=== PATIENT | female | born 1940 | race African-American/Black ===

== ENCOUNTER 2016-08-10 11:48 | Emergency (ER) | payer MEDICARE, OTHER ==
[~2016-08-10] VITALS: Ht 162.6 cm; Wt 78.0 kg
[~2016-08-10 11:48] MED LIST: AMLO5TAB22 PO; ASPI325T PO; ASPI81TA82 PO; GLUC5TAB3 PO; HYDR12.56 PO; LISI-363 PO; LORTA5 PO; NAPR500 PO; SYNT112T PO; TYLE500T PO
[2016-08-10 11:50] VITALS: BP 189/101; PULSE 87; RESP 16; TEMP 97.8; O2SAT 98
--- NOTE | 2016-08-10 12:06 | PD ---
Physical Exam Date Seen by Provider: Aug 10, 2016 Time Seen by Provider: 12:02 Narrative 76 year old female presents to the emergency department for evaluation of right hip, right knee pain, right arm pain after a fall that occurred yesterday. She reports history of falls due to peripheral neuropathy. No chest pain/headache/ dizziness before fall. Patient also reports abscess under left breast. Patient was seen at urgent care yesterday for the same. Patient awaiting bed placement. Data Data Last Documented VS Vital Signs Date Time Temp Pulse Resp B/P Pulse Ox O2 Delivery O2 Flow Rate FiO2 08/10/16 11:50 97.8 87 16 189/101 98 MDM Supervised Visit with KIEL: Charity Figueroa Aug 10, 2016 12:06
[2016-08-10] MEDS ORDERED: SODIUM CHLORIDE 0.9% FLUSH 10 ML FLUSH IVF PRN (12:45)
[2016-08-10] MEDS ORDERED: LIDOCAINE 1%/EPINEPHrine 1:100,000 SOLN 20 ML VIAL INFIL ONE (12:45)
[2016-08-10 12:54] LABS: AUTOMATED NEUTROPHIL # 7.2 TH/MM3 (1.8-7.7); BASOPHIL # 0.1 TH/MM3 (0-0.2); BASOPHIL % 0.5 % (0.0-2.0); EOSINOPHIL # 0.1 TH/MM3 (0-0.4); EOSINOPHIL % 0.6 % (0.0-4.0); HEMATOCRIT 32.6 % (35.0-46.0); HEMO FLAGS DIFF FINAL; LYMPH % 23.2 % (9.0-44.0); LYMPHOCYTE # 2.4 TH/MM3 (1.0-4.8); MEAN CELL VOLUME 79.4 FL (80.0-100.0); MEAN CORPUSCULAR HEMOGLOBIN 26.1 PG (27.0-34.0); MEAN CORPUSCULAR HGB CONC 32.8 % (32.0-36.0); MONO % 7.2 % (0.0-8.0); NEUT % 68.5 % (16.0-70.0); PLATELET COUNT 265 TH/MM3 (150-450); RED CELL DISTRIBUTION WIDTH 13.5 % (11.6-17.2); WHITE BLOOD COUNT 10.5 TH/MM3 (4.0-11.0)
[2016-08-10 13:15] LABS: POTASSIUM 3.5 MEQ/L (3.5-5.1)
[2016-08-10 13:19] LABS: BLOOD, URINE NEG (NEG); COMMENT (UR) CATH-CULT NOT IND; CULTURE IF INDICATED CATH CULTURE NOT IND; GLUCOSE,URINE 70 mg/dL (NEG); KETONE, URINE NEG (NEG); NITRITE,URINE NEG (NEG); PH, URINE 5.5 (5.0-8.5); SQUAMOUS EPITHELIAL CELL URINE 1 /hpf (0-5); URINE COLOR LIGHT-YELLOW (YELLW/STRAW)
--- NOTE | 2016-08-10 13:25 | PD ---
HPI Chief Complaint: Fall Time Seen by Provider: 12:26 Travel History International Travel<30 days: No Contact w/Intl Traveler<30days: No Traveled to known affect area: No History of Present Illness HPI Patient is a 76-year-old female who presents the emergency department with several symptoms. First she complains of generalized weakness, fatigue and frequent falls. She has a history of frequent falls and uses a walker at home. Over the last week she felt she's been more fatigued than typical and has had now for falls. Thankfully none of these time she has hit her head or injured herself other than small abrasions and a bruise to the right hip. She does note some right sided shoulder pain. She was seen at urgent care for this yesterday, she is unable to tell me whether she had her shoulder image. She also complains of an abscess or swelling to the left breast and was at urgent care yesterday was prescribed antibiotics and states that it is now draining. PFSH Past Medical History Arthritis: Yes (GENERALIZED) Anxiety: No Depression: No Heart Rhythm Problems: No Cancer: No Cardiovascular Problems: Yes High Cholesterol: Yes Chest Pain: No Congestive Heart Failure: No Cerebrovascular Accident: No Diabetes: Yes GERD: No Genitourinary: No Hiatal Hernia: No Hypertension: Yes Kidney Stones: Yes (HX OF ONE STONE WAS ABLE TO PASS THE STONE) Neurologic: Yes (HERNIATED DISCS NECK AND LOWER BACK) Reproductive: No Respiratory: No Migraines: No Seizures: No Thyroid Disease: Yes Ulcer: No ?: Not Menopausal: Yes : 2 Para: 2 Past Surgical History Cholecystectomy: Yes Hysterectomy: Yes Other Surgery: Yes (LYPOSUCTION, CARPAL TUNNEL SURG BILAT) Social History Alcohol Use: No Tobacco Use: No Substance Use: No Allergies-Medications (Allergen,Severity, Reaction): Coded Allergies: Flexeril (Verified Allergy, Severe, GASTRIC BURNING, 08/10/16) Naproxen (Verified Allergy, Severe, GASTRIC BURNING, 08/10/16) Sulfa (Verified Adverse Reaction, Unknown, Nausea/Vomiting, 08/10/16) Reported Meds & Prescriptions Reported Meds & Active Scripts Active Hydrocodone/Acetaminophen 5 mg/325 mg Acetaminophen 325/5 Hydrocodone Tab 0.5-1 Tab PO Q6H PRN Reported Aspirin 325 mg (Aspirin) 325 Mg Tab 325 Mg PO DAILY Amlodipine Besylate 5 mg (Amlodipine Besylate) 5 Mg Tab 1 Tab PO DAILY Hydrochlorothiazide 12.5 Mg Tab 12.5 Mg PO DAILY Naprosyn (Naproxen) 500 Mg Tab 500 Mg PO Q12 Aspir-81 (Aspirin) 81 Mg Tab 81 Mg PO DAILY Tylenol (Acetaminophen) 500 Mg Tab 500 Mg PO Q6HPRN Glucovance 5/500 (Glyburide/Metformin) Tab 1 Tab PO BID Synthroid (Levothyroxine Sodium) 112 Mcg Tab 112 Mcg PO DAILY Lisinopril 20 mg (Lisinopril) 20 Mg Tab 20 Mg PO BID Review of Systems Except as stated in HPI: all other systems reviewed are Neg Physical Exam Narrative GENERAL: Elderly female in no acute distress SKIN: Erythema on the underside of the left breast with abscess that is spontaneously draining with surrounding warmth HEAD: Atraumatic. Normocephalic. EYES: Pupils equal and round. No scleral icterus. No injection or drainage. ENT: No nasal bleeding or discharge. Mucous membranes pink and moist. NECK: Supple without midline tenderness to palpation CARDIOVASCULAR: Regular rate and rhythm. No murmur appreciated. RESPIRATORY: No accessory muscle use. Clear to auscultation. Breath sounds equal bilaterally. GASTROINTESTINAL: Abdomen soft, non-tender, nondistended. MUSCULOSKELETAL: No midline tenderness to palpation of thoracic or lumbar spine. Abrasions on the knees and ecchymosis to the right hip. Bilateral lower extremity range of motion and strength unremarkable. Right upper extremity with reproducible point tenderness to palpation with pain in the right posterior glenohumeral joint with pain increased with range of motion. Distal sensation and pulses intact NEUROLOGICAL: Awake and alert. Normal speech. PSYCHIATRIC: Appropriate mood and affect; insight and judgment normal. Data Data Last Documented VS Vital Signs Date Time Temp Pulse Resp B/P Pulse Ox O2 Delivery O2 Flow Rate FiO2 08/10/16 12:35 Room Air 08/10/16 11:50 97.8 87 16 189/101 98 Orders Electrocardiogram (08/10/16 12:31) Basic Metabolic Panel (Bmp) (08/10/16 12:31) Complete Blood Count With Diff (08/10/16 12:31) Urinalysis - C+S If Indicated (08/10/16 12:31) Iv Access Insert/Monitor (08/10/16 12:31) Sodium Chloride 0.9% Flush (Ns Flush) (08/10/16 12:45) Lidocai-Epi 1%-1:100,000 Inj (Xylocaine- (08/10/16 12:45) Shoulder, Complete (>2vws) (08/10/16 ) Labs Laboratory Tests Test 08/10/16 12:45 White Blood Count 10.5 TH/MM3 Red Blood Count 4.10 MIL/MM3 Hemoglobin 10.7 GM/DL Hematocrit 32.6 % Mean Corpuscular Volume 79.4 FL Mean Corpuscular Hemoglobin 26.1 PG Mean Corpuscular Hemoglobin 32.8 % Concent Red Cell Distribution Width 13.5 % Platelet Count 265 TH/MM3 Mean Platelet Volume 10.1 FL Neutrophils (%) (Auto) 68.5 % Lymphocytes (%) (Auto) 23.2 % Monocytes (%) (Auto) 7.2 % Eosinophils (%) (Auto) 0.6 % Basophils (%) (Auto) 0.5 % Neutrophils # (Auto) 7.2 TH/MM3 Lymphocytes # (Auto) 2.4 TH/MM3 Monocytes # (Auto) 0.8 TH/MM3 Eosinophils # (Auto) 0.1 TH/MM3 Basophils # (Auto) 0.1 TH/MM3 CBC Comment DIFF FINAL Differential Comment Urine Color LIGHT-YELLOW Urine Turbidity CLEAR Urine pH 5.5 Urine Specific [place] 1.007 Urine Protein NEG mg/dL Urine Glucose (UA) 70 mg/dL Urine Ketones NEG mg/dL Urine Occult Blood NEG Urine Nitrite NEG Urine Bilirubin NEG Urine Urobilinogen LESS THAN 2.0 MG/DL Urine Leukocyte Esterase NEG Urine RBC LESS THAN 1 /hpf Urine WBC LESS THAN 1 /hpf Urine Squamous Epithelial 1 /hpf Cells Microscopic Urinalysis Comment CATH-CULT NOT IND Sodium Level 140 MEQ/L Potassium Level 3.5 MEQ/L Chloride Level 101 MEQ/L Carbon Dioxide Level 32.0 MEQ/L Anion Gap 7 MEQ/L Blood Urea Nitrogen 11 MG/DL Creatinine 0.75 MG/DL Estimat Glomerular Filtration 90 ML/MIN Rate Random Glucose 213 MG/DL Calcium Level 9.4 MG/DL [facility] Medical Decision Making Medical Screen Exam Complete: Yes Emergency Medical Condition: Yes Medical Record Reviewed: Yes Differential Diagnosis 76-year-old female here with complaint of generalized weakness, frequent falls, right shoulder pain and an abscess under the breast. Differential includes failure to thrive, physical deconditioning, frequent falls, electrolyte abnormality, symptomatic anemia, UTI, musculoskeletal shoulder pain, ecchymosis , fracture, dislocation, breast abscess and cellulitis. Narrative Course He shouldn't placed on monitor, IV established and blood obtained. Her abscess was incised and drained, please see procedure note from nurse practitioner. CBC , BMP, urinalysis unremarkable. X-ray of the right shoulder showed arthritic changes but no acute fracture. Twelve-lead EKG showed sinus rhythm without notable ST abnormalities, normal intervals. Diagnosis Primary Impression: Left breast abscess Additional Impressions: Frequent falls Contusion of right shoulder Qualified Code: S40.011A - Contusion of right shoulder, initial encounter Referrals: Primary Care Physician 3 days Patient Instructions: Breast Abscess Drainage (DC), General Instructions Additional Instructions: Follow-up with primary care provider on Saturday for wound check of breast abscess. Continue Antibiotics as prescribed. Med/Other Pt SpecificInfo: No Change to Meds Disposition: 01 DISCHARGE HOME Condition: Stable Arina Roche MD Aug 10, 2016 13:25
--- NOTE | 2016-08-10 13:29 | PD ---
Physical Exam Time Seen by Provider: 13:28 Narrative I incised and drained the abscess to the left breast. Data Data Last Documented VS Vital Signs Date Time Temp Pulse Resp B/P Pulse Ox O2 Delivery O2 Flow Rate FiO2 08/10/16 12:35 Room Air 08/10/16 11:50 97.8 87 16 189/101 98 Orders Electrocardiogram (08/10/16 12:31) Basic Metabolic Panel (Bmp) (08/10/16 12:31) Complete Blood Count With Diff (08/10/16 12:31) Urinalysis - C+S If Indicated (08/10/16 12:31) Iv Access Insert/Monitor (08/10/16 12:31) Sodium Chloride 0.9% Flush (Ns Flush) (08/10/16 12:45) Lidocai-Epi 1%-1:100,000 Inj (Xylocaine- (08/10/16 12:45) Shoulder, Complete (>2vws) (08/10/16 ) Labs Laboratory Tests Test 08/10/16 12:45 White Blood Count 10.5 TH/MM3 Red Blood Count 4.10 MIL/MM3 Hemoglobin 10.7 GM/DL Hematocrit 32.6 % Mean Corpuscular Volume 79.4 FL Mean Corpuscular Hemoglobin 26.1 PG Mean Corpuscular Hemoglobin 32.8 % Concent Red Cell Distribution Width 13.5 % Platelet Count 265 TH/MM3 Mean Platelet Volume 10.1 FL Neutrophils (%) (Auto) 68.5 % Lymphocytes (%) (Auto) 23.2 % Monocytes (%) (Auto) 7.2 % Eosinophils (%) (Auto) 0.6 % Basophils (%) (Auto) 0.5 % Neutrophils # (Auto) 7.2 TH/MM3 Lymphocytes # (Auto) 2.4 TH/MM3 Monocytes # (Auto) 0.8 TH/MM3 Eosinophils # (Auto) 0.1 TH/MM3 Basophils # (Auto) 0.1 TH/MM3 CBC Comment DIFF FINAL Differential Comment Urine Color LIGHT-YELLOW Urine Turbidity CLEAR Urine pH 5.5 Urine Specific [place] 1.007 Urine Protein NEG mg/dL Urine Glucose (UA) 70 mg/dL Urine Ketones NEG mg/dL Urine Occult Blood NEG Urine Nitrite NEG Urine Bilirubin NEG Urine Urobilinogen LESS THAN 2.0 MG/DL Urine Leukocyte Esterase NEG Urine RBC LESS THAN 1 /hpf Urine WBC LESS THAN 1 /hpf Urine Squamous Epithelial 1 /hpf Cells Microscopic Urinalysis Comment CATH-CULT NOT IND Sodium Level 140 MEQ/L Potassium Level 3.5 MEQ/L Chloride Level 101 MEQ/L Carbon Dioxide Level 32.0 MEQ/L Anion Gap 7 MEQ/L Blood Urea Nitrogen 11 MG/DL Creatinine 0.75 MG/DL Estimat Glomerular Filtration 90 ML/MIN Rate Random Glucose 213 MG/DL Calcium Level 9.4 MG/DL MDM Supervised Visit with KEIL: Yes Narrative Course I incised and drained the abscess to the left breast. See my Procedure note for incision and drainage. Procedures Procedure Narrative INCISION AND DRAINAGE OF ABSCESS: The area was prepped and was sterilely draped. A subcutaneous wheal of 1% Xylocaine with epinephrine with a total number 3 mL was used to anesthetize the area properly. A number 11 scalpel was used to make a 1-cm incision across the area of the abscess. The abscess was drained, complex loculations were broken down, and irrigated with normal saline. Cultures were obtained. Quarter inch iodoform packing was placed in the wound. Sterile dressing applied. Patient advised to have packing removed in two days. Diagnosis Primary Impression: Left breast abscess Additional Impressions: Frequent falls Contusion of right shoulder Qualified Code: S40.011A - Contusion of right shoulder, initial encounter Referrals: Primary Care Physician 3 days Additional Instruction: Follow-up with primary care provider on Saturday for wound check of breast abscess. Continue Antibiotics as prescribed. Beata Nava Aug 10, 2016 13:29
--- NOTE | 2016-08-10 13:42 | RADRPT ---
EXAM DATE/TIME: 08/10/2016 13:10 [place] COMPARISON: HIP LEFT (AP & LAT), June 07, 2014, 12:07. INDICATIONS : Right shoulder pain post fall yesterday. MEDICAL HISTORY : None. SURGICAL HISTORY : None. ENCOUNTER: Initial ACUITY: 2 days PAIN SCORE: 7/10 LOCATION: Right shoulder FINDINGS: The humeral head is well situated within the glenoid fossa. There are moderate degenerative changes. No acute fracture is seen. There are degenerative changes within the a.c. joint. The visualized pulmonary parenchyma is clear. The visualized ribs appear grossly intact. CONCLUSION: 1. Arthritic changes in the glenohumeral joint and acromioclavicular joint. No acute fracture. Wm Sadler MD on August 10, 2016 at 13:40 Board Certified Radiologist. This report was verified electronically.
[2016-08-10 13:57] VITALS: BP 159/75; PULSE 71; RESP 18; O2SAT 98
--- NOTE | 2016-08-11 14:38 | EKG ---
Date Performed: 08/10/2016 Time Performed: 13:35:52 PTAGE: 76 years EKG: Sinus rhythm MODERATE VOLTAGE CRITERIA FOR LVH, CONSIDER NORMAL VARIANT POSSIBLE ANTERIOR MYOCARDIAL INFARCTION C ompared to prior tracing no significant change BORDERLINE ECG PREVIOUS TRACING : 08/12/2011 14.07 DOCTOR: Christo Atkinson Interpretating Date/Time 08/11/2016 14:34:51
== END 2016-08-10 14:10 | disposition home or self-care (01) ==
LOC: NEPD 11:48
DX: L02.818 Cutaneous abscess of other sites (principal); S40.011A Contusion of right shoulder, initial encounter; B95.62 Methicillin resistant Staphylococcus aureus infection as the cause of diseases classified elsewhere; R29.6 Repeated falls; R53.1 Weakness; E11.9 Type 2 diabetes mellitus without complications; I10 Essential (primary) hypertension; R94.31 Abnormal electrocardiogram [ECG] [EKG]; W01.0XXA Fall on same level from slipping, tripping and stumbling without subsequent striking against object, initial encounter; Y93.01 Activity, walking, marching and hiking; Y92.009 Unspecified place in unspecified non-institutional (private) residence as the place of occurrence of the external cause
CPT/HCPCS: 73030; 80048; 81001; 85025; 86403; 87070; 87186; 93005; 99285

== ENCOUNTER 2016-08-20 14:18 | Emergency (ER) | payer MEDICARE, OTHER ==
[~2016-08-20] VITALS: Ht 160 cm; Wt 77.5 kg
[2016-08-20 14:21] VITALS: BP 223/104; PULSE 66; RESP 16; TEMP 98.6; O2SAT 99
--- NOTE | 2016-08-20 16:27 | PD ---
HPI Chief Complaint: Skin Problem Time Seen by Provider: 16:21 Travel History International Travel<30 days: No Contact w/Intl Traveler<30days: No Traveled to known affect area: No History of Present Illness HPI 76-year-old female here with complaint of abscess. Patient seen here by myself recently for left breast abscess this was incised and drained. The packing is still in. Patient states that it is still painful, though is no longer draining. She also complains of right sided hip pain. On her previous ER visit she had a large hematoma to the lateral aspect of the hip. She's been able to ambulate and bear weight with her walker. PFSH Past Medical History Arthritis: Yes (GENERALIZED) Anxiety: No Depression: No Heart Rhythm Problems: No Cancer: No Cardiovascular Problems: Yes High Cholesterol: Yes Chest Pain: No Congestive Heart Failure: No Cerebrovascular Accident: No Diabetes: Yes GERD: No Genitourinary: No Hiatal Hernia: No Hypertension: Yes Kidney Stones: Yes (HX OF ONE STONE WAS ABLE TO PASS THE STONE) Neurologic: Yes (HERNIATED DISCS NECK AND LOWER BACK) Reproductive: No Respiratory: No Migraines: No Seizures: No Thyroid Disease: Yes Ulcer: No Menopausal: Yes : 2 Para: 2 Past Surgical History Cholecystectomy: Yes Hysterectomy: Yes Other Surgery: Yes (LYPOSUCTION, CARPAL TUNNEL SURG BILAT) Social History Alcohol Use: No Tobacco Use: No Substance Use: No Allergies-Medications (Allergen,Severity, Reaction): Coded Allergies: Flexeril (Verified Allergy, Severe, GASTRIC BURNING, 08/10/16) Naproxen (Verified Allergy, Severe, GASTRIC BURNING, 08/10/16) *MDRO Multi-Drug Resistant Organism (Verified Adverse Reaction, Unknown, ) 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 Sulfa (Verified Adverse Reaction, Unknown, Nausea/Vomiting, 08/10/16) Reported Meds & Prescriptions Reported Meds & Active Scripts Active Hydrocodone/Acetaminophen 5 mg/325 mg Acetaminophen 325/5 Hydrocodone Tab 0.5-1 Tab PO Q6H PRN Reported Aspirin 325 mg (Aspirin) 325 Mg Tab 325 Mg PO DAILY Amlodipine Besylate 5 mg (Amlodipine Besylate) 5 Mg Tab 1 Tab PO DAILY Hydrochlorothiazide 12.5 Mg Tab 12.5 Mg PO DAILY Naprosyn (Naproxen) 500 Mg Tab 500 Mg PO Q12 Aspir-81 (Aspirin) 81 Mg Tab 81 Mg PO DAILY Tylenol (Acetaminophen) 500 Mg Tab 500 Mg PO Q6HPRN Glucovance 5/500 (Glyburide/Metformin) Tab 1 Tab PO BID Synthroid (Levothyroxine Sodium) 112 Mcg Tab 112 Mcg PO DAILY Lisinopril 20 mg (Lisinopril) 20 Mg Tab 20 Mg PO BID Review of Systems Except as stated in HPI: all other systems reviewed are Neg Physical Exam Narrative GENERAL: Well-appearing female in no acute distress SKIN: Abscess site on the inferior aspect of the left breast is markedly improved with no surrounding erythema. No fluctuance. The site is clean and the packing was removed. HEAD: Normocephalic. EYES: No scleral icterus. No injection or drainage. ENT: No nasal bleeding or discharge. Mucous membranes pink and moist. NECK: Supple CARDIOVASCULAR: Regular rate and rhythm. RESPIRATORY: No accessory muscle use. MUSCULOSKELETAL: Right thigh hematoma is markedly improved ecchymosis has resolved and the hematoma is now only approximately 5 cm in diameter. NEUROLOGICAL: Awake and alert. Normal gait with walker. Normal speech. PSYCHIATRIC: Appropriate mood and affect; insight and judgment normal. Data Data Last Documented VS Vital Signs Date Time Temp Pulse Resp B/P Pulse Ox O2 Delivery O2 Flow Rate FiO2 08/20/16 14:21 98.6 66 16 223/104 99 Room Air MDM Medical Decision Making Medical Screen Exam Complete: Yes Emergency Medical Condition: Yes Medical Record Reviewed: Yes Differential Diagnosis 76-year-old female here for abscess. Her breast abscess has markedly improved and the packing was removed. No further treatment warranted. Patient was reassured. Hematoma has also markedly improved and she was reassured and discharged home. Narrative Course See above Diagnosis Primary Impression: Left breast abscess Additional Impression: Hematoma of right thigh Qualified Code: S70.11XA - Hematoma of right thigh, initial encounter Referrals: Primary Care Physician as needed Additional Instructions: Left breast abscess packing wound was removed. Abscess is markedly improved clinically and has now resolved. Hematoma on the right hip/thigh has also markedly improved. Continue Tylenol, ibuprofen as needed for pain and ice the affected area. Med/Other Pt SpecificInfo: No Change to Meds Disposition: 01 DISCHARGE HOME Condition: Stable Arina Roche MD Aug 20, 2016 16:27
[2016-08-20] MEDS ORDERED: IBUPROFEN 800 MG TAB PO ONE (16:45)
== END 2016-08-20 16:45 | disposition home or self-care (01) ==
LOC: NEPD 14:18
DX: N61.1 Abscess of the breast and nipple (principal); S70.11XA Contusion of right thigh, initial encounter; E11.9 Type 2 diabetes mellitus without complications; I10 Essential (primary) hypertension; X58.XXXA Exposure to other specified factors, initial encounter
CPT/HCPCS: 99283

== ENCOUNTER 2016-09-19 11:12 | Emergency (ER) | payer OTHER ==
[~2016-09-19] VITALS: Ht 160 cm; Wt 75.0 kg
[2016-09-19 11:15] VITALS: BP 216/97; PULSE 76; RESP 20; TEMP 98.6; O2SAT 98
[2016-09-19] MEDS ORDERED: LEVO112T2 PO (11:35)
[2016-09-19] MEDS ORDERED: ATOR40TA16 PO (11:35)
[2016-09-19] MEDS ORDERED: COLA100C3 PO (11:35)
[2016-09-19] MEDS ORDERED: HYDR25TA5 PO (11:35)
[2016-09-19] MEDS ORDERED: GABA300C5 PO (11:35)
[2016-09-19] MEDS ORDERED: GLUC5TAB3 PO (11:35)
[2016-09-19] MEDS ORDERED: LISI-515 PO (11:35)
[2016-09-19] MEDS ORDERED: ASPI1TAB69 PO (11:35)
[2016-09-19 11:51] VITALS: BP 200/84; PULSE 71; RESP 16; O2SAT 99
--- NOTE | 2016-09-19 12:22 | PD ---
HPI Chief Complaint: Pain: Acute or Chronic Time Seen by Provider: 11:50 Travel History International Travel<30 days: No Contact w/Intl Traveler<30days: No Traveled to known affect area: No History of Present Illness HPI 76-year-old female presents to the emergency department with chief complaint of bilateral lower extremity pain. She reports this pain has been present for greater than 3-4 months. She reports the pain as aching burning sensation in the feet and ankles, nonradiating, no alleviating factors. She reports that her primary care put her on gabapentin for neuropathy, but the pain persists prompting her to come to the emergency department for evaluation. Patient has past medical history of type 2 diabetes, hyperlipidemia, hypothyroidism, hypertension, diabetic neuropathy. Patient currently taking metformin, atorvastatin, aspirin, HCTZ, levothyroxine, and gabapentin. She also reports she was recently seen by podiatry for the chronic foot pain and was ordered an MRI but has not obtained that imaging. She reports some difficulty walking because of the pain, but is able to ambulate with her walker. She reports she has family support at home to help care for her. PFSH Past Medical History Arthritis: Yes (GENERALIZED) Anxiety: No Depression: No Heart Rhythm Problems: No Cancer: No Cardiovascular Problems: Yes High Cholesterol: Yes Chest Pain: No Congestive Heart Failure: No Cerebrovascular Accident: Yes Diabetes: Yes Patient Takes Glucophage: Yes GERD: No Genitourinary: No Headaches: No Hiatal Hernia: No Hypertension: Yes Kidney Stones: Yes (HX OF ONE STONE WAS ABLE TO PASS THE STONE) Musculoskeletal: Yes Neurologic: Yes (HERNIATED DISCS NECK AND LOWER BACK) Reproductive: No Respiratory: No Migraines: No Seizures: No Thyroid Disease: Yes Ulcer: No Tetanus Vaccination: > 5 Years Influenza Vaccination: Yes Menopausal: Yes : 2 Para: 2 Past Surgical History Cholecystectomy: Yes Hysterectomy: Yes Other Surgery: Yes (LYPOSUCTION, CARPAL TUNNEL SURG BILAT) Social History Alcohol Use: No Tobacco Use: No Substance Use: No Allergies-Medications (Allergen,Severity, Reaction): Coded Allergies: Flexeril (Verified Allergy, Severe, GASTRIC BURNING, 09/19/16) Naproxen (Verified Allergy, Severe, GASTRIC BURNING, 09/19/16) *MDRO Multi-Drug Resistant Organism (Verified Adverse Reaction, Unknown, ) 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 Sulfa (Verified Adverse Reaction, Unknown, Nausea/Vomiting, 09/19/16) Reported Meds & Prescriptions Reported Meds & Active Scripts Active Ultram (Tramadol HCl) 50 Mg Tab 50 Mg PO Q6H PRN Reported Atorvastatin (Atorvastatin Calcium) 40 Mg Tab 40 Mg PO HS Lisinopril 20 Mg Tab 20 Mg PO DAILY Colace (Docusate Sodium) 100 Mg Cap 100 Mg PO HS PRN Gabapentin 300 Mg Cap 300 Mg PO TID Levothyroxine (Levothyroxine Sodium) 112 Mcg Tab 112 Mcg PO DAILY Aspirin 81 Mg Tabdr 81 Mg PO DAILY Glucovance (Glyburide-Metformin) 5-500 Mg Tab 1 Tab PO BID Hydrochlorothiazide 25 Mg Tab 25 Mg PO DAILY Review of Systems Except as stated in HPI: all other systems reviewed are Neg Physical Exam Narrative GENERAL: Well appearing elderly female. SKIN: Warm and dry. HEAD: Atraumatic. Normocephalic. EYES: Pupils equal and round. No scleral icterus. No injection or drainage. ENT: No nasal bleeding or discharge. Mucous membranes pink and moist. NECK: Trachea midline. No JVD. CARDIOVASCULAR: Regular rate and rhythm. RESPIRATORY: No accessory muscle use. Clear to auscultation. Breath sounds equal bilaterally. GASTROINTESTINAL: Abdomen soft, non-tender, nondistended. Hepatic and splenic margins not palpable. MUSCULOSKELETAL: Extremities without clubbing, cyanosis. Mild nonpitting edema to the left ankle. No obvious deformities. Pulses present bilaterally lower extremities. NEUROLOGICAL: Awake and alert. No obvious cranial nerve deficits. Motor grossly within normal limits. Five out of 5 muscle strength in the arms and legs. Normal speech. PSYCHIATRIC: Appropriate mood and affect; insight and judgment normal. Data Data Last Documented VS Orders Etomidate Inj (Amidate Inj) (09/20/16 00:03) Rocuronium Inj (Zemuron Inj) (09/20/16 00:04) [facility] Medical Decision Making Medical Screen Exam Complete: Yes Emergency Medical Condition: Yes Medical Record Reviewed: Yes Differential Diagnosis Diabetic neuropathy versus plantar fasciitis versus peripheral vascular disease Narrative Course 76-year-old woman who presents to the emergency department for acute on chronic worsening pain in her bilateral lower extremities. Patient has history of diabetic neuropathy & reports her gabapentin is not improving her pain. Physical exam & history consistent with Diabetic neuropathy. Patient will be given prescription for Ultram and instructed to follow up with her primary care doctor if for recheck. Diagnosis Primary Impression: Neuropathy Referrals: Primary Care Physician Patient Instructions: Narcotic given in the ED, General Instructions Scripts Tramadol (Ultram)50 Mg Tab50 Mg PO Q6H PRN (PAIN) #12 TAB Ref 0 Prov:Richard Villela MD 09/19/16 Disposition: 01 DISCHARGE HOME Condition: Stable Kellen Menchaca September 19, 2016 12:04
--- NOTE | 2016-09-19 12:25 | PD ---
Data Data Last Documented VS Vital Signs Date Time Temp Pulse Resp B/P Pulse Ox O2 Delivery O2 Flow Rate FiO2 09/19/16 11:51 71 16 200/84 99 Room Air 09/19/16 11:15 98.6 MDM Supervised Visit with KIEL: Yes Narrative Course The history, exam, and medical decision-making in the associated mid-level provider note were completed with my assistance. I reviewed and agree with the findings presented. I attest that I had a [id number] encounter with the patient on the same day, and personally performed and documented my assessment and findings in the medical record. *My assessment and Findings: 76 year-old woman with several months worth of lower bilateral foot pain, here for uncontrolled pain. She likely has neuropathy. Don't see any evidence of infection, DVT, chronic fractures. She is oriented have an MRI ordered by her primary physician. We give her additional pain control here and have her follow up as an outpatient. Richard Villela MD September 19, 2016 12:25
[2016-09-19] MEDS ORDERED: ULTR50TA5 PO (12:26)
[2016-09-19 12:30] VITALS: BP 130/77; TEMP 97.8
[2016-09-20] MEDS ORDERED: ETOMIDATE 20 MG/10 ML VIAL ONE (00:03)
[2016-09-20] MEDS ORDERED: ROCURONIUM INJ 50 MG/5 ML VIAL ONE (00:04)
== END 2016-09-19 12:28 | disposition home or self-care (01) ==
LOC: NEPC 11:12
DX: G62.9 Polyneuropathy, unspecified (principal); M79.672 Pain in left foot; M79.671 Pain in right foot; E11.8 Type 2 diabetes mellitus with unspecified complications; I10 Essential (primary) hypertension
CPT/HCPCS: 99283

== ENCOUNTER 2016-10-17 18:16 | Emergency (ER) | payer OTHER ==
[~2016-10-17] VITALS: Ht 160 cm; Wt 69.0 kg
[~2016-10-17 18:16] MED LIST changes: -AMLO5TAB22 PO; +ASPI1TAB69 PO; -ASPI325T PO; -ASPI81TA82 PO; +ATOR40TA16 PO; +COLA100C3 PO; +GABA300C5 PO; -HYDR12.56 PO; +HYDR25TA5 PO; +LEVO112T2 PO; -LISI-363 PO; +LISI-515 PO; -LORTA5 PO; -NAPR500 PO; -SYNT112T PO; -TYLE500T PO; +ULTR50TA5 PO
[2016-10-17 18:17] VITALS: BP 217/94; PULSE 68; RESP 20; TEMP 98.3; O2SAT 98
[2016-10-17 18:25] VITALS: BP 174/76; PULSE 66; RESP 20; O2SAT 99
[2016-10-17] MEDS ORDERED: SODIUM CHLORIDE 0.9% FLUSH 10 ML FLUSH IVF PRN (22:00)
[2016-10-17 22:05] VITALS: RESP 18; O2SAT 97
--- NOTE | 2016-10-17 22:13 | PD ---
HPI Chief Complaint: Fall Time Seen by Provider: 22:03 Travel History International Travel<30 days: No Contact w/Intl Traveler<30days: No Traveled to known affect area: No History of Present Illness HPI 76-year-old female with a history of hypertension, hyperlipidemia, diabetes, diabetic neuropathy presents to the emergency department for evaluation of fall that occurred last night. Patient states that while standing in a refrigerator she opened the door down to shrimp picker her dog's food out of the refrigerator and when she stood up she felt weak and fell down onto her left side hitting the left side of her head. She denies loss of consciousness. States that she falls frequently and that this is been her many times in the past. She states that she did not come in last night because she didn't want to call an ambulance and cannot drive herself. States that she waited until her son could bring her tonight. Patient's son is at bedside and states that his mother moves too quickly which is why she falls frequently. She has neuropathy in bilateral feet and states that she cannot feel her feet which makes ambulation difficult. She even has a walking boot on the left foot extending to just below the knee specifically because of her neuropathy. The patient denies any syncopal event, loss of consciousness, lightheadedness, dizziness, chest pain, shortness breath, nausea, vomiting, abdominal pain. She is complaining of pain in the left side of her head and states that she has a bump on the side of her head. Denies anticoagulation. No other complaints. PFSH Past Medical History Arthritis: Yes (GENERALIZED) Anxiety: No Depression: No Heart Rhythm Problems: No Cancer: No Cardiovascular Problems: Yes High Cholesterol: Yes Chest Pain: No Congestive Heart Failure: No Cerebrovascular Accident: Yes Diabetes: Yes Patient Takes Glucophage: Yes GERD: No Genitourinary: No Headaches: No Hiatal Hernia: No Hypertension: Yes Kidney Stones: Yes (HX OF ONE STONE WAS ABLE TO PASS THE STONE) Musculoskeletal: Yes Neurologic: Yes (HERNIATED DISCS NECK AND LOWER BACK) Reproductive: No Respiratory: No Migraines: No Seizures: No Thyroid Disease: Yes Ulcer: No ?: Not Menopausal: Yes : 2 Para: 2 Past Surgical History Cholecystectomy: Yes Hysterectomy: Yes Other Surgery: Yes (LYPOSUCTION, CARPAL TUNNEL SURG BILAT) Social History Alcohol Use: No Tobacco Use: No Substance Use: No Allergies-Medications (Allergen,Severity, Reaction): Coded Allergies: Flexeril (Verified Allergy, Severe, GASTRIC BURNING, 10/17/16) Naproxen (Verified Allergy, Severe, GASTRIC BURNING, 10/17/16) *MDRO Multi-Drug Resistant Organism (Verified Adverse Reaction, Unknown, ) 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 Sulfa (Verified Adverse Reaction, Unknown, Nausea/Vomiting, 10/17/16) Reported Meds & Prescriptions Reported Meds & Active Scripts Active Ultram (Tramadol HCl) 50 Mg Tab 50 Mg PO Q6H PRN Reported Atorvastatin (Atorvastatin Calcium) 40 Mg Tab 40 Mg PO HS Lisinopril 20 Mg Tab 20 Mg PO DAILY Gabapentin 300 Mg Cap 300 Mg PO TID Levothyroxine (Levothyroxine Sodium) 112 Mcg Tab 112 Mcg PO DAILY Glucovance (Glyburide-Metformin) 5-500 Mg Tab 1 Tab PO BID Hydrochlorothiazide 25 Mg Tab 25 Mg PO DAILY Review of Systems Except as stated in HPI: all other systems reviewed are Neg Physical Exam Narrative GENERAL: Well-nourished and well-developed pleasant patient in no acute distress who is nontoxic appearing. SKIN: Warm and dry. HEAD: Normocephalic and atraumatic. Small contusion to left scalp with tenderness to palpation. EYES: No injection, drainage, or hyphema noted. PERRLA. EOMI. ENT: No nasal drainage noted. Oropharynx is clear. NECK: Supple and the trachea is midline. No obvious deformities or midline cervical spine tenderness. Full range of motion. CARDIOVASCULAR: Regular rate and rhythm. RESPIRATORY: Breath sounds are equal bilaterally with no accessory muscle use, wheezing, rhonchi, or crackles. GASTROINTESTINAL: Abdomen is soft, non-tender, and nondistended. MUSCULOSKELETAL: No obvious deformities, swelling, cyanosis, or ecchymosis is present throughout the upper and lower extremities. Patient has full range of motion without any signs of neurovascular compromise. Strength 5/5 upper and lower extremities equal bilaterally. NEUROLOGICAL: Awake, alert, and oriented. Normal speech and gait. Cranial nerves are grossly intact. Data Data Last Documented VS Vital Signs Date Time Temp Pulse Resp B/P Pulse Ox O2 Delivery O2 Flow Rate FiO2 10/17/16 18:25 66 20 174/76 99 10/17/16 18:17 98.3 Room Air Orders Electrocardiogram (10/17/16 22:00) Complete Blood Count With Diff (10/17/16 22:00) Comprehensive Metabolic Panel (10/17/16 22:00) Magnesium (Mg) (10/17/16 22:00) Troponin I (10/17/16 22:00) Urinalysis - C+S If Indicated (10/17/16 22:00) Chest, Single Ap (10/17/16 22:00) Ct Brain W/O Iv Contrast(Rout) (10/17/16 22:00) Ecg Monitoring (10/17/16 22:00) Iv Access Insert/Monitor (10/17/16 22:00) Oximetry (10/17/16 22:00) Sodium Chloride 0.9% Flush (Ns Flush) (10/17/16 22:00) Orthostatic Vital Signs (10/17/16 22:00) Labs Laboratory Tests Test 10/17/16 22:10 White Blood Count 10.9 TH/MM3 Red Blood Count 4.32 MIL/MM3 Hemoglobin 10.7 GM/DL Hematocrit 34.0 % Mean Corpuscular Volume 78.7 FL Mean Corpuscular Hemoglobin 24.8 PG Mean Corpuscular Hemoglobin 31.5 % Concent Red Cell Distribution Width 13.7 % Platelet Count 248 TH/MM3 Mean Platelet Volume 10.1 FL Neutrophils (%) (Auto) 60.1 % Lymphocytes (%) (Auto) 32.0 % Monocytes (%) (Auto) 6.2 % Eosinophils (%) (Auto) 1.2 % Basophils (%) (Auto) 0.5 % Neutrophils # (Auto) 6.6 TH/MM3 Lymphocytes # (Auto) 3.5 TH/MM3 Monocytes # (Auto) 0.7 TH/MM3 Eosinophils # (Auto) 0.1 TH/MM3 Basophils # (Auto) 0.1 TH/MM3 CBC Comment DIFF FINAL Differential Comment Sodium Level 141 MEQ/L Potassium Level 3.7 MEQ/L Chloride Level 101 MEQ/L Carbon Dioxide Level 31.3 MEQ/L Anion Gap 9 MEQ/L Blood Urea Nitrogen 15 MG/DL Creatinine 0.62 MG/DL Estimat Glomerular Filtration 113 ML/MIN Rate Random Glucose 106 MG/DL Calcium Level 9.4 MG/DL Magnesium Level 2.3 MG/DL Total Bilirubin 0.8 MG/DL Aspartate Amino Transf 22 U/L (AST/SGOT) Alanine Aminotransferase 28 U/L (ALT/SGPT) Alkaline Phosphatase 74 U/L Troponin I LESS THAN 0.02 NG/ML Total Protein 7.5 GM/DL Albumin 4.4 GM/DL MDM Medical Decision Making Medical Screen Exam Complete: Yes Emergency Medical Condition: Yes Differential Diagnosis Weakness versus neuropathy versus minor head injury versus contusion Narrative Course 76-year-old female presents to the emergency department for evaluation of all that occurred yesterday evening. Patient is afebrile. She is initially hypertensive low blood pressure of 217/94. Blood pressure is now 174/76. Otherwise vital signs within normal limits. She is reporting frequent falls and has bilateral lower extremity neuropathy and difficulty ambulation secondary to this condition. She is not describing a syncopal event. No focal neurologic deficits. We'll check basic labs and a head CT. If these are unremarkable the patient can be discharged home. CBC shows mild anemia with hemoglobin of 10.7, hematocrit 34.0. Chest x-ray shows compensated cardiomegaly but no acute abnormalities. Troponin is less than 0.02. Patient signed out to my attending physician Dr. Zurita who will assume care of the patient and disposition pending remainder of labs and head CT. Beata Bowden Oct 17, 2016 22:13
[2016-10-17 22:22] LABS: AUTOMATED NEUTROPHIL # 6.6 TH/MM3 (1.8-7.7); BASOPHIL # 0.1 TH/MM3 (0-0.2); BASOPHIL % 0.5 % (0.0-2.0); EOSINOPHIL # 0.1 TH/MM3 (0-0.4); EOSINOPHIL % 1.2 % (0.0-4.0); HEMO FLAGS DIFF FINAL; LYMPHOCYTE # 3.5 TH/MM3 (1.0-4.8); MEAN CELL VOLUME 78.7 FL (80.0-100.0); MEAN CORPUSCULAR HEMOGLOBIN 24.8 PG (27.0-34.0); MEAN CORPUSCULAR HGB CONC 31.5 % (32.0-36.0); MONO % 6.2 % (0.0-8.0); NEUT % 60.1 % (16.0-70.0); PLATELET COUNT 248 TH/MM3 (150-450); RED BLOOD COUNT 4.32 MIL/MM3 (4.00-5.30); RED CELL DISTRIBUTION WIDTH 13.7 % (11.6-17.2); WHITE BLOOD COUNT 10.9 TH/MM3 (4.0-11.0)
[2016-10-17 22:30] VITALS: BP_SYST 185; BP_SYST 188; BP_SYST 191; BP_DIAS 79; BP_DIAS 82; BP_DIAS 83; RESP 18
--- NOTE | 2016-10-17 22:32 | RADRPT ---
EXAM DATE/TIME: 10/17/2016 22:21 [facility] COMPARISON: Report only CHEST PA & LAT, August 12, 2011, 13:29. INDICATIONS : Weakness starting today MEDICAL HISTORY : None. SURGICAL HISTORY : None. ENCOUNTER: Initial ACUITY: 1 day PAIN SCORE: 0/10 LOCATION: Bilateral chest FINDINGS: No infiltrate, effusion or pneumothorax. Mild compensated cardiomegaly. CONCLUSION: Compensated cardiomegaly, by report unchanged. No acute cardiopulmonary disease demonstrated. Justice Arriaga MD on October 17, 2016 at 22:29 Board Certified Radiologist. This report was verified electronically.
[2016-10-17 22:48] LABS: ALKALINE PHOSPHATASE 74 U/L (45-117); ALT (GPT) 28 U/L (10-53); TOTAL BILIRUBIN ADULT 0.8 MG/DL (0.2-1.0)
[2016-10-17 22:52] LABS: ANION GAP 9 MEQ/L (5-15); AST (GOT) 22 U/L (15-37); BICARBONATE 31.3 MEQ/L (21.0-32.0); BLOOD UREA NITROGEN 15 MG/DL (7-18); CHLORIDE 101 MEQ/L (98-107); GLOMERULAR FILTRATION RATE 113 ML/MIN (>89); MAGNESIUM 2.3 MG/DL (1.5-2.5); POTASSIUM 3.7 MEQ/L (3.5-5.1); SODIUM (NA) 141 MEQ/L (136-145)
--- NOTE | 2016-10-17 23:00 | RADRPT ---
EXAM DATE/TIME: 10/17/2016 22:51 [facility] COMPARISON: CT BRAIN W/O CONTRAST, March 29, 2014, 11:32. INDICATIONS : Patient fell hitting left side of head. General weakness. RADIATION DOSE: 44.04 CTDIvol (mGy) MEDICAL HISTORY : Cerebrovascular disease. Hypertension. Diabetes. SURGICAL HISTORY : None. ENCOUNTER: Initial ACUITY: 1 day PAIN SCALE: 3/10 LOCATION: cranial TECHNIQUE: Multiple contiguous axial images were obtained of the head. Using automated exposure control and adj ustment of the mA and/or kV according to patient size, radiation dose was kept as low as reasonably a chievable to obtain optimal diagnostic quality images. FINDINGS: There is no evidence for intracranial hemorrhage, mass effect, mass lesions, edema, or extra-axial fl uid collections. The visualized bony structures appear intact. The ventricles are normal size for t he patient's age. There are no signs of acute infarction for technique. CONCLUSION: Unremarkable study. Mehrdad Fairchild MD on October 17, 2016 at 22:57 Board Certified Radiologist. This report was verified electronically.
--- NOTE | 2016-10-17 23:11 | PD ---
Data Data Last Documented VS Vital Signs Date Time Temp Pulse Resp B/P Pulse Ox O2 Delivery O2 Flow Rate FiO2 10/17/16 22:30 71 18 188/83 76 18 185/79 85 18 191/82 10/17/16 22:05 97 Room Air 10/17/16 18:17 98.3 Orders Electrocardiogram (10/17/16 22:00) Complete Blood Count With Diff (10/17/16 22:00) Comprehensive Metabolic Panel (10/17/16 22:00) Magnesium (Mg) (10/17/16 22:00) Troponin I (10/17/16 22:00) Urinalysis - C+S If Indicated (10/17/16 22:00) Chest, Single Ap (10/17/16 22:00) Ct Brain W/O Iv Contrast(Rout) (10/17/16 22:00) Ecg Monitoring (10/17/16 22:00) Iv Access Insert/Monitor (10/17/16 22:00) Oximetry (10/17/16 22:00) Sodium Chloride 0.9% Flush (Ns Flush) (10/17/16 22:00) Orthostatic Vital Signs (10/17/16 22:00) Labs Laboratory Tests Test 10/17/16 22:10 White Blood Count 10.9 TH/MM3 Red Blood Count 4.32 MIL/MM3 Hemoglobin 10.7 GM/DL Hematocrit 34.0 % Mean Corpuscular Volume 78.7 FL Mean Corpuscular Hemoglobin 24.8 PG Mean Corpuscular Hemoglobin 31.5 % Concent Red Cell Distribution Width 13.7 % Platelet Count 248 TH/MM3 Mean Platelet Volume 10.1 FL Neutrophils (%) (Auto) 60.1 % Lymphocytes (%) (Auto) 32.0 % Monocytes (%) (Auto) 6.2 % Eosinophils (%) (Auto) 1.2 % Basophils (%) (Auto) 0.5 % Neutrophils # (Auto) 6.6 TH/MM3 Lymphocytes # (Auto) 3.5 TH/MM3 Monocytes # (Auto) 0.7 TH/MM3 Eosinophils # (Auto) 0.1 TH/MM3 Basophils # (Auto) 0.1 TH/MM3 CBC Comment DIFF FINAL Differential Comment Sodium Level 141 MEQ/L Potassium Level 3.7 MEQ/L Chloride Level 101 MEQ/L Carbon Dioxide Level 31.3 MEQ/L Anion Gap 9 MEQ/L Blood Urea Nitrogen 15 MG/DL Creatinine 0.62 MG/DL Estimat Glomerular Filtration 113 ML/MIN Rate Random Glucose 106 MG/DL Calcium Level 9.4 MG/DL Magnesium Level 2.3 MG/DL Total Bilirubin 0.8 MG/DL Aspartate Amino Transf 22 U/L (AST/SGOT) Alanine Aminotransferase 28 U/L (ALT/SGPT) Alkaline Phosphatase 74 U/L Troponin I LESS THAN 0.02 NG/ML Total Protein 7.5 GM/DL Albumin 4.4 GM/DL [facility] Medical Record Reviewed: Yes Supervised Visit with KIEL: Yes Narrative Course I, Dr. Zurita, have reviewed the advance practice practitioner's documentation and am in agreement, met with the patient face to face, made the diagnosis, and the medical decision making was done by me. *My assessment and Findings: CBC & BMP Diagram 10/17/16 22:10 LFTs normal Tn < 0.[address] 10/17/162199 Signed Impressions: Service Date/Time: Monday, October 17, 2016 22:51 - CONCLUSION: Unremarkable study. Mehrdad Fairchild MD Chest X-Ray 10/17/162199 Signed Impressions: Service Date/Time: Monday, October 17, 2016 22:21 - CONCLUSION: Compensated cardiomegaly, by report unchanged. No acute cardiopulmonary disease demonstrated. Justice Arriaga MD The patient was reassessed at 1130pm and was found resting comfortably and feeling better, is alert and in no distress. The patients results and examination findings were discussed. The repeat examination is unremarkable and benign. The history, exam, diagnostic testing, and current condition do not suggest any significant pathology to warrant further testing, continued ED treatment, admission, or surgical evaluation at this point. The vital signs have been stable. The patient does not have uncontrollable pain, intractable vomiting, or other significant symptoms. The patient's condition is stable and appropriate for discharge. The patient will pursue further outpatient evaluation with a primary care physician or other designated or consulting physician as indicated in the discharge instructions. The patient expressed understanding and was agreeable with this plan. Diagnosis Primary Impression: Frequent falls Additional Impression: Head trauma Qualified Code: S09.90XA - Head trauma, initial encounter Referrals: Candelario Camara MD 2 days Additional Instruction: You have a choice when it comes to health care, and we are glad that you chose [facility]. Hopefully, we have met your expectations on today's visit. You are welcome to return to [facility] at any time, as we are committed to meeting the health care needs of our community. Disposition: 01 DISCHARGE HOME Condition: Wm Crowell MD Oct 17, 2016 23:10
== END 2016-10-18 00:18 | disposition home or self-care (01) ==
LOC: NEPC 18:16
DX: S09.90XA Unspecified injury of head, initial encounter (principal); I10 Essential (primary) hypertension; E11.40 Type 2 diabetes mellitus with diabetic neuropathy, unspecified; W19.XXXA Unspecified fall, initial encounter; Y93.89 Activity, other specified; Z79.84 Long term (current) use of oral hypoglycemic drugs; Z79.899 Other long term (current) drug therapy
CPT/HCPCS: 70450; 71010; 80053; 83735; 84484; 85025; 99284

== ENCOUNTER 2017-01-26 20:31 | Emergency (ER) | payer OTHER, MEDICAID ==
[~2017-01-26 20:31] MED LIST changes: -ASPI1TAB69 PO; -COLA100C3 PO
[2017-01-26 20:36] VITALS: BP 225/98; PULSE 72; RESP 16; TEMP 98.9; O2SAT 98
[2017-01-26 22:22] VITALS: BP 233/98; PULSE 72; RESP 18; O2SAT 99
[2017-01-26] MEDS ORDERED: CLINDAMYCIN 150 MG CAP PO ONE (22:30)
[2017-01-26] MEDS ORDERED: ACETAMINOPHEN/HYDROcodone 325 MG/5 MG TAB PO ONE (22:30)
[2017-01-26] MEDS ORDERED: CLIN1CAP6 PO (23:01)
--- NOTE | 2017-01-26 23:02 | PD ---
HPI Chief Complaint: Pain: Acute or Chronic Time Seen by Provider: 22:17 Travel History International Travel<30 days: No Contact w/Intl Traveler<30days: No Traveled to known affect area: No History of Present Illness HPI This 76 year-old woman who presents to the emergency department complaining of pain in her left arm that radiates into her chest. She has an abscess there that straining purulent drainage. Been her for several days. She's had one under her left breast before. No fevers. No other complaints. 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 Sulfa (Sulfonamide Antibiotics) (Unverified Adverse Reaction, Unknown, Nausea/Vomiting, 01/26/17) Reported Meds & Prescriptions Reported Meds & Active Scripts Active Ultram (Tramadol HCl) 50 Mg Tab 50 Mg PO Q6H PRN Reported Atorvastatin (Atorvastatin Calcium) 40 Mg Tab 40 Mg PO HS Lisinopril 20 Mg Tab 20 Mg PO DAILY Gabapentin 300 Mg Cap 300 Mg PO TID Levothyroxine (Levothyroxine Sodium) 112 Mcg Tab 112 Mcg PO DAILY Glucovance (Glyburide-Metformin) 5-500 Mg Tab 1 Tab PO BID Hydrochlorothiazide 25 Mg Tab 25 Mg PO DAILY Review of Systems Except as stated in HPI: all other systems reviewed are Neg Physical Exam Narrative GENERAL: Well-appearing 76 year-old woman, no acute distress. SKIN: Focused skin assessment warm/dry. On the left axilla she has a small focal area of induration about 2 x 2 centimeters, with erythema warmth and redness. Attack to be draining purulent drainage. HEAD: Atraumatic. Normocephalic. EYES: Pupils equal and round. No scleral icterus. No injection or drainage. ENT: No nasal bleeding or discharge. Mucous membranes pink and moist. NECK: Trachea midline. No JVD. CARDIOVASCULAR: Regular rate and rhythm. No murmur appreciated. RESPIRATORY: No accessory muscle use. Clear to auscultation. Breath sounds equal bilaterally. GASTROINTESTINAL: Abdomen soft, non-tender, nondistended. Hepatic and splenic margins not palpable. MUSCULOSKELETAL: No obvious deformities. Data Data Last Documented VS Vital Signs Date Time Temp Pulse Resp B/P (MAP) Pulse Ox O2 Delivery O2 Flow Rate FiO2 01/26/17 22:22 72 18 233/98 (143) 99 Room Air 01/26/17 20:36 98.9 Orders Orders Wound Culture And Gram Stain (01/26/17 22:27) Acetamin-Hydrocod 325-5 Mg ([place] 5-325 (01/26/17 22:30) Clindamycin (Cleocin) (01/26/17 22:30) MDM Medical Decision Making Medical Screen Exam Complete: Yes Emergency Medical Condition: Yes Differential Diagnosis Left axillary abscess, cellulitis, pneumonia, other Narrative Course Medical decision making This 76 year-old woman who presents to the emergency department complaining of abscess in her left axilla to straining spontaneously. Wound culture obtained. Culture with antibiotics. She is allergic to sulfa. Diagnosis Primary Impression: Abscess of left axilla Additional Instructions: Continue warm compresses or showers 3-4 times daily. Continue to gently express pus as demonstrated. Take antibiotics as prescribed. Return to the emergency department for any worsening pain redness swelling, any worsening chest pain or trouble breathing, any fevers, or any other new or worsening symptoms. Med/Other Pt SpecificInfo: Prescription(s) given Scripts Clindamycin (Clindamycin) 300 Mg Cap 300 MG PO TID for Infection, #21 CAP 0 Refills Prov: Richard Villela MD 01/26/17 Disposition: 01 DISCHARGE HOME Condition: Stable Richard Villela MD Jan 26, 2017 23:02
[2017-01-26] MEDS ORDERED: HYDROCHLOROTHIAZIDE 25 MG TAB PO ONE (23:15)
== END 2017-01-26 23:31 | disposition home or self-care (01) ==
LOC: NEPC 20:31
DX: L02.412 Cutaneous abscess of left axilla (principal); B95.62 Methicillin resistant Staphylococcus aureus infection as the cause of diseases classified elsewhere; I10 Essential (primary) hypertension; R07.9 Chest pain, unspecified; E11.9 Type 2 diabetes mellitus without complications; E03.9 Hypothyroidism, unspecified; E78.00 Pure hypercholesterolemia, unspecified; Z87.39 Personal history of other diseases of the musculoskeletal system and connective tissue; Z86.79 Personal history of other diseases of the circulatory system
CPT/HCPCS: 86403; 87070; 87186; 87205; 99283

== ENCOUNTER 2018-06-06 09:27 | Inpatient (IN) ==
[2018-06-06 09:58] LABS: Baso % (Auto) 0.5 % (0.0-2.0); Eos # (Auto) 0.1 th/mm3 (0.0-0.4); Eos % (Auto) 1.3 % (0.0-4.0); Hematocrit 33.8 % (35.0-46.0); Hemoglobin 10.7 gm/dL (11.6-15.3); Lymph # (Auto) 2.7 th/mm3 (1.0-4.8); Mean Corpuscular HGB Conc 31.6 % (32.0-36.0); Mean Corpuscular Hemoglobin 25.8 pg (27.0-34.0); Mean Corpuscular Volume 81.5 fL (80.0-100.0); Mean Platelet Volume 10.4 fL (7.0-11.0); Mono # (Auto) 0.5 th/mm3 (0.0-0.9); Mono % (Auto) 5.8 % (0.0-8.0); Neut # (Auto) 4.7 th/mm3 (1.8-7.7); Neut % (Auto) 58.4 % (16.0-70.0); Platelet Count 238 th/mm3 (150-450); Red Blood Count 4.15 mil/mm3 (4.00-5.30); Red Cell Distribution Width 13.1 % (11.6-17.2)
--- NOTE | 2018-06-06 10:09 | ED ---
HPI General Chief complaint: Weakness Stated complaint: Leg Pain Time Seen by Provider: 06/06/18 09:32 Source: patient Limitations: no limitations History of Present Illness HPI Narrative: Patient is a 78-year-old female, past medical history significant for diabetes and hypertension, who presents with complaint of generalized weakness that has been worsening over the last several weeks with urinary frequency. She lives alone and states that she was having increasing difficulty walking stating that she was often peeing while walking. She has progressed in weakness and is unable to walk on her own anymore. She is now just urinating on herself in her bed. She denies fever. She denies chest pain , shortness of breath, abdominal pain. She denies focal weakness. Complaint: Reports generalized weakness Onset (ago): week(s) Duration: constant Location: Reports generalized Migration: Reports none Severity: moderate Relieving factors: none Exacerbating factors: none Associated symptoms: Reports other Related Data Home Medications Medication Instructions Recorded Confirmed glipizide-metformin 1 tab PO TID 06/06/18 06/06/18 hydrochlorothiazide 25 mg PO DAILY 06/06/18 06/06/18 lisinopril 20 mg PO DAILY 06/06/18 06/06/18 naproxen [Naprosyn] 500 mg PO BID 06/06/18 06/06/18 Allergies Allergy/AdvReac Type Severity Reaction Status Date / Time cyclobenzaprine Allergy Severe GASTRIC Unverified 01/26/17 21:02 BURNING naproxen Allergy Severe GASTRIC Unverified 01/26/17 21:02 BURNING Sulfa (Sulfonamide AdvReac Unknown Nausea/Vomi Unverified 01/26/17 21:02 Antibiotics) ting *MDRO Multi-Drug Resistant AdvReac Unknown Hives Uncoded 06/06/18 09:34 Organism Review of Systems ROS: all other systems reviewed are negative [facility] Medical History Medical History Diabetes (Acute) HBP (high blood pressure) (Acute) History of urinary infection (Acute) Social History Social History Substance History: No History of Abuse Second Hand Smoke Exposure: No Smoking Status: Never smoker How Often Do You Have a Drink Containing Alcohol: Never Recent Travel in [facility] [place] within the Last 8 Weeks: No Recent Out of Country Travel within the Last 8 Weeks: No Immunization History Tetanus Immunization: >5 Years Exam Narrative Exam Narrative: GENERAL: Well-appearing elderly female in no acute distress, strong urine smell SKIN: Focused skin assessment warm/dry. No rashes. HEAD: Atraumatic. Normocephalic. EYES: Pupils equal and round. No scleral icterus. No injection or drainage. ENT: No nasal bleeding or discharge. Mucous membranes pink and moist. NECK: Trachea midline. No JVD. CARDIOVASCULAR: Regular rate and rhythm. No murmur appreciated. Intact and equal peripheral pulses. RESPIRATORY: No accessory muscle use. Clear to auscultation. Breath sounds equal bilaterally. GASTROINTESTINAL: Abdomen soft, non-tender, nondistended. Hepatic and splenic margins not palpable. MUSCULOSKELETAL: No obvious deformities. No clubbing. No cyanosis. No edema. NEUROLOGICAL: Awake and alert but slightly confused. No obvious cranial nerve deficits. Diffuse generalized weakness. Numbness to her bilateral feet in a stocking distribution which she states is old and has been present for several years. Normal speech. PSYCHIATRIC: Appropriate mood and affect; insight and judgment normal. Course Initial Documented Vital Signs Temperature 98.9 F 06/06/18 09:36 Pulse Rate 65 06/06/18 09:36 Respiratory Rate 19 06/06/18 09:36 Blood Pressure 186/84 H 06/06/18 09:36 Pulse Oximetry 100 06/06/18 09:36 Last Documented Vital Signs Temperature 98.1 F 06/06/18 14:31 Pulse Rate 58 L 06/06/18 14:31 Respiratory Rate 19 06/06/18 14:31 Blood Pressure 193/81 H 06/06/18 14:31 Pulse Oximetry 98 06/06/18 14:31 Medical Decision Making [facility] Narrative Medical decision making narrative: Patient is a 78-year-old female who presents with complaint of generalized weakness over the last several weeks. She denies any back pain or new numbness. She has numbness to the bilateral lower extremities in a stocking distribution which has been present for the last several years. CT of the head is unremarkable. Labs and urine are also unremarkable. I spoke with Dr. Bowden, hospitalist on-call, who agreed to admission for further evaluation and management. Medical Screen Exam Complete: Yes Emergency Medical Condition: Yes Differential Diagnosis Differential Diagnosis: Differential diagnosis includes but is not limited to deconditioning, UTI, dehydration. Medical Records Medical records reviewed: Yes I reviewed the patient's medical records. Lab Data Lab results reviewed: Yes I reviewed the patient's lab results. Result diagrams: 06/06/18 09:50 06/06/18 09:50 Lab Results 06/06/18 06/06/18 06/06/18 Range/Units 09:45 09:50 09:50 WBC 8.0 (4.0-11.0) th/mm3 RBC 4.15 (4.00-5.30) mil/mm3 Hgb 10.7 L (11.6-15.3) gm/dL Hct 33.8 L (35.0-46.0) % MCV 81.5 (80.0-100.0) fL MCH 25.8 L (27.0-34.0) pg MCHC 31.6 L (32.0-36.0) % RDW 13.1 (11.6-17.2) % Plt Count 238 (150-450) th/mm3 MPV 10.4 (7.0-11.0) fL Neut % (Auto) 58.4 (16.0-70.0) % Lymph % (Auto) 34.0 (9.0-44.0) % Logan % (Auto) 5.8 (0.0-8.0) % Eos % (Auto) 1.3 (0.0-4.0) % Baso % (Auto) 0.5 (0.0-2.0) % Neut # (Auto) 4.7 (1.8-7.7) th/mm3 Lymph # (Auto) 2.7 (1.0-4.8) th/mm3 Logan # (Auto) 0.5 (0.0-0.9) th/mm3 Eos # (Auto) 0.1 (0.0-0.4) th/mm3 Baso # (Auto) 0.0 (0.0-0.2) th/mm3 WBC Differential . Differential Comment Auto diff final Sodium 144 (136-145) meq/L Potassium 4.2 (3.5-5.1) meq/L Chloride 109 H (98-107) meq/L Carbon Dioxide 30.9 (21.0-32.0) meq/L Anion Gap 4 L (5-15) meq/L BUN 20 H (7-18) mg/dL Creatinine 0.76 (0.50-1.00) mg/dL Estimated GFR 89 (>89) mL/min POC Glucose (68-110) mg/dl Random Glucose 79 (74-106) mg/dL Calcium 8.3 L (8.5-10.1) mg/dL Magnesium 2.0 (1.5-2.5) mg/dL Total Bilirubin 0.5 (0.2-1.0) mg/dL AST 24 (15-37) U/L ALT 18 (10-53) U/L Alkaline Phosphatase 66 (45-117) U/L Troponin I Less than 0.02 L (0.02-0.05) ng/mL B-Natriuretic Peptide (0-100) pg/mL Total Protein 7.2 (6.4-8.2) g/dL Albumin 4.0 (3.4-5.0) g/dL TSH 6.740 H (0.358-3.740) uIU/mL Urine Color Yellow (Yellw/Straw) Urine Clarity Clear (Clear) Urine pH 6.0 (5.0-8.5) Ur Specific [place] 1.015 (1.002-1.035) Urine Protein Negative (Neg-Trace) mg/dL Urine Glucose (UA) Negative (Negative) mg/dL Urine Ketones Negative (Negative) mg/dL Urine Occult Blood Negative (Negative) Urine Nitrate Negative (Negative) Urine Bilirubin Negative (Negative) Urine Urobilinogen Less than 2 (Less than 2) mg/dL Ur Leukocyte Esterase Negative (Negative) Urine RBC Less than 1 (0-3) /hpf Urine WBC 1 (0-5) /hpf Ur Squamous Epith Cells <1 (0-5) /hpf Urine Mucus Few H (Occasional) /lpf Micro UA Comment Cath-culture not ind Ur Microscopic Review Not Reportable Urine Culture Comments Cath-cult not ind 06/06/18 06/06/18 06/06/18 Range/Units 09:50 11:14 12:26 WBC (4.0-11.0) th/mm3 RBC (4.00-5.30) mil/mm3 Hgb (11.6-15.3) gm/dL Hct (35.0-46.0) % MCV (80.0-100.0) fL MCH (27.0-34.0) pg MCHC (32.0-36.0) % RDW (11.6-17.2) % Plt Count (150-450) th/mm3 MPV (7.0-11.0) fL Neut % (Auto) (16.0-70.0) % Lymph % (Auto) (9.0-44.0) % Logan % (Auto) (0.0-8.0) % Eos % (Auto) (0.0-4.0) % Baso % (Auto) (0.0-2.0) % Neut # (Auto) (1.8-7.7) th/mm3 Lymph # (Auto) (1.0-4.8) th/mm3 Logan # (Auto) (0.0-0.9) th/mm3 Eos # (Auto) (0.0-0.4) th/mm3 Baso # (Auto) (0.0-0.2) th/mm3 WBC Differential Differential Comment Sodium (136-145) meq/L Potassium (3.5-5.1) meq/L Chloride (98-107) meq/L Carbon Dioxide (21.0-32.0) meq/L Anion Gap (5-15) meq/L BUN (7-18) mg/dL Creatinine (0.50-1.00) mg/dL Estimated GFR (>89) mL/min POC Glucose 69 89 (68-110) mg/dl Random Glucose (74-106) mg/dL Calcium (8.5-10.1) mg/dL Magnesium (1.5-2.5) mg/dL Total Bilirubin (0.2-1.0) mg/dL AST (15-37) U/L ALT (10-53) U/L Alkaline Phosphatase (45-117) U/L Troponin I (0.02-0.05) ng/mL B-Natriuretic Peptide 47 (0-100) pg/mL Total Protein (6.4-8.2) g/dL Albumin (3.4-5.0) g/dL TSH (0.358-3.740) uIU/mL Urine Color (Yellw/Straw) Urine Clarity (Clear) Urine pH (5.0-8.5) Ur Specific [place] (1.002-1.035) Urine Protein (Neg-Trace) mg/dL Urine Glucose (UA) (Negative) mg/dL Urine Ketones (Negative) mg/dL Urine Occult Blood (Negative) Urine Nitrate (Negative) Urine Bilirubin (Negative) Urine Urobilinogen (Less than 2) mg/dL Ur Leukocyte Esterase (Negative) Urine RBC (0-3) /hpf Urine WBC (0-5) /hpf Ur Squamous Epith Cells (0-5) /hpf Urine Mucus (Occasional) /lpf Micro UA Comment Ur Microscopic Review Urine Culture Comments Imaging Data Attestation: I personally reviewed and interpreted this imaging study as follows : Radiologist's impression: Chest X-Ray 06/06/18 09:45 CONCLUSION: The lungs are clear. Head CT 06/06/18 09:45 CONCLUSION: 1. Negative CT Head non contrast. 2. No evidence of acute infarct, hemorrhage, mass or edema. . ECG Data EKG Prior to Arrival: No Attestation: I personally reviewed and interpreted this ECG as follows: (Sinus rhythm at a rate of [address] or T wave changes.) Discharge Plan Discharge Disposition Patient Disposition: ED Admit(ED Internal Use Only) Discharge Condition Condition: Stable Discharge Order Discharge Orders: ED Use Only Admit Order (Routine); Ordered 06/06/18 Ordered By: Stacia Schmidt Discharge Details Diagnosis: Generalized weakness Physicians Team ED Provider: Stacia Schmidt Primary Care Provider: UNKNOWN, Attending Provider: Anthony Bowden Status ED Status: Admitted Patient
[2018-06-06 10:22] LABS: Alanine Aminotransferase 18 U/L (10-53); Anion Gap 4 meq/L (5-15); Aspartate Aminotransferase 24 U/L (15-37); Blood Urea Nitrogen 20 mg/dL (7-18); Calcium 8.3 mg/dL (8.5-10.1); Carbon Dioxide 30.9 meq/L (21.0-32.0); Chloride 109 meq/L (98-107); Glomerular Filtration Rate 89 mL/min (>89); Glucose,Random 79 mg/dL (74-106); Sodium 144 meq/L (136-145)
[2018-06-06 10:24] LABS: Potassium 4.2 meq/L (3.5-5.1)
[2018-06-06 10:28] LABS: Alkaline Phosphatase 66 U/L (45-117); Total Protein 7.2 g/dL (6.4-8.2)
[2018-06-06 10:29] LABS: Bilirubin,Urine Negative (Negative); Clarity,Urine Clear (Clear); Color,Urine Yellow (Yellw/Straw); Glucose,Urine (UA) Negative (Negative); Leukocyte Esterase,Urine Negative (Negative); Mucus,Urine Few /lpf (Occasional); Nitrite,Urine Negative (Negative); Specific Gravity,Urine 1.015 (1.002-1.035); Squamous Epithelial Cell,Urine <1 /hpf (0-5)
--- NOTE | 2018-06-06 10:57 | XR ---
EXAM DATE: 06/06/2018 10:52 AM EST AGE/SEX: 78 years / Female INDICATIONS: . Cardiac Disease. Patient states no chest complaints. Patient states her legs and feet are hurting and she doesn't have much feeling in them and has been falling. CLINICAL DATA: This is the patient's initial encounter. Patient reports that signs and symptoms have been present for 1 day and indicates a pain score of 0/10. MEDICAL/SURGICAL HISTORY: . Cerebrovascular disease. Hypertension. Diabetes. None. COMPARISON: [facility] [place] SINGLE AP, 10/17/2016. . FINDINGS: AP and lateral views of the chest demonstrate moderate cardiomegaly, similar to 2017. The lungs are s ymmetrically aerated and clear. The central bronchopulmonary markings of both hemidiaphragms well del ineated. Stable degenerative changes in both shoulders and thoracic spine with stable left thoracolum bar scoliosis. CONCLUSION: The lungs are clear. Electronically signed by: Ry Marin MD Board Certified Radiologist 06/06/2018 10:56 AM EST
--- NOTE | 2018-06-06 11:42 | CT ---
EXAM DATE: 06/06/2018 11:16 AM EST AGE/SEX: 78 years / Female INDICATIONS: Patient complains of weakness. CLINICAL DATA: This is the patient's initial encounter. Patient reports that signs and symptoms have been present for 1 day and indicates a pain score of 0/10. MEDICAL/SURGICAL HISTORY: Diabetes. None. RADIATION DOSE: 42.33 CTDI (mGy) COMPARISON: [facility] [place]RAIN [place]/O [place]AST, 10/17/2016. . TECHNIQUE: CT of the head without contrast. Using automated exposure control and adjustment of the mA and/or kV according to patient size, radiation dose was kept as low as reasonably achievable to ob tain optimal diagnostic quality images. DICOM format image data is available electronically for revi ew and comparison. FINDINGS: Cerebrum: The ventricles are normal for age. No evidence of midline shift, mass lesion, hemorrhage or acute infarction. No extraaxial fluid collections are seen. Posterior Fossa: The cerebellum and brainstem are intact. The 4th ventricle is midline. The cerebe llopontine angle is unremarkable. Extracranial: The visualized portion of the orbits is intact. Skull: The calvaria is intact. No evidence of skull fracture. CONCLUSION: 1. Negative CT Head non contrast. 2. No evidence of acute infarct, hemorrhage, mass or edema. . Electronically signed by: Ben Mccollum MD Board Certified Radiologist 06/06/2018 11:41 AM EST
--- NOTE | 2018-06-06 15:38 | P.HPIM ---
History of Present Illness Primary Care Physician: UNKNOWN History of Present Illness: 78-year-old female with a history of type 2 diabetes and spinal stenosis presents to the ER following 2 months of progressive weakness of her bilateral legs and frequent falls. She has a history of bilateral neuropathy, uncertain if this is related to diabetes or spinal stenosis. She was told by orthopedic surgery in the past that her back would require a back surgery. She denies having any imaging recently of her back. She complains of incontinence of the bladder and recent history of constipation. She has been a diabetic for 20 years. Other pertinent history may include that she had a bowel obstruction with partial small bowel resection. She was worked up in the ER and has no urinary tract infection. She denies any recent fevers or upper respiratory symptoms. She denies any cardiac conditions. She denies diarrhea, nausea, vomiting. Inpatient Certification Inpatient Certification: I certify that the inpatient services were ordered in accordance with Medicare regulations governing the order. This includes certification that hospital inpatient services are reasonable and necessary and in the case of services not specified as inpatient-only under 42 CFR 419.22(n), that they are appropriately provided as inpatient services in accordance to with the 2-midnight benchmark under 43 CFR 412.3(e) Estimated Total Length of Stay (Days): 4 Plans for Post Hospital Care: SNF Review of Systems Review of Systems: all other systems reviewed are negative [facility] Medical History Medical History Diabetes (Acute) HBP (high blood pressure) (Acute) History of urinary infection (Acute) Family History Family History Other Hypertension Social History Social History Substance History: No History of Abuse Second Hand Smoke Exposure: No Smoking Status: Never smoker How Often Do You Have a Drink Containing Alcohol: Never Recent Travel in [place] within the Last 8 Weeks: No Recent Out of Country Travel within the Last 8 Weeks: No Immunization History Tetanus Immunization: >5 Years Medications and Allergies Allergies Allergy/AdvReac Type Severity Reaction Status Date / Time cyclobenzaprine Allergy Severe GASTRIC Unverified 01/26/17 21:02 BURNING naproxen Allergy Severe GASTRIC Unverified 01/26/17 21:02 BURNING Sulfa (Sulfonamide AdvReac Unknown Nausea/Vomi Unverified 01/26/17 21:02 Antibiotics) ting *MDRO Multi-Drug Resistant AdvReac Unknown Hives Uncoded 06/06/18 09:34 Organism Home Medications Medication Instructions Recorded Confirmed Type glipizide-metformin 1 tab PO TID 06/06/18 06/06/18 History hydrochlorothiazide 25 mg PO DAILY 06/06/18 06/06/18 History lisinopril 20 mg PO DAILY 06/06/18 06/06/18 History naproxen [Naprosyn] 500 mg PO BID 06/06/18 06/06/18 History Active Medications: Active Medications Acetaminophen (Tylenol) 650 mg PO Q4H PRN PRN Reason: Temp > 100.4 Al Hydroxide/Mg Hydroxide (Milk Of Ermias Lijamari) 30 ml PO Q12H PRN PRN Reason: Mild Constipation Ondansetron HCl (Zofran Inj) 4 mg IV.PUSH Q6H PRN PRN Reason: NAUSEA OR VOMITING Sodium Chloride (Ns Flush) 2 ml IV.FLUSH BID DESIREE Sodium Chloride (Ns Flush) 2 ml IV.FLUSH PRN PRN PRN Reason: FLUSH AFTER USING IV ACCESS Physical Exam Vital signs: Vital Signs 06/06/18 09:36 06/06/18 09:45 06/06/18 11:06 Temperature 98.9 F 98.5 F Pulse Rate 65 67 62 Respiratory Rate 19 16 Blood Pressure 186/84 H 198/81 H Pulse Oximetry 100 99 100 06/06/18 12:34 06/06/18 14:31 Temperature 97.9 F 98.1 F Pulse Rate 65 58 L Respiratory Rate 19 19 Blood Pressure 192/78 H 193/81 H Pulse Oximetry 95 98 Intake & Output 06/05/18 06/06/18 06/06/18 18:59 06:59 18:59 Weight 72.575 kg Narrative: GENERAL: AAOx3, no acute distress, adequate nutrition, generally weak SKIN: Warm and dry, no rashes. HEAD: Atraumatic. Normocephalic. EYES: Pupils equal, round, reactive to light. No scleral icterus. No injection or drainage. ENT: No nasal bleeding or discharge. Moist mucous membranes. Nonerythematous oropharynx. NECK: Trachea midline. No JVD. Thyroid size within normal limits. CARDIOVASCULAR: Regular rate and rhythm. No murmur, no gallops, no rubs. RESPIRATORY: Clear and equal to auscultation bilaterally. No crackles, no wheezes. No accessory muscle use. GASTROINTESTINAL: Abdomen soft, non-tender, nondistended, normal active bowel sounds. Hepatic and splenic margins not palpable. MUSCULOSKELETAL: Extremities without clubbing or cyanosis. No obvious deformities. No edema. NEUROLOGICAL: Awake and alert. No obvious cranial nerve deficits. Motor grossly within normal limits. No focal deficits. 5/5 strength in bilateral arms , 4/5 strength in bilateral lower extremities.. Normal speech. PSYCHIATRIC: Appropriate mood and affect; insight and judgment normal. Urinary Catheter Management Straight: Cath placed during this visit: yes, but has since been removed by the nurse Reason for continuing: Not indwelling catheter Insertion date: 06/06/18 Insertion time: 09:45 Removal date: 06/06/18 Removal time: 09:46 Results Labs CBC & Chem 7: 06/06/18 09:50 06/06/18 09:50 Imaging Impressions Chest X-Ray 06/06/18 09:45 CONCLUSION: The lungs are clear. Head CT 06/06/18 09:45 CONCLUSION: 1. Negative CT Head non contrast. 2. No evidence of acute infarct, hemorrhage, mass or edema. . Caprini VTE Risk Assessment Caprini VTE Risk Assessment: Moderate/High Risk (score >= 2) Caprini Risk Assessment Model: Point Value = 1 Point Value = 2 Point Value = 3 Point Value = 5 Age 41-60 Minor surgery BMI > 25 kg/m2 Swollen legs Varicose veins or History of unexplained or recurrent spontaneous Oral contraceptives or hormone replacement Sepsis (< 1 month) Serious lung disease, including pneumonia (< 1 month) Abnormal pulmonary function Acute myocardial infarction Congestive heart failure (< 1 month) History of inflammatory bowel disease Medical patient at bed rest Age 61-74 Arthroscopic surgery Major open surgery (> 45 min) Laparoscopic surgery (> 45 min) Malignancy Confined to bed (> 72 hours) Immobilizing plaster cast Central venous access Age >= 75 History of VTE Family history of VTE Factor V Leiden Prothrombin [id number] Lupus anticoagulant Anticardiolipin antibodies Elevated serum homocysteine Heparin-induced thrombocytopenia Other congenital or acquired thrombophilia Stroke (< 1 month) Elective arthroplasty Hip, pelvis, or leg fracture Acute spinal cord injury (< 1 month) Prophylaxis Regimen: Total Risk Factor Score Risk Level Prophylaxis Regimen 0-1 Low Early ambulation 2 Moderate Order ONE of the following: *Sequential Compression Device (SCD) *Heparin 5000 units SQ BID 3-4 Higher Order ONE of the following medications: *Heparin 5000 units SQ TID *Enoxaparin/Lovenox 40 mg SQ daily (WT < 150 kg, CrCl > 30 mL/min) *Enoxaparin/Lovenox 30 mg SQ daily (WT < 150 kg, CrCl > 10-29 mL/min) *Enoxaparin/Lovenox 30 mg SQ BID (WT < 150 kg, CrCl > 30 mL/min) AND/OR *Sequential Compression Device (SCD) 5 or more Highest Order ONE of the following medications: *Heparin 5000 units SQ TID (Preferred with Epidurals) *Enoxaparin/Lovenox 40 mg SQ daily (WT < 150 kg, CrCl > 30 mL/min) *Enoxaparin/Lovenox 30 mg SQ daily (WT < 150 kg, CrCl > 10-29 mL/min) *Enoxaparin/Lovenox 30 mg SQ BID (WT < 150 kg, CrCl > 30 mL/min) AND *Sequential Compression Device (SCD) Assessment and Plan Plan Inability to ambulate, frequent falls 2 months of progressive worsening of chronic weakness of bilateral legs She has a history of neuropathy, also a history of spinal stenosis She was offered lumbar surgery in the past by orthopedic surgery MRI of lumbar spine to investigate for stenosis Hip/pelvic pain Following falls, she does not think that her hips are broken X-ray of bilateral hips, x-ray of pelvis Type 2 diabetes Accu-Cheks with sliding scale insulin coverage Diabetic diet h/o small bowel resection Check for vitamin B12 and folic acid levels Hypothyroidism TSH is slightly elevated Start on levothyroxine h/o hypertension Continue home dose lisinopril DVT Prophylaxis Heparin
--- NOTE | 2018-06-06 17:37 | XR ---
EXAM DATE: 06/06/2018 5:33 PM EST AGE/SEX: 78 years / Female INDICATIONS: Bilateral joint pain. No known injuries. CLINICAL DATA: This is the patient's initial encounter. Patient reports that signs and symptoms have been present for 3 months and indicates a pain score of 5/10. MEDICAL/SURGICAL HISTORY: . Cerebrovascular disease. Hypertension. Diabetes. None. COMPARISON: No prior exams available for comparison. FINDINGS: Examination of the pelvis demonstrates no evidence of fracture or dislocation. Bony mineralization i s normal. The hips are symmetric and intact in appearance. There are multiple calcified phleboliths i n the pelvis. There is no widening of the sacroiliac joints. No foreign body is identified. CONCLUSION: The hips are symmetric and intact. Electronically signed by: Joshua Stewart MD Board Certified Radiologist 06/06/2018 5:36 PM EST
--- NOTE | 2018-06-06 17:38 | XR ---
EXAM DATE: 06/06/2018 5:35 PM EST AGE/SEX: 78 years / Female INDICATIONS: Left hip pain. No known injuries. CLINICAL DATA: This is the patient's subsequent encounter. Patient reports that signs and symptoms h ave been present for 3 months and indicates a pain score of 6/10. MEDICAL/SURGICAL HISTORY: . Cerebrovascular disease. Hypertension. Diabetes. None. COMPARISON: No prior exams available for comparison. FINDINGS: Bony structures are intact and in normal alignment. Joints are intact without dislocation or signifi cant arthropathy. Osseous density is normal. Soft tissues are unremarkable. No radiopaque foreign bodies seen. CONCLUSION: Left hip is intact with no degenerative change identified. Electronically signed by: Joshua Stewart MD Board Certified Radiologist 06/06/2018 5:37 PM EST
--- NOTE | 2018-06-06 17:41 | XR ---
EXAM DATE: 06/06/2018 5:37 PM EST AGE/SEX: 78 years / Female INDICATIONS: Right hip pain. No known injuries. CLINICAL DATA: This is the patient's initial encounter. Patient reports that signs and symptoms have been present for 3 months and indicates a pain score of 5/10. MEDICAL/SURGICAL HISTORY: . Cerebrovascular disease. Hypertension. Diabetes. None. COMPARISON: [facility] – [place], PELVIS AP 1V, 06/06/2018. . FINDINGS: The cortical margins of the femoral head and neck are maintained. The bony acetabulum is intact. The primary trabecular pattern is intact. There are 2 faint lucencies, one projected over the superior fe moral neck and the other vertically oriented in the intertrochanteric region, only seen on the fronta l view. These are of uncertain significance. No radiopaque foreign bodies. CONCLUSION: 2 thin linear lucencies projected over the intratrochanteric region and superior femoral neck of unce rtain significance but raises the possibility of trabecular fractures. May consider further evaluatio n with MRI to include STIR sequences. Electronically signed by: Ry Marin MD Board Certified Radiologist 06/06/2018 5:40 PM EST
[2018-06-06] MEDS: Heparin - SQ 10,000 UNITS/ML Vial SQ SCH (20:04)
--- NOTE | 2018-06-06 20:54 | ECG ---
Date Performed: 06/06/2018 Time Performed: 10:04:22 PTAGE: 78 years EKG: Sinus rhythm Compared to previous tracing, the criteria for the possible anterior wall infarct have resolved and the tracing is now within normal limits NORMAL ECG PREVIOUS TRACING : 08/10/2016 13.35 DOCTOR: Ambreen Khan Interpretating Date/Time 06/06/2018 20:53:04
[2018-06-07] MEDS: Levothyroxine 75 MCG Tablet PO SCH (05:19)
[2018-06-07] MEDS: Heparin - SQ 10,000 UNITS/ML Vial SQ SCH ×2 (05:20→16:51)
[2018-06-07 07:12] LABS: Baso % (Auto) 0.4 % (0.0-2.0); Eos # (Auto) 0.1 th/mm3 (0.0-0.4); Eos % (Auto) 1.5 % (0.0-4.0); Hematocrit 33.7 % (35.0-46.0); Hemoglobin 10.5 gm/dL (11.6-15.3); Lymph # (Auto) 2.6 th/mm3 (1.0-4.8); Mean Corpuscular HGB Conc 31.2 % (32.0-36.0); Mean Corpuscular Hemoglobin 25.3 pg (27.0-34.0); Mean Platelet Volume 10.5 fL (7.0-11.0); Mono # (Auto) 0.5 th/mm3 (0.0-0.9); Neut # (Auto) 3.4 th/mm3 (1.8-7.7); Neut % (Auto) 52.1 % (16.0-70.0); Platelet Count 223 th/mm3 (150-450); Red Blood Count 4.16 mil/mm3 (4.00-5.30); Red Cell Distribution Width 13.2 % (11.6-17.2); White Blood Count 6.6 th/mm3 (4.0-11.0)
[2018-06-07 07:23] LABS: Albumin 3.6 g/dL (3.4-5.0); Anion Gap 5 meq/L (5-15); Aspartate Aminotransferase 11 U/L (15-37); Blood Urea Nitrogen 16 mg/dL (7-18); Calcium 8.8 mg/dL (8.5-10.1); Carbon Dioxide 32.3 meq/L (21.0-32.0); Chloride 107 meq/L (98-107); Glomerular Filtration Rate Greater Than 89 mL/min (>89); Glucose,Random 111 mg/dL (74-106); Potassium 3.6 meq/L (3.5-5.1); Sodium 144 meq/L (136-145)
[2018-06-07 07:50] LABS: Alanine Aminotransferase 16 U/L (10-53); Alkaline Phosphatase 62 U/L (45-117); T4 (Thyroxine) 7.8 mcg/dL (4.8-13.9); Total Protein 6.7 g/dL (6.4-8.2); Triiodothyronine (T3) Free 2.56 pg/mL (2.18-3.98); Vitamin B12 492 pg/mL (193-986)
[2018-06-07] MEDS: Lisinopril 20 MG Tablet PO SCH (08:34)
--- NOTE | 2018-06-07 13:13 | P.PNIM ---
Subjective Interval history: 78-year-old female admitted following a fall at home, frequent falls prior. She has lower extremity weakness and is unable to ambulate, also complains of right hip pain. She reports that she was able to use a walker to get to the bathroom last night on her own. I explained to her that she has some possible hairline fractures in the right hip and she should not be walking at all until we investigate further with MRI. Physical Exam Vital signs: Vital Signs 06/06/18 14:31 06/06/18 16:00 06/06/18 20:24 Temperature 98.1 F 97.3 F L 98.7 F Pulse Rate 58 L 68 60 Respiratory Rate 19 18 17 Blood Pressure 193/81 H 148/76 H 182/77 H Pulse Oximetry 98 99 95 06/06/18 23:15 06/07/18 03:30 06/07/18 08:00 Temperature 98.9 F 98.6 F 98.1 F Pulse Rate 58 L 63 67 Respiratory Rate 17 17 18 Blood Pressure 138/70 151/72 H 197/81 H Pulse Oximetry 100 97 95 06/07/18 12:00 Temperature 98.0 F Pulse Rate 73 Respiratory Rate 18 Blood Pressure 170/77 H Pulse Oximetry 96 Intake & Output 06/06/18 06/07/18 06/07/18 18:59 06:59 18:59 Weight 72.575 kg 74.6 kg Other: # Voids 4 Date of Last Bowel Movement 06/04/17 06/04/17 Urinary Catheter Management Straight: Cath placed during this visit: yes, but has since been removed by the nurse Reason for continuing: Not indwelling catheter Insertion date: 06/06/18 Insertion time: 09:45 Removal date: 06/06/18 Removal time: 09:46 Results Labs CBC & Chem 7: 06/07/18 05:44 06/07/18 05:44 Imaging Imaging: Impressions Hip X-Ray 06/06/18 00:00 CONCLUSION: 2 thin linear lucencies projected over the intratrochanteric region and superior femoral neck of uncertain significance but raises the possibility of trabecular fractures. May consider further evaluation with MRI to include STIR sequences. Hip X-Ray 06/06/18 00:00 CONCLUSION: Left hip is intact with no degenerative change identified. Pelvis X-Ray 06/06/18 00:00 CONCLUSION: The hips are symmetric and intact. Assessment and Plan Plan Inability to ambulate, frequent falls 2 months of progressive worsening of chronic weakness of bilateral legs She has a history of neuropathy, also a history of spinal stenosis She was offered lumbar surgery in the past by orthopedic surgery MRI of lumbar spine pending, delayed due to MRI being broken currently Hip/pelvic pain X-ray of right hip shows 2 lines of lucency, suspicious for hairline fracture, MRI recommended MRI of right hip is pending Type 2 diabetes Accu-Cheks with sliding scale insulin coverage Diabetic diet h/o small bowel resection Vitamin B12 and folic acid are within normal limits Hypothyroidism TSH is slightly elevated Start on levothyroxine h/o hypertension Continue home dose lisinopril DVT Prophylaxis Heparin Progress Note: Quality VTE Deep Vein Thrombosis/Pulmonary Embolism Present on Admission: No
[2018-06-07] MEDS ORDERED: Dextrose 50% in Water 50 ML Vial IV.PUSH PRN (13:54)
[2018-06-07] MEDS: Insulin NovoLOG Aspart Correctional Sugar Inj SQ SCH ×2 (17:10→20:09)
--- NOTE | 2018-06-07 18:46 | MR ---
EXAM DATE: 06/07/2018 6:30 PM EST AGE/SEX: 78 years / Female INDICATIONS: . Low back, and left hip pain. CLINICAL DATA: This is the patient's initial encounter. Patient reports that signs and symptoms have been present for 2 days and indicates a pain score of 5/10. MEDICAL/SURGICAL HISTORY: Hypertension. Diabetes mellitus type II. Arthritis. Cholecystectomy . Hysterectomy. COMPARISON: No prior exams available for comparison. TECHNIQUE: Multiplanar, multisequence MRI of the lumbar spine was performed without contrast. Patie nt was scanned in a sitting position; neutral, flexion, and extension scans were performed in the sa gittal plane. FINDINGS: Vertebra: Homogeneous signal. Normal alignment. There is a mild scoliosis. Discs: There is diffuse disc desiccation. There is mild disc space narrowing at the L4-5 and L5-S1 le vels. On the far sagittal images there is narrowing of the neural foramina bilaterally at the L3-4 an d L4-5 levels. Conus: There is a grade 1 anterospondylolisthesis of L4 on L5 of approximately 6 mm. There is a mild grade 1 anterior spondylolisthesis of L3 on L4 of approximately 4 mm. T12-L1: There is a mild annular disc bulge with minimal flattening of the anterior thecal sac and no focal protrusion. The neural foramina are patent. There are mild degenerative changes involving the facet joints. L1-L2: There is a mild annular disc bulge with minimal flattening of the anterior thecal sac and no focal protrusion. The neural foramina are patent. There are mild degenerative changes involving the facet joints. L2-L3: There is a mild to moderate disc bulge with flattening of the anterior thecal sac and no foc al protrusion. There is narrowing of the neural foramina left greater than right. There are degenerat nancy change involving the facet joints with hypertrophy of the ligamentum flavum and mild central luisana l stenosis. The residual AP diameter of the canal measures approximately 8 mm. L3-L4: Grade 1 anterior spondylolisthesis again noted with annular disc bulge with flattening of th e anterior thecal sac and narrowing of the neural foramina bilaterally. There is borderline foraminal stenosis. There are degenerative changes involving the facet joints with moderate central canal sten osis noted. The residual AP diameter of the canal measures approximately 6 to 7 mm. L4-L5: Grade 1 anterior spondylolisthesis with diffuse annular disc bulge with flattening of the an terior thecal sac and narrowing of the neural foramina. There is bilateral foraminal stenosis. There is moderate degenerative change involving the facet joints with hypertrophy of the ligamentum flavum and severe central canal stenosis. The residual AP diameter of the canal measures approximately 4 to 5 mm in size. L5-S1: Degenerative disc change with mild disc osteophyte complex with minimal flattening of the an terior thecal sac and mild narrowing of the neural foramina. There are degenerative change involving the facet joints. The right facet joint appears partially fused. CONCLUSION: 1. Severe central canal stenosis at L4-5 secondary to grade 1 anterospondylolisthesis degenerative c hange involving the facets. 2. Moderate central canal stenosis at L3-4 secondary to grade 1 anterospondylolisthesis, disc bulge and degenerative change involving the facet joints. 3. Bilateral foraminal stenosis at L4-5 and borderline foraminal stenosis at L3-4. 4. Mild central canal stenosis at L2-3. Electronically signed by: Joshua Stewart MD Board Certified Radiologist 06/07/2018 6:44 PM EST
--- NOTE | 2018-06-07 18:58 | MR ---
EXAM DATE: 06/07/2018 6:42 PM EST AGE/SEX: 78 years / Female INDICATIONS: . Low back, and left hip pain. Abnormal plain film exam with 2 thin linear lucencies projected over the intertrochanteric region raising the question of possible trabecular fractures. S darion stenosis in the lumbar spine seen on MRI. CLINICAL DATA: This is the patient's initial encounter. Patient reports that signs and symptoms have been present for 2 days and indicates a pain score of 5/10. MEDICAL/SURGICAL HISTORY: Arthritis. Diabetes mellitus type II. Hypertension. Hysterectomy. Cholecystectomy. COMPARISON: [facility], HIP LEFT 2V, 06/06/2018. [facility], HIP RIGHT 2V, 06/06/2018. . TECHNIQUE: Multiplanar, multisequence MRI examination was performed without contrast. FINDINGS: Bone Marrow: There is homogeneous signal in the marrow of the proximal femora and pelvis. There is m inimal subchondral marrow edema along the right acetabulum. The femoral head demonstrates normal neris ow signal.. The femoral heads are normal in contour. No evidence of osteonecrosis or fracture. Effusion: None. Acetabular Labrum: Normal shape without evidence of tear. Bursa: No evidence of trochanteric or iliopsoas bursitis. Articular Cartilage: There is mild cartilage thinning and minimal degenerative change. Muscles and Tendons: No evidence of tear or strain in the muscles groups about the hip. The tendons about the hip are intact. Other Soft Tissues: No evidence of soft tissue mass. CONCLUSION: 1. Normal marrow signal in the right intertrochanteric region with no fracture. 2. Minimal degenerative change in the hips. Electronically signed by: Joshua Stewart MD Board Certified Radiologist 06/07/2018 6:56 PM EST
[2018-06-07] MEDS: Acetaminophen 325 MG Tablet PO PRN (19:29)
[2018-06-08] MEDS: Heparin - SQ 10,000 UNITS/ML Vial SQ SCH ×2 (05:56→18:27)
[2018-06-08] MEDS: Levothyroxine 75 MCG Tablet PO SCH (05:57)
[2018-06-08] MEDS: Insulin NovoLOG Aspart Correctional Sugar Inj SQ SCH ×4 (08:41→21:04)
[2018-06-08] MEDS: Lisinopril 20 MG Tablet PO SCH ×2 (09:29→17:16)
--- NOTE | 2018-06-08 12:12 | P.PNIM ---
Subjective Interval history: Patient was pleased to learn that MRI did not show a fracture in her right hip. The MRI of her lumbar spine did show severe stenosis and as previously discussed if that is the case we need a surgical opinion from neurosurgery. Patient is happy to be finding some reasons for her symptoms. Physical Exam Vital signs: Vital Signs 06/07/18 16:00 06/07/18 19:06 06/07/18 23:58 Temperature 98.1 F 97.3 F L 97.6 F Pulse Rate 75 69 62 Respiratory Rate 18 17 16 Blood Pressure 132/60 138/61 154/74 H Pulse Oximetry 97 100 98 06/08/18 08:00 Temperature 97.7 F Pulse Rate 65 Respiratory Rate 14 Blood Pressure 189/78 H Pulse Oximetry 96 Intake & Output 06/07/18 06/08/18 06/08/18 18:59 06:59 18:59 Intake Total 540 / 540 Balance 540 / 540 Weight 86.7 kg Intake: Oral 540 / 540 Other: # Voids 3 4 Date of Last Bowel Movement 06/04/17 06/07/18 06/07/18 # Bowel Movements 3 Weight On Admission 74.6 kg Narrative: GENERAL: AAOx3, no acute distress, adequate nutrition, generally weak SKIN: Warm and dry, no rashes. HEAD: Atraumatic. Normocephalic. EYES: Pupils equal, round, reactive to light. No scleral icterus. No injection or drainage. ENT: No nasal bleeding or discharge. Moist mucous membranes. Nonerythematous oropharynx. NECK: Trachea midline. No JVD. Thyroid size within normal limits. CARDIOVASCULAR: Regular rate and rhythm. No murmur, no gallops, no rubs. RESPIRATORY: Clear and equal to auscultation bilaterally. No crackles, no wheezes. No accessory muscle use. GASTROINTESTINAL: Abdomen soft, non-tender, nondistended, normal active bowel sounds. Hepatic and splenic margins not palpable. MUSCULOSKELETAL: Extremities without clubbing or cyanosis. No obvious deformities. No edema. NEUROLOGICAL: Awake and alert. No obvious cranial nerve deficits. Motor grossly within normal limits. No focal deficits. 5/5 strength in bilateral arms , 4/5 strength in bilateral lower extremities.. Normal speech. PSYCHIATRIC: Appropriate mood and affect; insight and judgment normal. Urinary Catheter Management Straight: Cath placed during this visit: yes, but has since been removed by the nurse Reason for continuing: Not indwelling catheter Insertion date: 06/06/18 Insertion time: 09:45 Removal date: 06/06/18 Removal time: 09:46 Results Labs CBC & Chem 7: 06/07/18 05:44 06/07/18 05:44 Imaging Imaging: Impressions Hip MRI 06/07/18 00:00 CONCLUSION: 1. Normal marrow signal in the right intertrochanteric region with no fracture. 2. Minimal degenerative change in the hips. Lumbar Spine MRI 06/07/18 00:00 CONCLUSION: 1. Severe central canal stenosis at L4-5 secondary to grade 1 anterospondylolisthesis degenerative change involving the facets. 2. Moderate central canal stenosis at L3-4 secondary to grade 1 anterospondylolisthesis, disc bulge and degenerative change involving the facet joints. 3. Bilateral foraminal stenosis at L4-5 and borderline foraminal stenosis at L3 -4. 4. Mild central canal stenosis at L2-3. Assessment and Plan Plan Inability to ambulate, frequent falls 2 months of progressive worsening of chronic weakness of bilateral legs She has a history of neuropathy, also a history of spinal stenosis She was offered lumbar surgery in the past by orthopedic surgery MRI of lumbar spine shows severe central canal stenosis at L4-5 secondary to grade 1 anterospondylolisthesis Neurosurgery consulted Hip/pelvic pain MRI shows no fracture and right hip Type 2 diabetes Accu-Cheks with sliding scale insulin coverage Diabetic diet h/o small bowel resection Vitamin B12 and folic acid are within normal limits Hypothyroidism TSH is slightly elevated Start on levothyroxine h/o hypertension Continue home dose lisinopril DVT Prophylaxis Heparin Progress Note: Quality VTE Deep Vein Thrombosis/Pulmonary Embolism Present on Admission: No
[2018-06-08 12:51] LABS: Hemoglobin A1c 6.1 % (4.3-6.0)
--- NOTE | 2018-06-08 14:36 | P.CONNS ---
History of Present Illness Service: Neurosurgery Consult date: 06/08/18 Requesting Physician: Anthony Bowden Reason for Consult: Lumbar spinal stenosis, s/p multiple falls Primary Care Provider: UNKNOWN History of Present Illness: I was asked by Dr. Bowden to see and evaluate this 78-year-old female, who presented to [place] ED with complaints of generalized weakness, worsening over the last several weeks with urinary frequency. She reportedly has progressed in weakness and is unable to walk on her own anymore. She denies focal weakness as well as bowel/bladder dysfunction although initially on admission, there was a certain concern for urinary incontinence. Review of Systems All other systems reviewed negative except as stated in HPI PMFSH - History History Provided By: Patient, Medical Record - Medical History Medical History: Medical History (Last Reviewed 06/08/18 @ 14:27 by Charlie Leon MD) Diabetes HBP (high blood pressure) History of urinary infection - Family History Family History: Family History (Last Reviewed 06/08/18 @ 14:27 by Charlie Leon MD) Other Hypertension - Tobacco History Second Hand Smoke Exposure: No Smoking Status: Never smoker - Alcohol History How Often Do You Have a Drink Containing Alcohol: Never - Substance Use History Substance History: No History of Abuse - Travel History Recent Travel in the [place] Within the Last 8 Weeks: No Recent Travel Out of the Country Within the Last 8 Weeks: No - Immunization History Tetanus Immunization: >5 Years Hx Influenza Vaccine This Season: Yes Medications and Allergies Active Medications: Active Medications Acetaminophen (Tylenol) 650 mg PO Q4H PRN PRN Reason: Temp > 100.4 Last Admin: 06/07/18 19:29 Dose: 650 mg Al Hydroxide/Mg Hydroxide (Milk Of Ermias Liq) 30 ml PO Q12H PRN PRN Reason: Mild Constipation Last Admin: 06/08/18 13:02 Dose: 30 ml Clonidine HCl (Catapres) 0.1 mg PO Q6H PRN PRN Reason: SYS BP GREATER THAN 160 MMHG Last Admin: 06/07/18 14:23 Dose: 0.1 mg Dextrose (D50w Vial) 50 ml IV.PUSH UNSCH PRN PRN Reason: PER HYPOGLYCEMIA PROTOCOL Glucagon (Glucagon Inj) 1 mg OTHER PRN PRN PRN Reason: for Hypoglycemia Protocol Heparin Sodium (Porcine) (Heparin Inj) 5,000 units SQ Q12H DESIREE Last Admin: 06/08/18 05:56 Dose: 5,000 units Insulin Aspart (Novolog Insulin Correctional Sugar Inj) 0 unit SQ ACHS [facility]; Protocol Last Admin: 06/08/18 13:04 Dose: 1 unit Levothyroxine Sodium (Synthroid) 75 mcg PO DAILY@0600 [facility] Last Admin: 06/08/18 05:57 Dose: 75 mcg Lisinopril (Prinivil) 20 mg PO DAILY [facility] Last Admin: 06/08/18 09:29 Dose: 20 mg Ondansetron HCl (Zofran Inj) 4 mg IV.PUSH Q6H PRN PRN Reason: NAUSEA OR VOMITING Sodium Chloride (Ns Flush) 2 ml IV.FLUSH BID [facility] Last Admin: 06/08/18 13:05 Dose: 2 ml Sodium Chloride (Ns Flush) 2 ml IV.FLUSH PRN PRN PRN Reason: FLUSH AFTER USING IV ACCESS Allergies Allergy/AdvReac Type Severity Reaction Status Date / Time cyclobenzaprine Allergy Severe GASTRIC Verified 06/07/18 19:20 BURNING naproxen Allergy Severe GASTRIC Verified 06/07/18 19:20 BURNING Sulfa (Sulfonamide AdvReac Unknown Nausea/Vomi Verified 06/07/18 19:20 Antibiotics) ting *MDRO Multi-Drug Resistant AdvReac Unknown Hives Uncoded 06/06/18 09:34 Organism Home Medications Medication Instructions Recorded Confirmed Type glipizide-metformin 1 tab PO TID 06/06/18 06/06/18 History hydrochlorothiazide 25 mg PO DAILY 06/06/18 06/06/18 History lisinopril 20 mg PO DAILY 06/06/18 06/06/18 History naproxen [Naprosyn] 500 mg PO BID 06/06/18 06/06/18 History Exam Vital signs: Vital Signs 06/07/18 16:00 06/07/18 19:06 06/07/18 23:58 Temperature 98.1 F 97.3 F L 97.6 F Pulse Rate 75 69 62 Respiratory Rate 18 17 16 Blood Pressure 132/60 138/61 154/74 H Pulse Oximetry 97 100 98 06/08/18 08:00 06/08/18 12:00 Temperature 97.7 F 97.8 F Pulse Rate 65 71 Respiratory Rate 14 16 Blood Pressure 189/78 H 170/76 H Pulse Oximetry 96 98 Intake & Output 06/07/18 06/08/18 06/08/18 18:59 06:59 18:59 Intake Total 540 / 540 Balance 540 / 540 Weight 86.7 kg Intake: Oral 540 / 540 Other: # Voids 3 4 Date of Last Bowel Movement 06/04/17 06/07/18 06/07/18 # Bowel Movements 3 Weight On Admission 74.6 kg - Constitutional no acute distress, cooperative - Routine HEENT Exam Head: Present: normocephalic, atraumatic Eye: Present: EOMI, PERRL, normal accommodation ENT: Present: mucous membranes moist, oropharynx clear - Routine Neck Exam Present: supple, full ROM, trachea midline - Routine Respiratory Exam Present: CTA bilaterally - Routine Cardiovascular Exam Present: RRR - Routine Abdominal Exam Present: soft, normoactive bowel sounds - Routine Extremities Exam Present: full ROM, pulses intact, normal capillary refill - Routine Back/Spine/Pelvis Exam Back/Spine: Present: full ROM, muscle spasm - Routine Skin Exam Present: intact, warm, normal turgor - Routine Neurological Exam Mental Status: AAOx3 Speech: fluent CNII-XII: intact Motor BUE 5/5, R+L, neg.drift BLE: Iliopsoas 5/5 Quads 5/5 AT 5-/5 EHL 5/5 Sensory : decreased LT, Decreased PP below the kness in "stocking" distribution Intermittently, feels "pins and Bevier" sensations. Cerebellum: WNL Gait: slow shuffling with walker - Detailed Neurological Exam: Coma Scale Eye Opening: Spontaneous Verbal Response: Oriented Motor Response: Obey commands Delphine Coma Scale Total: 15 - Routine Psychiatric Exam Present: normal affect, normal thought process, cooperative Results - Laboratory Findings CBC and BMP: 06/07/18 05:44 06/07/18 05:44 Abnormal lab findings: Abnormal Labs 06/06/18 06/06/18 06/06/18 09:45 09:50 09:50 Hgb 10.7 L Hct 33.8 L MCH 25.8 L MCHC 31.6 L Chloride 109 H Carbon Dioxide Anion Gap 4 L BUN 20 H POC Glucose Random Glucose Hemoglobin A1c Calcium 8.3 L AST Troponin I Less than 0.02 L Folate TSH 6.740 H Urine Mucus Few H 06/06/18 06/07/18 06/07/18 22:28 05:44 05:44 Hgb 10.5 L Hct 33.7 L MCH 25.3 L MCHC 31.2 L Chloride Carbon Dioxide 32.3 H Anion Gap BUN POC Glucose 116 H Random Glucose 111 H Hemoglobin A1c Calcium AST 11 L Troponin I Folate Greater than 20.0 H TSH 6.910 H Urine Mucus 06/07/18 06/07/18 06/07/18 05:44 08:12 16:51 Hgb Hct MCH MCHC Chloride Carbon Dioxide Anion Gap BUN POC Glucose 123 H 208 H Random Glucose Hemoglobin A1c 6.1 H Calcium AST Troponin I Folate TSH Urine Mucus 06/07/18 06/08/18 06/08/18 19:27 08:13 12:00 Hgb Hct MCH MCHC Chloride Carbon Dioxide Anion Gap BUN POC Glucose 161 H 141 H 162 H Random Glucose Hemoglobin A1c Calcium AST Troponin I Folate TSH Urine Mucus - Diagnostic Findings EKG: report reviewed, image reviewed Chest x-ray: report reviewed, image reviewed Additional findings: Head CT, Lumbar spine MRI bilateral hip x-rays were all reviewed. Assessment and Plan - Plan 78 yr. old female with generalized BLE weakness and "stocking" distribution numbness as well as history of Diabetes L-Spine MRI shows severe central canal stenosis at L4/5 and marked stenosis at L3/4, both with Gr.I anterolisthesis. On exam, patient has baseline neuropathy c/w Diabetic origin When she ambulates more than a few feet around her room , she describes her legs as becoming progressively which improves somewhat with leaning forward. Classic" shopping cart" type sign most c/w Neurogenic claudication. At the time of my examination she denies any bowel/bladder dysfunction and in fact, had just used the bathroom facilities without evidence of incontinence Recc: L-spine Xray series including flex/ext views to r/o instability. EMG/NCS of BLE to confirm longstanding diabetic neuropathy. Dexa scan to evaluate bone quality Will reassess with results for L3/4, L4/5 decompression and fusion. Will need medical clearance Will follow
[2018-06-08] MEDS ORDERED: Bisacodyl 10 MG Supp RECTAL ONE (16:00)
--- NOTE | 2018-06-08 16:42 | XR ---
EXAM DATE: 06/08/2018 4:38 PM EST AGE/SEX: 78 years / Female INDICATIONS: Patient has back and hip pain. CLINICAL DATA: This is the patient's initial encounter. Patient reports that signs and symptoms have been present for 3 months and indicates a pain score of 10/10. MEDICAL/SURGICAL HISTORY: . Arthritis. Diabetes mellitus type II. Hypertension. Hysterectomy. C holecystectomy. . COMPARISON: [facility] [place], LUMBAR SPINE FLX/EXT ONLY, 06/08/2018. . FINDINGS: AP, lateral and oblique views of the lumbar spine were obtained and demonstrate 5 nonrib-bearing lumb ar type vertebra with mild scoliosis. There are mild degenerative disc changes with disc space narrow ing and hypertrophic change greatest at the L4-5 and L5-S1 levels. There is a grade 1 anterospondylol isthesis of L4 on L5 of approximately 10 mm. Degenerative changes also noted involving the lower face t joints with sclerosis and narrowing. There is diffuse osteopenia with no acute fracture. The sacrum is intact. CONCLUSION: 1. Grade 1 anterior spondylolisthesis of L4 on L5. 2. Degenerative disc change greatest at the L4-5 and L5-S1 levels. 3. Osteopenia, mild scoliosis and degenerative joint changes involving the lower facets. Electronically signed by: Joshua Stewart MD Board Certified Radiologist 06/08/2018 4:41 PM EST
--- NOTE | 2018-06-08 16:45 | XR ---
EXAM DATE: 06/08/2018 4:36 PM EST AGE/SEX: 78 years / Female INDICATIONS: Patient has lower back pain and hip pain. Patient has severe central canal stenosis see n on lumbar spine MRI as well as spondylolisthesis. CLINICAL DATA: This is the patient's initial encounter. Patient reports that signs and symptoms have been present for 2 months and indicates a pain score of 10/10. MEDICAL/SURGICAL HISTORY: . Arthritis. Diabetes mellitus type II. Hypertension. Hysterectomy. C holecystectomy. . COMPARISON: No prior exams available for comparison. FINDINGS: Flexion and extension views of the spine were performed. Again noted is a grade 1 anterior spondyloli sthesis of L4 on L5. This measures approximately 8 to 9 mm there is no significant change with the fl exion-extension views. There is a mild scoliosis in the patient is slightly rotated. Degenerative dis c changes again noted at the L4-5 and L5-S1 levels. There are degenerative joint changes involving th e lower facet joints. CONCLUSION: 1 anterospondylolisthesis of L4 and L5 with no definite abnormal mobility identified on the flexion-e xtension views. Electronically signed by: Joshua Stewart MD Board Certified Radiologist 06/08/2018 4:44 PM EST
[2018-06-08] MEDS: Senna/Docusate Sodium 8.6/50 MG Tablet PO SCH (21:05)
[2018-06-09] MEDS: Acetaminophen 325 MG Tablet PO PRN (02:27)
[2018-06-09] MEDS ORDERED: Ketorolac Inj 30 MG/ML (IVP) Vial IV.PUSH ONE (05:54)
[2018-06-09] MEDS: Heparin - SQ 10,000 UNITS/ML Vial SQ SCH ×2 (06:04→18:05)
[2018-06-09] MEDS: Levothyroxine 75 MCG Tablet PO SCH (06:04)
[2018-06-09] MEDS: Insulin NovoLOG Aspart Correctional Sugar Inj SQ SCH ×4 (09:56→21:32)
[2018-06-09] MEDS: Senna/Docusate Sodium 8.6/50 MG Tablet PO SCH ×2 (09:57→21:32)
[2018-06-09] MEDS: Lisinopril 20 MG Tablet PO SCH (09:57)
--- NOTE | 2018-06-09 11:22 | P.PNNS ---
Subjective Interval history: no changes to neurological complaints <Sandi Garcia - Last Filed: 06/09/18 11:12> Physical Exam Vital signs: Vital Signs 06/08/18 12:00 06/08/18 16:00 06/08/18 19:05 Temperature 97.8 F 98.3 F 97.3 F L Pulse Rate 71 74 82 Respiratory Rate 16 16 18 Blood Pressure 170/76 H 171/85 H 158/70 H Pulse Oximetry 98 99 99 06/09/18 00:45 06/09/18 08:00 Temperature 97.5 F L 97.8 F Pulse Rate 60 60 Respiratory Rate 18 17 Blood Pressure 120/76 185/74 H Pulse Oximetry 100 100 Intake & Output 06/08/18 06/09/18 06/09/18 18:59 06:59 18:59 Intake Total 960 / 960 260 / 260 Balance 960 / 960 260 / 260 Weight 86.7 kg Intake: Oral 960 / 960 260 / 260 Other: # Voids 5 3 Date of Last Bowel Movement 06/07/18 06/08/18 06/08/18 # Bowel Movements 2 Narrative: Awake, Alert Sitting on edge of bed feeding herself breakfast normal speech CNII-XII: intact Motor BUE 5/5, R+L, neg.drift BLE: Iliopsoas 5/5 Quads 5/5 AT 5-/5 EHL 5/5 Sensory : decreased LT, Decreased PP below the knees in "stocking" distribution Intermittently, feels "pins and [place]" sensations. - Urinary Catheter Management Straight Cath placed during this visit: yes, but has since been removed by the nurse Reason for continuing: Not indwelling catheter Insertion date: 06/06/18 Insertion time: 09:45 Removal date: 06/06/18 Removal time: 09:46 <Sandi Garcia - Last Filed: 06/09/18 11:12> Vital signs: Vital Signs 06/08/18 19:05 06/09/18 00:45 06/09/18 08:00 Temperature 97.3 F L 97.5 F L 97.8 F Pulse Rate 82 60 60 Respiratory Rate 18 18 17 Blood Pressure 158/70 H 120/76 185/74 H Pulse Oximetry 99 100 100 06/09/18 12:00 Temperature 98.1 F Pulse Rate 69 Respiratory Rate 20 Blood Pressure 157/64 H Pulse Oximetry 99 Intake & Output 06/08/18 06/09/18 06/09/18 18:59 06:59 18:59 Intake Total 960 / 960 260 / 260 360 / 360 Balance 960 / 960 260 / 260 360 / 360 Weight 86.7 kg Intake: Oral 960 / 960 260 / 260 360 / 360 Other: # Voids 5 3 1 Date of Last Bowel Movement 06/07/18 06/08/18 06/08/18 # Bowel Movements 2 - Urinary Catheter Management Straight Cath placed during this visit: no <Charlie Leon - Last Filed: 06/09/18 16:06> Assessment and Plan - Plan 78 yr. old female with generalized BLE weakness and "stocking" distribution numbness as well as history of Diabetes L-Spine MRI shows severe central canal stenosis at L4/5 and marked stenosis at L3/4, both with Gr.I anterolisthesis. On exam, patient has baseline neuropathy c/w Diabetic origin When she ambulates more than a few feet around her room , she describes her legs as becoming progressively which improves somewhat with leaning forward. Classic" shopping cart" type sign most c/w Neurogenic claudication. At the time of my examination she denies any bowel/bladder dysfunction and in fact, had just used the bathroom facilities without evidence of incontinence Recc: L-spine Xray series including flex/ext views to r/o instability. EMG/NCS of BLE to confirm longstanding diabetic neuropathy. Dexa scan to evaluate bone quality Will reassess with results for L3/4, L4/5 decompression and fusion. Will need medical clearance Will follow 06/09/2018 flexion/extension L-spine images reviewed by neurosurgery team which showed instability EMG/NCV BLE ordered to inspector penetrant - pending may need decompression, poss stabilization- L3-4, L4-5 medical clearance for surgery will continue follow <Sandi Garcia - Last Filed: 06/09/18 11:12> - Attending Attestation I have personally seen and examined the patient, reviewed pertinent labs and imaging studies with the Neurosurgery team. I agree with Ms. Garcia's ( Neurosurgery PA), assessment as well as plan of care. <Charlie Leon - Last Filed: 06/09/18 16:06>
--- NOTE | 2018-06-09 13:15 | P.PNIM ---
Subjective Interval history: 78-year-old female reports that she had a rough night last night, did not sleep well. Her back's been hurting her all night. Physical Exam Vital signs: Vital Signs 06/08/18 16:00 06/08/18 19:05 06/09/18 00:45 Temperature 98.3 F 97.3 F L 97.5 F L Pulse Rate 74 82 60 Respiratory Rate 16 18 18 Blood Pressure 171/85 H 158/70 H 120/76 Pulse Oximetry 99 99 100 06/09/18 08:00 Temperature 97.8 F Pulse Rate 60 Respiratory Rate 17 Blood Pressure 185/74 H Pulse Oximetry 100 Intake & Output 06/08/18 06/09/18 06/09/18 18:59 06:59 18:59 Intake Total 960 / 960 260 / 260 Balance 960 / 960 260 / 260 Weight 86.7 kg Intake: Oral 960 / 960 260 / 260 Other: # Voids 5 3 Date of Last Bowel Movement 06/07/18 06/08/18 06/08/18 # Bowel Movements 2 Narrative: GENERAL: AAOx3, tired, adequate nutrition, generally weak SKIN: Warm and dry, no rashes. HEAD: Atraumatic. Normocephalic. EYES: Pupils equal, round, reactive to light. No scleral icterus. No injection or drainage. ENT: No nasal bleeding or discharge. Moist mucous membranes. Nonerythematous oropharynx. NECK: Trachea midline. No JVD. Thyroid size within normal limits. CARDIOVASCULAR: Regular rate and rhythm. No murmur, no gallops, no rubs. RESPIRATORY: Clear and equal to auscultation bilaterally. No crackles, no wheezes. No accessory muscle use. GASTROINTESTINAL: Abdomen soft, non-tender, nondistended, normal active bowel sounds. Hepatic and splenic margins not palpable. MUSCULOSKELETAL: Extremities without clubbing or cyanosis. No obvious deformities. No edema. NEUROLOGICAL: Awake and alert. No obvious cranial nerve deficits. Motor grossly within normal limits. No focal deficits. 5/5 strength in bilateral arms , 4/5 strength in bilateral lower extremities.. Normal speech. PSYCHIATRIC: Appropriate mood and affect; insight and judgment normal. Urinary Catheter Management Straight: Cath placed during this visit: yes, but has since been removed by the nurse Reason for continuing: Not indwelling catheter Insertion date: 06/06/18 Insertion time: 09:45 Removal date: 06/06/18 Removal time: 09:46 Results Labs CBC & Chem 7: 06/07/18 05:44 06/07/18 05:44 Imaging Imaging: Impressions Lumbar Spine X-Ray 06/08/18 00:00 CONCLUSION: 1 anterospondylolisthesis of L4 and L5 with no definite abnormal mobility identified on the flexion-extension views. Lumbar Spine X-Ray 06/08/18 00:00 CONCLUSION: 1. Grade 1 anterior spondylolisthesis of L4 on L5. 2. Degenerative disc change greatest at the L4-5 and L5-S1 levels. 3. Osteopenia, mild scoliosis and degenerative joint changes involving the lower facets. Assessment and Plan Plan Severe spinal stenosis with grade 1 anterior spondylolisthesis Admitted for inability to ambulate, frequent falls 2 months of progressive worsening of chronic weakness of bilateral legs She has a history of neuropathy, also a history of spinal stenosis She was offered lumbar surgery in the past by orthopedic surgery MRI of lumbar spine shows severe central canal stenosis at L4-5 secondary to grade 1 anterospondylolisthesis Neurosurgery assisting with evaluation for surgical need, EMG pending, DEXA scan unavailable as inpatient Appreciate neurosurgery consult Hip/pelvic pain MRI shows no fracture and right hip Type 2 diabetes Accu-Cheks with sliding scale insulin coverage Diabetic diet h/o small bowel resection Vitamin B12 and folic acid are within normal limits Hypothyroidism TSH is slightly elevated Start on levothyroxine h/o hypertension Continue home dose lisinopril DVT Prophylaxis Heparin Insurance Patient insurance is indicating that they will not pay for this hospitalization [id number] discussion is requested Discharge planning If patient requires surgery she will need a period of recovery followed by rehab placement If patient does not require surgery she will need rehab placement anyway due to frequent falls and inability to ambulate alone Progress Note: Quality VTE Deep Vein Thrombosis/Pulmonary Embolism Present on Admission: No
--- NOTE | 2018-06-09 14:05 | ECHRPT ---
Indication: HYPERTENSIVE HEART DISEASE CONCLUSIONS Normal left ventricular size. Mild concentric left ventricular hypertrophy. The left ventricular systolic function is normal with an estimated ejection fraction in the range of 55-60%. Trace mitral valve regurgitation. Aortic valve sclerosis is present. Trace aortic valve regurgitation. There is trace tricuspid valve regurgitation. The estimated pulmonary arterial pressure is 29.9 mmHg. Normal left ventricular size. Mild concentric left ventricular hypertrophy. BP: / HR: Rhythm: Sinus MEASUREMENTS (Male / Female) Normal Values Technical Quality:Fair 2D ECHO LV Diastolic Diameter PLAX 4.1 cm 4.2 - 5.9 / 3.9 - 5.3 cm LV Systolic Diameter PLAX 3.1 cm IVS Diastolic Thickness 1.3 cm 0.6 - 1.0 / 0.6 - 0.9 cm LVPW Diastolic Thickness 1.3 cm 0.6 - 1.0 / 0.6 - 0.9 cm LV Relative Wall Thickness 0.6 RV Internal Dim ED PLAX 1.8 cm LVOT Diameter 1.6 cm Aortic Root Diameter 2.7 cm LA Systolic Diameter LX 3.1 cm 3.0 - 4.0 / 2.7 - 3.8 cm M-MODE AV Cusp Separation MM 1.6 cm DOPPLER AV Peak Velocity 168.0 cm/s AV Peak Gradient 11.3 mmHg AV Mean Gradient 6.0 mmHg AV Velocity Time Integral 33.9 cm AI Peak Velocity 415.0 cm/s AI Peak Gradient 68.9 mmHg AI Pressure Half Time 714.0 ms LVOT Peak Velocity 117.0 cm/s LVOT Peak Gradient 5.5 mmHg LVOT Velocity Time Integral 24.3 cm AV Area Cont Eq vti 1.4 cm AV Area Cont Eq pk 1.4 cm Mitral E Point Velocity 70.1 cm/s Mitral A Point Velocity 95.8 cm/s Mitral E to A Ratio 0.7 LV E' Lateral Velocity 6.0 cm/s Mitral E to LV E' Lateral Ratio 11.6 LV E' Septal Velocity 6.8 cm/s Mitral E to LV E' Septal Ratio 10.3 TR Peak Velocity 223.0 cm/s TR Peak Gradient 19.9 mmHg Right Atrial Pressure 10.0 mmHg Pulmonary Artery Systolic Pressu 29.9 mmHg Right Ventricular Systolic Press 29.9 mmHg PV Peak Velocity 55.6 cm/s PV Peak Gradient 1.2 mmHg FINDINGS LEFT VENTRICLE Normal left ventricular size. Mild concentric left ventricular hypertrophy. The left ventricular systolic function is normal with an estimated ejection fraction in the range of 55-60%. RIGHT VENTRICLE Normal right ventricular size and systolic function. LEFT ATRIUM The left atrial size is normal. RIGHT ATRIUM The right atrial size is normal. ATRIAL SEPTUM No atrial level shunt is demonstrated by color flow Doppler interrogation. AORTA The aortic root and proximal ascending aorta are normal in size on limited imaging. MITRAL VALVE Trace mitral valve regurgitation. AORTIC VALVE Aortic valve sclerosis is present. Trace aortic valve regurgitation. TRICUSPID VALVE There is trace tricuspid valve regurgitation. The estimated pulmonary arterial pressure is 29.9 mmHg. PULMONARY VALVE The pulmonary valve is not well visualized. VESSELS The inferior vena cava is normal in size. PERICARDIUM No pericardial effusion. Richard Lr MD, FACC (Electronically Signed) Final Date:09 June 2018 14:04
--- NOTE | 2018-06-09 14:39 | ECG ---
Date Performed: 06/08/2018 Time Performed: 17:13:22 PTAGE: 78 years EKG: Sinus rhythm NORMAL ECG Since the PREVIOUS TRACING , no significant change noted PREVIOUS TRACIN06/06/2018 10.04 DOCTOR: Bob Avila Interpretating Date/Time 06/09/2018 14:36:18
--- NOTE | 2018-06-09 21:06 | P.CONREH ---
History of Present Illness Primary Care Provider: Khloe Robles is an 78-year-old [id number] female with past medical history type 2 diabetes mellitus with neuropathy and spinal stenosis admitted to [facility] 06/06/18 with a 2-month history of progressive lower extremity weakness and frequent falls. Patient was also noted to have history of bladder incontinence and recent history of constipation. MRI of the lumbar spine shows severe central canal stenosis L4-L5 secondary to grade 1 anterior spondylolisthesis degenerative changes involving the facets, moderate central canal stenosis L3-L4 secondary to grade 1 anterior spondylolisthesis, disc bulge and degenerative changes involving the facet joints, bilateral foraminal stenosis L4-L5 and borderline foraminal stenosis L3- L4, mild central canal stenosis L2-L3. Neurosurgery consult notes neurogenic claudication and decompression with possible stabilization L3-L4, L4-L5 is being considered. Review of Systems Constitutional: Reports fatigue and Reports weakness Eyes: Denies loss of vision Ears, Nose, Mouth, and Throat: Denies headache(s) and Denies sore throat Cardiovascular: Denies chest pain Respiratory: Denies cough Comments: Denies any shortness of breath at rest Gastrointestinal: Reports constipation Genitourinary: Reports urinary incontinence (Occasional) and Reports urinary urgency Musculoskeletal: Reports abnormal gait, Reports back pain, Reports muscle weakness, Reports numbness, Reports radiating pain into limb, Reports stiffness and Reports tingling Skin/Breast: Denies sores and Denies unusual bruising Neurologic: Reports tingling and Reports paresthesias Psychiatric: Denies confusion Hematologic/Lymphatic: Denies easy bruising Allergic/Immunologic: Denies throat swelling PMFSH History History Provided By: Patient and Medical Record Medical History Medical History Diabetes (Acute) HBP (high blood pressure) (Acute) History of urinary infection (Acute) Family History Family History Other Hypertension Tobacco History Second Hand Smoke Exposure: No Smoking Status: Never smoker Alcohol History How Often Do You Have a Drink Containing Alcohol: Never Substance Use History Substance History: No History of Abuse Travel History Recent Travel in the [place] Within the Last 8 Weeks: No Recent Travel Out of the Country Within the Last 8 Weeks: No Immunization History Tetanus Immunization: >5 Years Hx Influenza Vaccine This Season: Yes Medications and Allergies Allergies Allergy/AdvReac Type Severity Reaction Status Date / Time cyclobenzaprine Allergy Severe GASTRIC Verified 06/07/18 19:20 BURNING naproxen Allergy Severe GASTRIC Verified 06/07/18 19:20 BURNING Sulfa (Sulfonamide AdvReac Unknown Nausea/Vomi Verified 06/07/18 19:20 Antibiotics) ting *MDRO Multi-Drug Resistant AdvReac Unknown Hives Uncoded 06/06/18 09:34 Organism Home Medications Medication Instructions Recorded Confirmed Type glipizide-metformin 1 tab PO TID 06/06/18 06/06/18 History hydrochlorothiazide 25 mg PO DAILY 06/06/18 06/06/18 History lisinopril 20 mg PO DAILY 06/06/18 06/06/18 History naproxen [Naprosyn] 500 mg PO BID 06/06/18 06/06/18 History Active Medications: Active Medications Acetaminophen (Tylenol) 650 mg PO Q4H PRN PRN Reason: Temp > 100.4 Last Admin: 06/09/18 02:27 Dose: 650 mg Al Hydroxide/Mg Hydroxide (Milk Of Magnesia Liq) 30 ml PO Q12H PRN PRN Reason: Mild Constipation Last Admin: 06/08/18 13:02 Dose: 30 ml Clonidine HCl (Catapres) 0.1 mg PO Q6H PRN PRN Reason: SYS BP GREATER THAN 160 MMHG Last Admin: 06/09/18 18:19 Dose: 0.1 mg Dextrose (D50w Vial) 50 ml IV.PUSH UNSCH PRN PRN Reason: PER HYPOGLYCEMIA PROTOCOL Glucagon (Glucagon Inj) 1 mg OTHER PRN PRN PRN Reason: for Hypoglycemia Protocol Heparin Sodium (Porcine) (Heparin Inj) 5,000 units SQ Q12H [facility] Last Admin: 06/09/18 18:05 Dose: 5,000 units Insulin Aspart (Novolog Insulin Correctional Sugar Inj) 0 unit SQ ACHS [facility]; Protocol Last Admin: 06/09/18 18:06 Dose: 3 unit Lactulose (Lactulose Liq) 30 ml PO ONCE PRN PRN Reason: refractory constipation Last Admin: 06/08/18 17:16 Dose: 30 ml Levothyroxine Sodium (Synthroid) 75 mcg PO DAILY@0600 [facility] Last Admin: 06/09/18 06:04 Dose: 75 mcg Lisinopril (Prinivil) 40 mg PO DAILY [facility] Last Admin: 06/09/18 09:57 Dose: 40 mg Ondansetron HCl (Zofran Inj) 4 mg IV.PUSH Q6H PRN PRN Reason: NAUSEA OR VOMITING Senna/Docusate Sodium (Naomy-Colace) 2 tab PO BID [facility] Last Admin: 06/09/18 09:57 Dose: 2 tab Sodium Chloride (Ns Flush) 2 ml IV.FLUSH BID [facility] Last Admin: 06/09/18 09:57 Dose: 2 ml Sodium Chloride (Ns Flush) 2 ml IV.FLUSH PRN PRN PRN Reason: FLUSH AFTER USING IV ACCESS Exam Physical Examination Vital Signs / I&O: Vital Signs 06/09/18 00:45 06/09/18 08:00 06/09/18 12:00 Temperature 97.5 F L 97.8 F 98.1 F Pulse Rate 60 60 69 Respiratory Rate 18 17 20 Blood Pressure 120/76 185/74 H 157/64 H Pulse Oximetry 100 100 99 06/09/18 16:00 Temperature 97.7 F Pulse Rate 76 Respiratory Rate 20 Blood Pressure 190/84 H Pulse Oximetry 99 Intake & Output 06/09/18 06/09/18 06/10/18 06:59 18:59 06:59 Intake Total 260 / 260 1080 / 1080 Balance 260 / 260 1080 / 1080 Weight 86.7 kg Intake: Oral 260 / 260 1080 / 1080 Other: # Voids 3 4 Date of Last Bowel Movement 06/08/18 06/08/18 # Bowel Movements 2 Intake & Output 06/07/18 06/08/18 06/09/18 06/10/18 06:59 06:59 06:59 06:59 Intake Total 540 / 540 1220 / 1220 1080 / 1080 Balance 540 / 540 1220 / 1220 1080 / 1080 Weight 74.6 kg 86.7 kg 86.7 kg General: No acute distress Respiratory: BS equal Gastrointestinal: Positive bowel sounds, Non-distended and Non-tender Date of Last Bowel Movement: 06/08/18 Cardiovascular: Normal rate and Regular rhythm Skin: No rash Musculoskeletal: Tenderness (No calf tenderness), Swelling (None in distal lower extremities) and Deformity (Left finger flexion) Psychiatric: Cooperative and Appropriate mood & affect Neurologic Orientation: oriented to: Self, Place, Time and Situation Neurologic: Cranial nerves (Intact 2 through 12) Motor: Right Upper Extremity (5/5), Left Upper Extremity (Proximal 5/5; line camera operator 3/5 ), Right Lower Extremity (4+/5) and Left Lower Extremity (4+/5) Sensory: Impaired to light touch distal to the knees bilaterally Results Labs CBC & Chem 7: 06/10/18 05:09 06/10/18 05:09 Imaging Laboratory Results WBC 7.3 th/mm3 (4.0-11.0) 06/10/18 05:09 RBC 4.30 mil/mm3 (4.00-5.30) 06/10/18 05:09 Hgb 11.1 gm/dL (11.6-15.3) L 06/10/18 05:09 Hct 35.2 % (35.0-46.0) 06/10/18 05:09 MCV 82.1 fL (80.0-100.0) 06/10/18 05:09 MCH 25.7 pg (27.0-34.0) L 06/10/18 05:09 MCHC 31.4 % (32.0-36.0) L 06/10/18 05:09 RDW 13.2 % (11.6-17.2) 06/10/18 05:09 Plt Count 228 th/mm3 (150-450) 06/10/18 05:09 MPV 10.1 fL (7.0-11.0) 06/10/18 05:09 Neut % (Auto) 52.1 % (16.0-70.0) 06/07/18 05:44 Lymph % (Auto) 39.0 % (9.0-44.0) 06/07/18 05:44 [place] % (Auto) 7.0 % (0.0-8.0) 06/07/18 05:44 Eos % (Auto) 1.5 % (0.0-4.0) 06/07/18 05:44 Baso % (Auto) 0.4 % (0.0-2.0) 06/07/18 05:44 Neut # (Auto) 3.4 th/mm3 (1.8-7.7) 06/07/18 05:44 Lymph # (Auto) 2.6 th/mm3 (1.0-4.8) 06/07/18 05:44 [place] # (Auto) 0.5 th/mm3 (0.0-0.9) 06/07/18 05:44 Eos # (Auto) 0.1 th/mm3 (0.0-0.4) 06/07/18 05:44 Baso # (Auto) 0.0 th/mm3 (0.0-0.2) 06/07/18 05:44 WBC Differential . 06/07/18 05:44 Differential Comment Auto diff final 06/07/18 05:44 Sodium 143 meq/L (136-145) 06/10/18 05:09 Potassium 4.2 meq/L (3.5-5.1) 06/10/18 05:09 Chloride 105 meq/L (98-107) 06/10/18 05:09 Carbon Dioxide 33.2 meq/L (21.0-32.0) H 06/10/18 05:09 Anion Gap 5 meq/L (5-15) 06/10/18 05:09 BUN 22 mg/dL (7-18) H 06/10/18 05:09 Creatinine 0.75 mg/dL (0.50-1.00) 06/10/18 05:09 Estimated GFR Greater than 89 mL/min (>89) 06/10/18 05:09 POC Glucose 232 mg/dl (68-110) H 06/10/18 11:29 Random Glucose 141 mg/dL (74-106) H 06/10/18 05:09 Hemoglobin A1c 6.1 % (4.3-6.0) H 06/07/18 05:44 Calcium 9.4 mg/dL (8.5-10.1) 06/10/18 05:09 Magnesium 2.0 mg/dL (1.5-2.5) 06/06/18 09:50 Total Bilirubin 0.6 mg/dL (0.2-1.0) 06/07/18 05:44 AST 11 U/L (15-37) L 06/07/18 05:44 ALT 16 U/L (10-53) 06/07/18 05:44 Alkaline Phosphatase 62 U/L (45-117) 06/07/18 05:44 Troponin I Less than 0.02 ng/mL (0.02-0.05) L 06/06/18 09:50 B-Natriuretic Peptide 47 pg/mL (0-100) 06/06/18 09:50 Total Protein 6.7 g/dL (6.4-8.2) 06/07/18 05:44 Albumin 3.6 g/dL (3.4-5.0) 06/07/18 05:44 Vitamin B12 492 pg/mL (193-986) 06/07/18 05:44 Folate Greater than 20.0 ng/mL (3.1-17.5) H 06/07/18 05:44 TSH 6.910 uIU/mL (0.358-3.740) H 06/07/18 05:44 Thyroxine (T4) 7.8 mcg/dL (4.8-13.9) 06/07/18 05:44 Free T3 2.56 pg/mL (2.18-3.98) 06/07/18 05:44 Urine Color Yellow (Yellw/Straw) 06/06/18 09:45 Urine Clarity Clear (Clear) 06/06/18 09:45 Urine pH 6.0 (5.0-8.5) 06/06/18 09:45 Ur Specific [place] 1.015 (1.002-1.035) 06/06/18 09:45 Urine Protein Negative mg/dL (Neg-Trace) 06/06/18 09:45 Urine Glucose (UA) Negative mg/dL (Negative) 06/06/18 09:45 Urine Ketones Negative mg/dL (Negative) 06/06/18 09:45 Urine Occult Blood Negative (Negative) 06/06/18 09:45 Urine Nitrate Negative (Negative) 06/06/18 09:45 Urine Bilirubin Negative (Negative) 06/06/18 09:45 Urine Urobilinogen Less than 2 mg/dL (Less than 2) 06/06/18 09:45 Ur Leukocyte Esterase Negative (Negative) 06/06/18 09:45 Urine RBC Less than 1 /hpf (0-3) 06/06/18 09:45 Urine WBC 1 /hpf (0-5) 06/06/18 09:45 Ur Squamous Epith Cells <1 /hpf (0-5) 06/06/18 09:45 Urine Mucus Few /lpf (Occasional) H 06/06/18 09:45 Micro UA Comment Cath-culture not ind 06/06/18 09:45 Ur Microscopic Review Not Reportable 06/06/18 09:45 Urine Culture Comments Cath-cult not ind 06/06/18 09:45 Impressions Hip X-Ray 06/06/18 00:00 CONCLUSION: 2 thin linear lucencies projected over the intratrochanteric region and superior femoral neck of uncertain significance but raises the possibility of trabecular fractures. May consider further evaluation with MRI to include STIR sequences. Pelvis X-Ray 06/06/18 00:00 CONCLUSION: The hips are symmetric and intact. Chest X-Ray 06/06/18 09:45 CONCLUSION: The lungs are clear. Head CT 06/06/18 09:45 CONCLUSION: 1. Negative CT Head non contrast. 2. No evidence of acute infarct, hemorrhage, mass or edema. . Hip MRI 06/07/18 00:00 CONCLUSION: 1. Normal marrow signal in the right intertrochanteric region with no fracture. 2. Minimal degenerative change in the hips. Lumbar Spine MRI 06/07/18 00:00 CONCLUSION: 1. Severe central canal stenosis at L4-5 secondary to grade 1 anterospondylolisthesis degenerative change involving the facets. 2. Moderate central canal stenosis at L3-4 secondary to grade 1 anterospondylolisthesis, disc bulge and degenerative change involving the facet joints. 3. Bilateral foraminal stenosis at L4-5 and borderline foraminal stenosis at L3 -4. 4. Mild central canal stenosis at L2-3. Lumbar Spine X-Ray 06/08/18 00:00 CONCLUSION: 1 anterospondylolisthesis of L4 and L5 with no definite abnormal mobility identified on the flexion-extension views. Assessment and Plan (1) Spinal stenosis: Status: Acute Code(s): M48.00 - Spinal stenosis, site unspecified (2) Impaired mobility and activities of daily living: Status: Acute Code(s): Z74.09 - Other reduced mobility (3) Diabetes mellitus with neuropathy: Status: Acute Code(s): E11.40 - Type 2 diabetes mellitus with diabetic neuropathy, unspecified Plan Assessment: 1. Spinal stenosis with neurogenic claudication 2. Diabetes mellitus with possible neuropathy 3. Impaired mobility and ADLs Recommendations: 1. EMG/NCV scheduled for 06/10/18 at 0800. 2. Physical therapy is mobilizing the patient is now contact guard to ambulate 30 feet with a rolling walker. Continue close supervision for fall prevention 3. Occupational Therapy is addressing ADLs and now set up for feeding, grooming and upper body dressing and minimal assistance for lower body dressing 4. Anticipate the patient will need inpatient rehabilitation if decision is made to proceed with lumbar surgery. Case management is addressing discharge planning and has made referrals for prison facility placement 5. Will follow while hospitalized and as appropriate at discharge Thank you for this consult
[2018-06-10 05:45] LABS: Hematocrit 35.2 % (35.0-46.0); Hemoglobin 11.1 gm/dL (11.6-15.3); Mean Corpuscular HGB Conc 31.4 % (32.0-36.0); Mean Corpuscular Hemoglobin 25.7 pg (27.0-34.0); Mean Corpuscular Volume 82.1 fL (80.0-100.0); Mean Platelet Volume 10.1 fL (7.0-11.0); Platelet Count 228 th/mm3 (150-450); Red Cell Distribution Width 13.2 % (11.6-17.2); White Blood Count 7.3 th/mm3 (4.0-11.0)
[2018-06-10] MEDS: Heparin - SQ 10,000 UNITS/ML Vial SQ SCH ×2 (05:47→17:26)
[2018-06-10] MEDS: Levothyroxine 75 MCG Tablet PO SCH (05:47)
[2018-06-10] MEDS: Acetaminophen 325 MG Tablet PO PRN (05:58)
[2018-06-10 06:09] LABS: Anion Gap 5 meq/L (5-15); Blood Urea Nitrogen 22 mg/dL (7-18); Calcium 9.4 mg/dL (8.5-10.1); Carbon Dioxide 33.2 meq/L (21.0-32.0); Chloride 105 meq/L (98-107); Glomerular Filtration Rate Greater Than 89 mL/min (>89); Glucose,Random 141 mg/dL (74-106); Potassium 4.2 meq/L (3.5-5.1); Sodium 143 meq/L (136-145)
[2018-06-10] MEDS: Insulin NovoLOG Aspart Correctional Sugar Inj SQ SCH ×4 (07:34→20:09)
[2018-06-10] MEDS: Senna/Docusate Sodium 8.6/50 MG Tablet PO SCH ×2 (09:32→20:07)
[2018-06-10] MEDS: Lisinopril 20 MG Tablet PO SCH (09:32)
--- NOTE | 2018-06-10 12:32 | P.PNNS ---
Subjective Interval history: no new complaints <Sandi Garcia - Last Filed: 06/10/18 12:30> Physical Exam Vital signs: Vital Signs 06/09/18 16:00 06/09/18 21:20 06/10/18 01:54 Temperature 97.7 F 98 F 97.3 F L Pulse Rate 76 76 54 L Respiratory Rate 20 18 16 Blood Pressure 190/84 H 151/77 H 132/62 Pulse Oximetry 99 100 97 06/10/18 05:20 06/10/18 08:00 Temperature 97.5 F L 97.6 F Pulse Rate 64 58 L Respiratory Rate 16 18 Blood Pressure 144/82 H 140/61 Pulse Oximetry 98 97 Intake & Output 06/09/18 06/10/18 06/10/18 18:59 06:59 18:59 Intake Total 1080 / 1080 Balance 1080 / 1080 Weight 86.9 kg Intake: Oral 1080 / 1080 Other: # Voids 4 3 Date of Last Bowel Movement 06/08/18 06/09/18 06/09/18 Narrative: Awake, Alert Sitting on edge of bed feeding herself breakfast normal speech CNII-XII: intact Motor BUE 5/5, R+L, neg.drift BLE: Iliopsoas 5/5 Quads 5/5 AT 5-/5 EHL 5/5 Sensory : decreased LT, Decreased PP below the knees in "stocking" distribution Intermittently, feels "pins and [place]" sensations. - Urinary Catheter Management Straight Cath placed during this visit: yes, but has since been removed by the nurse Reason for continuing: Not indwelling catheter Insertion date: 06/06/18 Insertion time: 09:45 Removal date: 06/06/18 Removal time: 09:46 <Sandi Garcia - Last Filed: 06/10/18 12:30> Vital signs: Vital Signs 06/09/18 21:20 06/10/18 01:54 06/10/18 05:20 Temperature 98 F 97.3 F L 97.5 F L Pulse Rate 76 54 L 64 Respiratory Rate 18 16 16 Blood Pressure 151/77 H 132/62 144/82 H Pulse Oximetry 100 97 98 06/10/18 08:00 06/10/18 12:00 Temperature 97.6 F 97.9 F Pulse Rate 58 L 67 Respiratory Rate 18 16 Blood Pressure 140/61 135/62 Pulse Oximetry 97 98 Intake & Output 06/09/18 06/10/18 06/10/18 18:59 06:59 18:59 Intake Total 1080 / 1080 Balance 1080 / 1080 Weight 86.9 kg Intake: Oral 1080 / 1080 Other: # Voids 4 3 Date of Last Bowel Movement 06/08/18 06/09/18 06/09/18 - Urinary Catheter Management Straight Cath placed during this visit: no <Charlie Leon - Last Filed: 06/10/18 16:01> Assessment and Plan - Plan 78 yr. old female with generalized BLE weakness and "stocking" distribution numbness as well as history of Diabetes L-Spine MRI shows severe central canal stenosis at L4/5 and marked stenosis at L3/4, both with Gr.I anterolisthesis. On exam, patient has baseline neuropathy c/w Diabetic origin When she ambulates more than a few feet around her room , she describes her legs as becoming progressively which improves somewhat with leaning forward. Classic" shopping cart" type sign most c/w Neurogenic claudication. At the time of my examination she denies any bowel/bladder dysfunction and in fact, had just used the bathroom facilities without evidence of incontinence Recc: L-spine Xray series including flex/ext views to r/o instability. EMG/NCS of BLE to confirm longstanding diabetic neuropathy. Dexa scan to evaluate bone quality Will reassess with results for L3/4, L4/5 decompression and fusion. 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 Jenkins this morning, appreciate help follow up results further recommendations to follow, <Sandi Garcia - Last Filed: 06/10/18 12:30> - Attending Attestation Neuro: no change Will review EMG/NCS Will need medical clearance for surgery I have personally seen and examined the patient, reviewed pertinent labs and imaging studies with the Neurosurgery team. I agree with Ms. Garcia's ( Neurosurgery PA), assessment as well as plan of care. <Charlie Leon - Last Filed: 06/10/18 16:01>
--- NOTE | 2018-06-10 17:11 | P.PNREH ---
Subjective Interval history: Patient resting comfortably in bed. Reports lumbar back pain and difficulty with positioning in bed. Using trapezius to reposition. Review of Systems As previously documented Exam Physical Examination Vital Signs / I&O: Vital Signs 06/09/18 21:20 06/10/18 01:54 06/10/18 05:20 Temperature 98 F 97.3 F L 97.5 F L Pulse Rate 76 54 L 64 Respiratory Rate 18 16 16 Blood Pressure 151/77 H 132/62 144/82 H Pulse Oximetry 100 97 98 06/10/18 08:00 06/10/18 12:00 06/10/18 16:00 Temperature 97.6 F 97.9 F 97.7 F Pulse Rate 58 L 67 63 Respiratory Rate 18 16 18 Blood Pressure 140/61 135/62 142/62 H Pulse Oximetry 97 98 99 Intake & Output 06/09/18 06/10/18 06/10/18 18:59 06:59 18:59 Intake Total 1080 / 1080 Balance 1080 / 1080 Weight 86.9 kg Intake: Oral 1080 / 1080 Other: # Voids 4 3 Date of Last Bowel Movement 06/08/18 06/09/18 06/08/18 Intake & Output 06/08/18 06/09/18 06/10/18 06/11/18 06:59 06:59 06:59 06:59 Intake Total 540 / 540 1220 / 1220 1080 / 1080 Balance 540 / 540 1220 / 1220 1080 / 1080 Weight 86.7 kg 86.7 kg 86.9 kg Date of Last Bowel Movement: 06/08/18 Neurologic Exam Comments: Nerve Conduction Studies Anti Sensory Summary Table Site NR Peak (ms) Norm Peak (ms) P-T Amp (V) Norm P-T Amp Site1 Site2 Delta-P (ms) Dist (cm) Matt (m/s) Norm Matt (m/s) Left Sup Peron Anti Sensory (Ant Lat Mall) 14 cm NR <4.4 >5.0 14 cm Ant Lat Mall 14.0 >32 Site 2 NR Right Sup Peron Anti Sensory (Ant Lat Mall) 14 cm NR <4.4 >5.0 14 cm Ant Lat Mall 14.0 >32 Site 2 NR Left Sural Anti Sensory (Lat Mall) Calf NR <4.0 >5.0 Calf Lat Mall 14.0 >35 Site 2 NR Right Sural Anti Sensory (Lat Mall) Calf 6.6 <4.0 123.7 >5.0 Calf Lat Mall 6.6 14.0 21 >35 7.2 102.2 Motor Summary Table Site NR Onset (ms) Norm Onset (ms) O-P Amp (mV) Norm O-P Amp Site1 Site2 Delta-0 (ms) Dist (cm) Matt (m/s) Norm Matt (m/s) Left Peroneal Motor (Ext Dig Brev) Ankle 4.7 <6.1 0.2 >2.5 B Fib Ankle 9.0 30.5 34 >38 B Fib 13.7 0.2 Right Peroneal Motor (Ext Dig Brev) Ankle 5.3 <6.1 0.2 >2.5 B Fib Ankle 8.9 29.0 33 >38 B Fib 14.2 0.2 Left Tibial Motor (Abd Sotelo Brev) Ankle 6.5 <6.1 1.5 >3.0 Knee Ankle 11.2 38.5 34 >35 Knee 17.7 1.8 Right Tibial Motor (Abd Sotelo Brev) Ankle 7.9 <6.1 0.5 >3.0 Knee Ankle 13.2 41.0 31 >35 Knee 21.1 0.2 F Wave Studies NR F-Lat (ms) Lat Norm (ms) L-R F-Lat (ms) L-R Lat Norm Left Peroneal (Mrkrs) (EDB) NR <60 <5.1 Right Peroneal (Mrkrs) (EDB) 40.00 <60 <5.1 Left Tibial (Mrkrs) (Abd Hallucis) NR <61 <5.7 Right Tibial (Mrkrs) (Abd Hallucis) 40.00 <61 <5.7 EMG Side Muscle Nerve Root Ins Act Fibs Psw Amp Dur Poly Recrt Int Pat Comment Left GluteusMax InfGluteal L5-S2 Nml Nml Nml Nml Nml 0 Nml Nml Left VastusMed Femoral L2-4 Nml Nml Nml Nml Nml 0 Nml Nml Left AntTibialis Dp Br Peron L4-5 Nml Nml Nml Nml Nml 0 Nml 25% Left Peroneus Long Sup Br Peron L5-S1 Nml 1+FIBS Nml Nml Nml 0 Nml 25% Left MedGastroc Tibial S1-2 Nml Nml Nml Nml Nml 0 Nml Nml Left AbdHallucis MedPlantar S1-2 Nml 1+ FIBS Nml Nml Nml 0 Nml Nml Right GluteusMax InfGluteal L5-S2 Nml 1+ FIBS AND PSW Nml Nml Nml 0 Nml Nml Right VastusMed Femoral L2-4 Nml Nml Nml Nml Nml 0 Nml Nml Right AntTibialis Dp Br Peron L4-5 Nml 1+PSW Nml Nml Nml 0 Nml Nml Right Peroneus Long Sup Br Peron L5-S1 Nml Nml Nml Nml Nml 0 Nml Nml Right MedGastroc Tibial S1-2 Nml Nml Nml Nml Nml 0 Nml Nml Right AbdHallucis MedPlantar S1-2 Nml Nml 1+FIBS Nml Nml 0 Nml Nml 3 Side Muscle Root Insertional Activity Fibs Positive Sharp Waves 0 0 0 Left L3 paraspinal Normal None None 0 0 0 0 Left L4 paraspinal Normal None None 0 0 0 Left L5 paraspinal Normal None None 0 0 0 Right L3 paraspinal Normal None None 0 0 0 Right L4 paraspinal Normal None None 0 0 0 Right L5 paraspinal Normal None None 0 0 0 0 0 0 0 0 0 0 0 0 0 0 0 Objective Laboratory Results - last 24 hr 06/09/18 06/09/18 06/10/18 17:32 20:31 05:09 WBC 7.3 RBC 4.30 Hgb 11.1 L Hct 35.2 MCV 82.1 MCH 25.7 L MCHC 31.4 L RDW 13.2 Plt Count 228 MPV 10.1 Sodium Potassium Chloride Carbon Dioxide Anion Gap BUN Creatinine Estimated GFR POC Glucose 202 H 208 H Random Glucose Calcium 06/10/18 06/10/18 06/10/18 05:09 07:31 11:29 WBC RBC Hgb Hct MCV MCH MCHC RDW Plt Count MPV Sodium 143 Potassium 4.2 Chloride 105 Carbon Dioxide 33.2 H Anion Gap 5 BUN 22 H Creatinine 0.75 Estimated GFR Greater than 89 POC Glucose 145 H 232 H Random Glucose 141 H Calcium 9.4 Assessment and Plan (1) Spinal stenosis: Status: Acute Code(s): M48.00 - Spinal stenosis, site unspecified (2) Impaired mobility and activities of daily living: Status: Acute Code(s): Z74.09 - Other reduced mobility (3) Diabetes mellitus with neuropathy: Status: Acute Code(s): E11.40 - Type 2 diabetes mellitus with diabetic neuropathy, unspecified Plan Nerve conduction EMG testing shows: No response in sensory nerves tested including bilateral superior peroneal and bilateral sural nerves. Motor testing shows significant decrease in amplitude, prolonged distal latency and bilateral tibial motor nerves and decreased conduction velocities bilaterally. Electromyography shows denervation potentials in the right quadriceps, left tibialis posterior, right fibularis longus and bilateral abductor pollicis brevis with decreased recruitment throughout. *Findings are consistent with significant peripheral motor sensory neuropathy likely related to patient's history of diabetes mellitus. Additionally, there is nerve root irritation consistent with radiculopathy at the L4-5 level. Clinical correlation recommended.
--- NOTE | 2018-06-10 18:41 | P.PNIM ---
Subjective Interval history: 78 yo f admitted with worsening weakness and pain of bl le found to have severe spinal stenosis L4-L5, being evaluated by NS for possible intervention pt seen and examined, she states she does not have cardiac hx, no hx of angina, chf, arrhythmia, sanchez, or le edema, currently pain is fairly controlled Physical Exam Vital signs: Vital Signs 06/09/18 21:20 06/10/18 01:54 06/10/18 05:20 Temperature 98 F 97.3 F L 97.5 F L Pulse Rate 76 54 L 64 Respiratory Rate 18 16 16 Blood Pressure 151/77 H 132/62 144/82 H Pulse Oximetry 100 97 98 06/10/18 08:00 06/10/18 12:00 06/10/18 16:00 Temperature 97.6 F 97.9 F 97.7 F Pulse Rate 58 L 67 63 Respiratory Rate 18 16 18 Blood Pressure 140/61 135/62 142/62 H Pulse Oximetry 97 98 99 Intake & Output 06/09/18 06/10/18 06/10/18 18:59 06:59 18:59 Intake Total 1080 / 1080 Balance 1080 / 1080 Weight 86.9 kg Intake: Oral 1080 / 1080 Other: # Voids 4 3 Date of Last Bowel Movement 06/08/18 06/09/18 06/08/18 Narrative: wdwn 78 yo aaf aaox3 nad heart s1s2 reg lungs clear no wrr abd soft nondt pos bs ext no edema, no calf tenderness, Urinary Catheter Management Straight: Cath placed during this visit: yes, but has since been removed by the nurse Reason for continuing: Not indwelling catheter Insertion date: 06/06/18 Insertion time: 09:45 Removal date: 06/06/18 Removal time: 09:46 Results Labs CBC & Chem 7: 06/10/18 05:09 06/10/18 05:09 Imaging Imaging: echo: CONCLUSIONS Normal left ventricular size. Mild concentric left ventricular hypertrophy. The left ventricular systolic function is normal with an estimated ejection fraction in the range of 55-60%. Trace mitral valve regurgitation. Aortic valve sclerosis is present. Trace aortic valve regurgitation. There is trace tricuspid valve regurgitation. The estimated pulmonary arterial pressure is 29.9 mmHg. Normal left ventricular size. Mild concentric left ventricular hypertrophy. EKG : NSR no acute changes Assessment and Plan (1) Spinal stenosis: Code(s): M48.00 - Spinal stenosis, site unspecified Status: Acute (2) Impaired mobility and activities of daily living: Code(s): Z74.09 - Other reduced mobility Status: Acute (3) Diabetes mellitus with neuropathy: Code(s): E11.40 - Type 2 diabetes mellitus with diabetic neuropathy, unspecified Status: Acute Plan SEVERE SPINAL STENOSIS L3/4 and 4-L5 from grade I anterolisthesis with instability of LS - plan for possible decompression and stablization L3-4,L4-5 pending workup per NS - from medical standpoint patient there is no contraindication to proceeding with procedures recommended, no further cardiopulmonary testing is required, ekg and echo reviewed. FALL w R hip pain - mri confirms NO evidence of fracture R hip DMII with diabetic peripheral neuropathy - Ha1c 6.1, cont iss, diet, resume glip /met as outpt HTN - stable on lisinopril HYPOTHRYOIDISM - started on synthroid for tsh 6.9, outpt followup GAIT DYSFUNCTION due to above, will require rehab, high fall risk dvt prophylaxis - sc heparin disposition to rehab Progress Note: Quality VTE Deep Vein Thrombosis/Pulmonary Embolism Present on Admission: No
[2018-06-11] MEDS: Heparin - SQ 10,000 UNITS/ML Vial SQ SCH (05:25)
[2018-06-11] MEDS: Levothyroxine 75 MCG Tablet PO SCH (05:25)
[2018-06-11] MEDS: Insulin NovoLOG Aspart Correctional Sugar Inj SQ SCH ×4 (08:20→21:30)
[2018-06-11] MEDS: Lisinopril 20 MG Tablet PO SCH (08:20)
[2018-06-11] MEDS: Senna/Docusate Sodium 8.6/50 MG Tablet PO SCH ×2 (08:20→21:31)
[2018-06-11] MEDS ORDERED: Chlorhexidine 4% Topical 120 APPLIC/120 ML Bottle TOPICAL ONE (10:04)
--- NOTE | 2018-06-11 14:34 | P.PNNS ---
Subjective Interval history: reports no changes neurologically <Sandi Garcia - Last Filed: 06/11/18 14:39> Physical Exam Vital signs: Vital Signs 06/10/18 16:00 06/10/18 19:08 06/11/18 00:00 Temperature 97.7 F 97.3 F L Pulse Rate 63 72 60 Respiratory Rate 18 18 18 Blood Pressure 142/62 H 150/60 H 118/78 Pulse Oximetry 99 99 97 06/11/18 04:00 06/11/18 08:00 06/11/18 12:00 Temperature 97.2 F L 97.2 F L 97.9 F Pulse Rate 70 71 69 Respiratory Rate 17 18 18 Blood Pressure 139/68 145/82 H 127/75 Pulse Oximetry 99 98 100 Intake & Output 06/10/18 06/11/18 06/11/18 18:59 06:59 18:59 Intake Total 1020 / 1020 350 / 350 Balance 1020 / 1020 350 / 350 Weight 87.5 kg Intake: Oral 1020 / 1020 350 / 350 Other: # Voids 2 4 Date of Last Bowel Movement 06/08/18 06/11/18 06/10/18 # Bowel Movements 0 2 Narrative: Awake, Alert Sitting on edge of bed feeding herself breakfast normal speech CNII-XII: intact Motor BUE 5/5, R+L, neg.drift BLE: Iliopsoas 5/5 Quads 5/5 AT 5-/5 EHL 5/5 Sensory : decreased LT, Decreased PP below the knees in "stocking" distribution Intermittently, feels "pins and Stephan" sensations. - Urinary Catheter Management Straight Cath placed during this visit: yes, but has since been removed by the nurse Reason for continuing: Not indwelling catheter Insertion date: 06/06/18 Insertion time: 09:45 Removal date: 06/06/18 Removal time: 09:46 <Sandi Garcia - Last Filed: 06/11/18 14:39> Vital signs: Vital Signs 06/15/18 15:45 06/15/18 15:52 06/15/18 16:00 Temperature 98.3 F 98.3 F 98.9 F Pulse Rate 74 74 76 Respiratory Rate 18 18 18 Blood Pressure 119/54 L 119/54 L 168/72 H Pulse Oximetry 97 97 95 06/15/18 16:07 06/15/18 20:32 06/16/18 00:21 Temperature 98.9 F 99.3 F 98.8 F Pulse Rate 77 77 82 Respiratory Rate 17 18 15 Blood Pressure 128/72 154/73 H 144/66 H Pulse Oximetry 95 98 98 06/16/18 00:37 06/16/18 01:56 06/16/18 04:00 Temperature 98.7 F 98.6 F Pulse Rate 79 77 74 Respiratory Rate 16 18 Blood Pressure 164/70 H 146/67 H 131/63 Pulse Oximetry 96 98 06/16/18 08:00 06/16/18 12:00 Temperature 98.8 F 98.9 F Pulse Rate 85 85 Respiratory Rate 18 22 Blood Pressure 146/77 H 173/79 H Pulse Oximetry 97 97 Intake & Output 06/15/18 06/16/18 06/16/18 18:59 06:59 18:59 Intake Total 50 / 50 820 / 820 Output Total 2200 / 2200 Balance 50 / 50 -1380 / -1380 Weight 73.7 kg Intake: IV 50 / 50 50 / 50 NS Inj 250 ML @ 15 mls/hr IV. 50 / 50 SIG ONCE DESIREE Rx#:[id number] Oral 720 / 720 Other 50 / 50 Rbc As-3 Leukoreduced Unit 50 / 50 [id number] Intake (Blood Product) Amt 0 / 0 0 / 0 Rbc As-3 Leukoreduced Unit 0 / 0 [id number] Rbc As-3 Leukoreduced Unit 0 / 0 [id number] Output: Urine Amount (Catheter) 2200 / 2200 Straight 2200 / 2200 Other: Date of Last Bowel Movement 06/12/18 06/16/18 # Incontinent Bowel Movements 1 - Urinary Catheter Management Straight Cath placed during this visit: no <Charlie Leon - Last Filed: 06/16/18 14:44> Assessment and Plan - Plan 78 yr. old female with generalized BLE weakness and "stocking" distribution numbness as well as history of Diabetes L-Spine MRI shows severe central canal stenosis at L4/5 and marked stenosis at L3/4, both with Gr.I anterolisthesis. On exam, patient has baseline neuropathy c/w Diabetic origin When she ambulates more than a few feet around her room , she describes her legs as becoming progressively which improves somewhat with leaning forward. Classic" shopping cart" type sign most c/w Neurogenic claudication. At the time of my examination she denies any bowel/bladder dysfunction and in fact, had just used the bathroom facilities without evidence of incontinence Recc: L-spine Xray series including flex/ext views to r/o instability. EMG/NCS of BLE to confirm longstanding diabetic neuropathy. Dexa scan to evaluate bone quality Will reassess with results for L3/4, L4/5 decompression and fusion. Will need medical clearance Will follow 06/09/2018 flexion/extension L-spine images reviewed by neurosurgery team which showed instability EMG/NCV BLE ordered to musical instrument maker or repairer - pending may need decompression, poss stabilization- L3-4, L4-5 medical clearance for surgery will continue follow 06/10/2018 for EMG/NCV of BLE with Dr. Jenkins this morning, appreciate help follow up results further recommendations to follow, 06/11/2018 EMG results reviewed by neurosurgery team, treatment options were again discussed with the patient - conservative management vs surgical decompression of lumbar stenosis, patient wishes to proceed with surgery she has been cleared by medicine for surgical procedure NPO tonight after midnight, OR tomorrow for L3-4, L4-5 decompressive laminectomy and posterior fusion with Dr. Leon <Sandi Garcia - Last Filed: 06/11/18 14:39> - Attending Attestation difficult to examine but distally weak in BLE 4+/5 with obvious, significant neurogenic claudication I have personally seen and examined the patient, reviewed pertinent labs and imaging studies. I agree with Ms. Garcia's ( Neurosurgery PA), assessment as well as plan of care. <Charlie Leon - Last Filed: 06/16/18 14:44>
--- NOTE | 2018-06-11 16:25 | P.PNIM ---
Subjective Interval history: Follow-up for falls, spinal stenosis, radiculopathy: Patient seen and examined, sitting up at bedside. Low back pain. Denies any chest pain , shortness of breath. No nausea, no vomiting, no diarrhea. No acute changes overnight. Was seen by neurosurgery this morning, was told that she will need surgery. Indicates she has numbness of both legs, this is chronic. States that she was finally able to have BM yesterday, had 4. Physical Exam Vital signs: Vital Signs 06/10/18 19:08 06/11/18 00:00 06/11/18 04:00 Temperature 97.3 F L 97.2 F L Pulse Rate 72 60 70 Respiratory Rate 18 18 17 Blood Pressure 150/60 H 118/78 139/68 Pulse Oximetry 99 97 99 06/11/18 08:00 06/11/18 12:00 Temperature 97.2 F L 97.9 F Pulse Rate 71 69 Respiratory Rate 18 18 Blood Pressure 145/82 H 127/75 Pulse Oximetry 98 100 Intake & Output 06/10/18 06/11/18 06/11/18 18:59 06:59 18:59 Intake Total 1020 / 1020 350 / 350 Balance 1020 / 1020 350 / 350 Weight 87.5 kg Intake: Oral 1020 / 1020 350 / 350 Other: # Voids 2 4 Date of Last Bowel Movement 06/08/18 06/11/18 06/10/18 # Bowel Movements 0 2 Narrative: GENERAL: Well-nourished, well-developed patient in no apparent distress. SKIN: Warm and dry. HEAD: Atraumatic. Normocephalic. EYES: Pupils equal and round. No scleral icterus. No injection or drainage. ENT: No nasal bleeding or discharge. Mucous membranes pink and moist. NECK: Trachea midline. No JVD. CARDIOVASCULAR: Regular rate and rhythm. RESPIRATORY: No accessory muscle use. Clear to auscultation. Breath sounds equal bilaterally. GASTROINTESTINAL: Abdomen soft, non-tender, nondistended. Hepatic and splenic margins not palpable. MUSCULOSKELETAL: Extremities without clubbing, cyanosis, or edema. No obvious deformities. Bilateral lower extremity with distal weakness noted, 4 out of 5 left greater than right. Decreased sensation mid rojo down. Bilateral pedal pulses 2+ bilateral NEUROLOGICAL: Awake and alert. No obvious cranial nerve deficits. Weakness to both lower extremities, 4 out of 5. Decreased sensation to both feet. Shuffling gait. Speech is clear. PSYCHIATRIC: Appropriate mood and affect; insight and judgment normal. Urinary Catheter Management Straight: Cath placed during this visit: yes, but has since been removed by the nurse Reason for continuing: Not indwelling catheter Insertion date: 06/06/18 Insertion time: 09:45 Removal date: 06/06/18 Removal time: 09:46 Results Labs CBC & Chem 7: 06/10/18 05:09 06/10/18 05:09 Assessment and Plan Plan 78-year-old female with a history of type 2 diabetes and spinal stenosis presented to the ER following 2 months of progressive weakness of her bilateral legs and frequent falls. She has a history of bilateral neuropathy, uncertain if this is related to diabetes or spinal stenosis. She was told by orthopedic surgery in the past that her back would require a back surgery. She denies having any imaging recently of her back. She complains of incontinence of the bladder and recent history of constipation. She has been a diabetic for 20 years. Severe spinal stenosis, L3-L4, L4-L5 grade 1 anterolisthesis with instability of LS Radiculopathy Hx of neuropathy, spinal stenosis. Had been offered lumbar surgery in the past by orthopedic surgery -Evaluated per Dr. Jenkins, EMG studies completed-results noted -Neurosurgery following, they recommend surgery. Going to or tomorrow for L3-L4 , L4-L5 decompressive laminectomy and posterior fusion with Dr. Leon -Patient is medically stable to proceed with surgery. Had echo done, EF 55-60% . Twelve-lead EKG reviewed, sinus rhythm, no evidence of ischemia noted. -Continue with PT -Pain management -CBC, BMP, PT/INR have already been ordered, will follow up on results N.p.o. after midnight Hold heparin We will hold lisinopril postop Fall with right hip pain, MRI showed no evidence of fracture History of frequent falls with gait instability Peripheral neuropathy Continue with physical therapy -Fall precautions Type 2 diabetes Peripheral neuropathy Hemoglobin A1c 6.1 Continue diabetic diet Continue with Accu-Cheks and insulin per sliding scale Hold glipizide and metformin for now Hypothyroidism -TSH was noted elevated Started on levothyroxine -Needs to follow-up as outpatient with PCP, have repeat TSH in 6-week Hypertension Continue lisinopril, will hold post op DVT Prophylaxis-on Heparin subcu (hold today, going to surgery) Case management following, patient will need SNF Physical therapy following We will follow-up on lab result Code Status: Full code Discussed Condition With: RN, pt, CM Discharge Planning: SNF poss. 2-3 days Progress Note: Quality VTE Deep Vein Thrombosis/Pulmonary Embolism Present on Admission: No
[2018-06-11 17:01] LABS: Activated Partial Thrombo Time 26.4 sec (23.4-31.7)
[2018-06-11 17:09] LABS: Albumin 3.8 g/dL (3.4-5.0); Anion Gap 4 meq/L (5-15); Aspartate Aminotransferase 23 U/L (15-37); Blood Urea Nitrogen 19 mg/dL (7-18); Carbon Dioxide 32.6 meq/L (21.0-32.0); Chloride 104 meq/L (98-107); Glomerular Filtration Rate 69 mL/min (>89); Glucose,Random 200 mg/dL (74-106); Potassium 4.1 meq/L (3.5-5.1); Sodium 141 meq/L (136-145)
[2018-06-11 17:10] LABS: Alanine Aminotransferase 30 U/L (10-53)
[2018-06-11 17:12] LABS: Alkaline Phosphatase 70 U/L (45-117); Total Protein 7.5 g/dL (6.4-8.2)
[2018-06-11 18:54] LABS: Baso % (Auto) 0.6 % (0.0-2.0); Eos # (Auto) 0.1 th/mm3 (0.0-0.4); Eos % (Auto) 1.5 % (0.0-4.0); Hematocrit 34.8 % (35.0-46.0); Lymph # (Auto) 3.3 th/mm3 (1.0-4.8); Mean Corpuscular HGB Conc 31.5 % (32.0-36.0); Mean Corpuscular Hemoglobin 25.6 pg (27.0-34.0); Mean Corpuscular Volume 81.3 fL (80.0-100.0); Mean Platelet Volume 10.1 fL (7.0-11.0); Mono # (Auto) 0.5 th/mm3 (0.0-0.9); Mono % (Auto) 6.5 % (0.0-8.0); Neut # (Auto) 3.8 th/mm3 (1.8-7.7); Neut % (Auto) 49.4 % (16.0-70.0); Platelet Count 244 th/mm3 (150-450); Red Blood Count 4.29 mil/mm3 (4.00-5.30); Red Cell Distribution Width 13.4 % (11.6-17.2); White Blood Count 7.8 th/mm3 (4.0-11.0)
[2018-06-11] MEDS ORDERED: Chlorhexidine Gluconate 2% 1 Pack (2 Cloths) TOPICAL ONE (23:38)
[2018-06-12 05:07] LABS: Activated Partial Thrombo Time 25.6 sec (23.4-31.7); Prothrombin Time 10.1 sec (9.8-11.6)
[2018-06-12] MEDS ORDERED: Vancomycin Inj 1,000 MG in Sodium Chlor 0.9% Inj 250 ML IV.SIG SCH (06:00)
[2018-06-12] MEDS: Levothyroxine 75 MCG Tablet PO SCH (06:06)
[2018-06-12] MEDS: Insulin NovoLOG Aspart Correctional Sugar Inj SQ SCH ×5 (08:39→21:43)
[2018-06-12] MEDS ORDERED: Lidocaine 1%/Epinephrine 1:100,000 Inj 50 ML Vial ONE (09:00)
[2018-06-12] MEDS ORDERED: Gelatin Size 100 Topical Foam ONE (09:00)
[2018-06-12] MEDS ORDERED: Thrombin Topical Soln 5,000 UNIT Vial TOPICAL ONE (09:00)
[2018-06-12] MEDS ORDERED: Bupivacaine 0.5% Inj 50 ML MDV Vial ONE (09:04)
[2018-06-12] MEDS ORDERED: Famotidine PF Inj 20 MG/2 ML Vial ONE (09:25)
[2018-06-12] MEDS ORDERED: Ketamine Inj 50 MG/5 ML Syringe IV.PUSH ONE (10:03)
[2018-06-12] MEDS ORDERED: Propofol Inj 500 MG/50 ML Vial ONE ×3 (10:04→17:10)
[2018-06-12] MEDS ORDERED: Morphine Inj 4 MG/ML Vial ONE (10:04)
[2018-06-12] MEDS ORDERED: fentaNYL Citrate Inj 250 MCG/5 ML Ampul ONE (10:04)
[2018-06-12] MEDS ORDERED: HYDROmorphone PF Inj 2 MG/ML Vial ONE (10:35)
[2018-06-12] MEDS ORDERED: fentaNYL Citrate Inj 100 MCG/2 ML Ampul ONE (10:36)
[2018-06-12] MEDS ORDERED: Sugammadex Inj 200 MG/2 ML Vial IV.PUSH ONE (12:17)
--- NOTE | 2018-06-12 13:44 | P.PNIM ---
Subjective Interval history: Follow-up for falls, spinal stenosis, radiculopathy: Patient seen and examined, resting comfortably. C/O feet numb. No pain at this time. No cp, no sob. No acute changes overnight. NPO, going for surgery today. Physical Exam Vital signs: Vital Signs 06/11/18 16:00 06/11/18 19:18 06/12/18 00:00 Temperature 97.7 F 97.9 F 98.1 F Pulse Rate 72 71 69 Respiratory Rate 20 18 18 Blood Pressure 196/83 H 182/77 H 148/67 H Pulse Oximetry 97 96 99 06/12/18 04:00 06/12/18 08:00 Temperature 97.7 F 97.9 F Pulse Rate 72 62 Respiratory Rate 18 18 Blood Pressure 151/66 H 149/101 H Pulse Oximetry 99 100 Intake & Output 06/11/18 06/12/18 06/12/18 18:59 06:59 18:59 Intake Total 720 / 720 Balance 720 / 720 Weight 74.3 kg Intake: Oral 720 / 720 Other: # Voids 4 4 Date of Last Bowel Movement 06/10/18 06/11/18 # Bowel Movements 1 Narrative: GENERAL: Well-nourished, well-developed patient in no apparent distress. SKIN: Warm and dry. HEAD: Atraumatic. Normocephalic. EYES: Pupils equal and round. No scleral icterus. No injection or drainage. ENT: No nasal bleeding or discharge. Mucous membranes pink and moist. NECK: Trachea midline. No JVD. CARDIOVASCULAR: Regular rate and rhythm. RESPIRATORY: No accessory muscle use. Clear to auscultation. Breath sounds equal bilaterally. GASTROINTESTINAL: Abdomen soft, non-tender, nondistended. Hepatic and splenic margins not palpable. MUSCULOSKELETAL: Extremities without clubbing, cyanosis, or edema. No obvious deformities. Bilateral lower extremity with distal weakness noted, 4 out of 5 left greater than right. Decreased sensation mid rojo down. Bilateral pedal pulses 2+ bilateral NEUROLOGICAL: Awake and alert. No obvious cranial nerve deficits. Weakness to both lower extremities, 4 out of 5. Decreased sensation to both feet. Shuffling gait. Speech is clear. PSYCHIATRIC: Appropriate mood and affect; insight and judgment normal. Urinary Catheter Management Straight: Cath placed during this visit: yes, but has since been removed by the nurse Reason for continuing: Not indwelling catheter Insertion date: 06/06/18 Insertion time: 09:45 Removal date: 06/06/18 Removal time: 09:46 Results Labs CBC & Chem 7: 06/11/18 18:19 06/11/18 16:22 Assessment and Plan Plan 78-year-old female with a history of type 2 diabetes and spinal stenosis presented to the ER following 2 months of progressive weakness of her bilateral legs and frequent falls. She has a history of bilateral neuropathy, uncertain if this is related to diabetes or spinal stenosis. She was told by orthopedic surgery in the past that her back would require a back surgery. She denies having any imaging recently of her back. She complains of incontinence of the bladder and recent history of constipation. She has been a diabetic for 20 years. Severe spinal stenosis, L3-L4, L4-L5 grade 1 anterolisthesis with instability of LS Radiculopathy Hx of neuropathy, spinal stenosis. Had been offered lumbar surgery in the past by orthopedic surgery -Evaluated per Dr. Jenkins, EMG studies completed-results noted -Neurosurgery following, they recommend surgery. Going to or tomorrow for L3-L4 , L4-L5 decompressive laminectomy and posterior fusion with Dr. Leon -Patient is medically stable to proceed with surgery. Had echo done, EF 55-60% . Twelve-lead EKG reviewed, sinus rhythm, no evidence of ischemia noted. -Continue with PT -Pain management -Labs reviewed, stable Hold heparin We will hold lisinopril postop -going to OR today Fall with right hip pain, MRI showed no evidence of fracture History of frequent falls with gait instability Peripheral neuropathy Continue with physical therapy -Fall precautions Type 2 diabetes Peripheral neuropathy Hemoglobin A1c 6.1 Continue diabetic diet Continue with Accu-Cheks and insulin per sliding scale Hold glipizide and metformin for now Hypothyroidism -TSH was noted elevated Started on levothyroxine -Needs to follow-up as outpatient with PCP, have repeat TSH in 6-week Hypertension Continue lisinopril, will hold post op -Continue Clonidine PRN DVT Prophylaxis-on Heparin subcu (hold today, going to surgery) Case management following, has been accepted at Physical therapy following Discharge Planning: SNF poss. 1-2 days when cleared by neurosurgery Progress Note: Quality VTE Deep Vein Thrombosis/Pulmonary Embolism Present on Admission: No
[2018-06-12 13:45] LABS: ABG Base Excess 3.2 mmol/L (-2-2); ABG PCO2 31 mmHg (38-42); ABG PO2 307 mmHG (61-120)
[2018-06-12] MEDS ORDERED: Empty Container, Bottle 1 EACH, Sod Chloride 0.9% Inj 1,000 ML, Bacitracin Inj 50,000 UNIT IRRIGATION ONE ×6 (15:03→15:04)
[2018-06-12 15:17] LABS: ABG Base Excess 2.4 mmol/L (-2-2); ABG PCO2 35 mmHg (38-42); ABG PO2 295 mmHG (61-120)
[2018-06-12] MEDS ORDERED: HYDROmorphone PCA Inj 6 MG/30 ML PCA.VIAL PCA PRN (16:01)
[2018-06-12] MEDS ORDERED: Naloxone Inj 0.4 MG/ML Vial IV.PUSH PRN (16:01)
[2018-06-12 16:58] LABS: ABG Base Excess 1.1 mmol/L (-2-2); ABG PCO2 34 mmHg (38-42); ABG PO2 272 mmHG (61-120)
[2018-06-12 18:46] LABS: Baso # (Auto) 0.1 th/mm3 (0.0-0.2); Baso % (Auto) 0.5 % (0.0-2.0); Hematocrit 28.7 % (35.0-46.0); Lymph # (Auto) 2.1 th/mm3 (1.0-4.8); Lymph % (Auto) 14.1 % (9.0-44.0); Mean Corpuscular HGB Conc 31.3 % (32.0-36.0); Mean Corpuscular Hemoglobin 25.5 pg (27.0-34.0); Mean Corpuscular Volume 81.4 fL (80.0-100.0); Mean Platelet Volume 10.4 fL (7.0-11.0); Mono # (Auto) 0.8 th/mm3 (0.0-0.9); Mono % (Auto) 5.5 % (0.0-8.0); Neut # (Auto) 11.7 th/mm3 (1.8-7.7); Neut % (Auto) 79.9 % (16.0-70.0); Platelet Count 216 th/mm3 (150-450); Red Blood Count 3.53 mil/mm3 (4.00-5.30); Red Cell Distribution Width 13.4 % (11.6-17.2); White Blood Count 14.7 th/mm3 (4.0-11.0)
[2018-06-12] MEDS: Senna/Docusate Sodium 8.6/50 MG Tablet PO SCH ×2 (18:49→22:09)
--- NOTE | 2018-06-12 19:03 | XR ---
EXAM DATE: 06/12/2018 7:00 PM EST AGE/SEX: 78 years / Female INDICATIONS: Fusion of L3-L5 done in the operating room. CLINICAL DATA: This is the patient's initial encounter. Patient reports that signs and symptoms have been present for 1 day and indicates a pain score of Nonresponsive. MEDICAL/SURGICAL HISTORY: . Arthritis. Diabetes mellitus type II. Hypertension. . Hysterectom y. Cholecystectomy. . COMPARISON: No prior exams available for comparison. FINDINGS: Limited 2 projection examination of the low lumbar spine reveals posterior hardware fusion from L3 to L5. The hardware is intact and well-positioned. There is slight anterolisthesis of L3 relative to L4 and of L4 relative to L5. Wide bony decompression of the posterior canal is noted. CONCLUSION: Satisfactory operative appearance Electronically signed by: Justice Mills MD Board Certified Radiologist 06/12/2018 7:02 PM EST
[2018-06-12] MEDS ORDERED: *HYDROmorphone PF Inj 1 MG/ML Ampul PERIprocedural Use ONLY ONE (19:13)
[2018-06-12 19:21] LABS: Anion Gap 9 meq/L (5-15); Blood Urea Nitrogen 15 mg/dL (7-18); Calcium 8.2 mg/dL (8.5-10.1); Carbon Dioxide 28.3 meq/L (21.0-32.0); Chloride 105 meq/L (98-107); Glomerular Filtration Rate Greater Than 89 mL/min (>89); Glucose,Random 200 mg/dL (74-106); Potassium 3.9 meq/L (3.5-5.1); Sodium 142 meq/L (136-145)
[2018-06-12] MEDS: ceFAZolin 2 GM Premix Inj 2 GM/50 ML PIGGYBACK IV.SIG SCH (22:29)
[2018-06-13] MEDS: ceFAZolin 2 GM Premix Inj 2 GM/50 ML PIGGYBACK IV.SIG SCH ×2 (04:32→13:32)
[2018-06-13] MEDS: Levothyroxine 75 MCG Tablet PO SCH (05:25)
[2018-06-13 06:46] LABS: Calcium 7.8 mg/dL (8.5-10.1); Carbon Dioxide 29.3 meq/L (21.0-32.0); Potassium 4.4 meq/L (3.5-5.1)
[2018-06-13 07:31] LABS: Hematocrit 27.7 % (35.0-46.0); Hemoglobin 8.3 gm/dL (11.6-15.3); Mean Corpuscular Hemoglobin 25.6 pg (27.0-34.0); Mean Corpuscular Volume 85.8 fL (80.0-100.0); Red Blood Count 3.23 mil/mm3 (4.00-5.30); Red Cell Distribution Width 13.7 % (11.6-17.2); White Blood Count 14.5 th/mm3 (4.0-11.0)
[2018-06-13 07:32] LABS: Baso # (Auto) 0.1 th/mm3 (0.0-0.2); Baso % (Auto) 0.6 % (0.0-2.0); Eos % (Auto) 0.1 % (0.0-4.0); Lymph # (Auto) 1.6 th/mm3 (1.0-4.8); Lymph % (Auto) 11.3 % (9.0-44.0); Mean Corpuscular HGB Conc 29.9 % (32.0-36.0); Mean Platelet Volume 10.7 fL (7.0-11.0); Mono # (Auto) 0.9 th/mm3 (0.0-0.9); Mono % (Auto) 6.3 % (0.0-8.0); Neut # (Auto) 11.9 th/mm3 (1.8-7.7); Neut % (Auto) 81.7 % (16.0-70.0); Platelet Count 205 th/mm3 (150-450)
[2018-06-13] MEDS: Senna/Docusate Sodium 8.6/50 MG Tablet PO SCH ×2 (09:40→21:57)
[2018-06-13] MEDS ORDERED: Morphine Sulfate Inj 2 MG/ML Vial IV.PUSH PRN (10:25)
--- NOTE | 2018-06-13 12:55 | P.PNNS ---
Subjective Interval history: complains of surgical pain, and bilateral knee pain <Sandi Garcia - Last Filed: 06/13/18 13:04> Physical Exam Vital signs: Vital Signs 06/12/18 18:05 06/12/18 18:15 06/12/18 18:30 Temperature 98.2 F Pulse Rate 87 80 79 Respiratory Rate 15 24 26 H Blood Pressure 127/61 134/55 L 131/60 Pulse Oximetry 100 100 100 06/12/18 18:45 06/12/18 19:00 06/12/18 19:15 Temperature Pulse Rate 80 80 77 Respiratory Rate 20 20 15 Blood Pressure 164/70 H 149/69 H 159/67 H Pulse Oximetry 100 99 100 06/12/18 20:12 06/12/18 20:38 06/12/18 20:40 Temperature 98.0 F 98.0 F Pulse Rate 80 75 Respiratory Rate 14 17 17 Blood Pressure 144/65 H 157/66 H Pulse Oximetry 100 100 06/12/18 23:19 06/12/18 23:50 06/13/18 03:33 Temperature 97.8 F 98.1 F Pulse Rate 63 64 Respiratory Rate 17 18 17 Blood Pressure 129/70 137/59 L Pulse Oximetry 98 97 06/13/18 08:00 06/13/18 11:45 Temperature 98.6 F 97.8 F Pulse Rate 65 86 Respiratory Rate 18 18 Blood Pressure 126/57 L 148/67 H Pulse Oximetry 100 94 L Intake & Output 06/12/18 06/13/18 06/13/18 18:59 06:59 18:59 Intake Total 2650 / 2650 1100 / 1100 Output Total 1400 / 1400 825 / 825 Balance 1250 / 1250 275 / 275 Weight 75.3 kg Intake: IV 250 / 250 1100 / 1100 NS + KCl 20 mEq Inj 1,000 ML @ 1000 / 1000 100 mls/hr IV.CONT .Q10H [facility] Rx #:[id number] Vancomycin Inj 1,000 MG In NS 250 / 250 Inj 250 ML @ 250 mls/hr IV.SIG PROMOTIONS ASSOCIATE [facility] Rx#:[id number] Ancef 2 GM Premix Inj 2 gm In 100 / 100 50 ml @ 100 mls/hr IV.SIG Q8H [facility] Rx#:[id number] Anesthesia Amount 2400 / 2400 Output: Estimated Blood Loss 450 / 450 Urine Amount (Catheter) 950 / 950 775 / 775 Indwelling Urethral Catheter 950 / 950 775 / 775 Wound Drainage 50 / 50 # 1 Right 50 / 50 Other: Date of Last Bowel Movement 06/12/18 # Bowel Movements 1 Narrative: awake, mildly groggy conversing and following commands pupils are equal facial motor symmetric slow in speech Motor LEs 2-3/5 throughout dressing with small area of drainage, lumbar drain in place with serosanguineous drainage - Urinary Catheter Management Straight Cath placed during this visit: yes, but has since been removed by the nurse Reason for continuing: Not indwelling catheter Insertion date: 06/06/18 Insertion time: 09:45 Removal date: 06/06/18 Removal time: 09:46 Indwelling Urethral Catheter Cath placed during this visit: yes Reason for continuing: Hourly intake/output Insertion date: 06/12/18 Insertion time: 11:30 <Sandi Garcia - Last Filed: 06/13/18 13:04> Vital signs: Vital Signs 06/15/18 15:45 06/15/18 15:52 06/15/18 16:00 Temperature 98.3 F 98.3 F 98.9 F Pulse Rate 74 74 76 Respiratory Rate 18 18 18 Blood Pressure 119/54 L 119/54 L 168/72 H Pulse Oximetry 97 97 95 06/15/18 16:07 06/15/18 20:32 06/16/18 00:21 Temperature 98.9 F 99.3 F 98.8 F Pulse Rate 77 77 82 Respiratory Rate 17 18 15 Blood Pressure 128/72 154/73 H 144/66 H Pulse Oximetry 95 98 98 06/16/18 00:37 06/16/18 01:56 06/16/18 04:00 Temperature 98.7 F 98.6 F Pulse Rate 79 77 74 Respiratory Rate 16 18 Blood Pressure 164/70 H 146/67 H 131/63 Pulse Oximetry 96 98 06/16/18 08:00 06/16/18 12:00 Temperature 98.8 F 98.9 F Pulse Rate 85 85 Respiratory Rate 18 22 Blood Pressure 146/77 H 173/79 H Pulse Oximetry 97 97 Intake & Output 06/15/18 06/16/18 06/16/18 18:59 06:59 18:59 Intake Total 50 / 50 820 / 820 Output Total 2200 / 2200 Balance 50 / 50 -1380 / -1380 Weight 73.7 kg Intake: IV 50 / 50 50 / 50 NS Inj 250 ML @ 15 mls/hr IV. 50 / 50 SIG ONCE [facility] Rx#:[id number] Oral 720 / 720 Other 50 / 50 Rbc As-3 Leukoreduced Unit 50 / 50 [id number] Intake (Blood Product) Amt 0 / 0 0 / 0 Rbc As-3 Leukoreduced Unit 0 / 0 [id number] Rbc As-3 Leukoreduced Unit 0 / 0 [id number] Output: Urine Amount (Catheter) 2199 Straight 2199 Other: Date of Last Bowel Movement 06/12/18 06/16/18 # Incontinent Bowel Movements 1 - Urinary Catheter Management Straight Cath placed during this visit: no Indwelling Urethral Catheter Cath placed during this visit: no <Charlie Leon - Last Filed: 06/16/18 14:54> Assessment and Plan - Plan 78 yr. old female with generalized BLE weakness and "stocking" distribution numbness as well as history of Diabetes L-Spine MRI shows severe central canal stenosis at L4/5 and marked stenosis at L3/4, both with Gr.I anterolisthesis. On exam, patient has baseline neuropathy c/w Diabetic origin When she ambulates more than a few feet around her room , she describes her legs as becoming progressively which improves somewhat with leaning forward. Classic" shopping cart" type sign most c/w Neurogenic claudication. At the time of my examination she denies any bowel/bladder dysfunction and in fact, had just used the bathroom facilities without evidence of incontinence Recc: L-spine Xray series including flex/ext views to r/o instability. EMG/NCS of BLE to confirm longstanding diabetic neuropathy. Dexa scan to evaluate bone quality Will reassess with results for L3/4, L4/5 decompression and fusion. Will need medical clearance Will follow 06/09/2018 flexion/extension L-spine images reviewed by neurosurgery team which showed instability EMG/NCV BLE ordered to president celebrity acquistion - pending may need decompression, poss stabilization- L3-4, L4-5 medical clearance for surgery will continue follow 06/10/2018 for EMG/NCV of BLE with Dr. Jenkins this morning, appreciate help follow up results further recommendations to follow, 06/11/2018 EMG results reviewed by neurosurgery team, treatment options were again discussed with the patient - conservative management vs surgical decompression of lumbar stenosis, patient wishes to proceed with surgery she has been cleared by medicine for surgical procedure NPO tonight after midnight, OR tomorrow for L3-4, L4-5 decompressive laminectomy and posterior fusion with Dr. Leon 06/13/2018 POD #1 s/p L3-4, L4-5 decompressive laminectomy with posterior fixation using transpedicular screws and rods dc Dilauded [employer]ATOR, cont [place] and IV Morphine PRN f/u CT Lumbar spine today, cont lumbar draining change surgical dressing tomorrow PT, mobilize out of bed today, LSO prn for comfort discontinue burns cath, dw nursing bladder scanning with post void residual and straight cath if needed will follow <Sandi Garcia - Last Filed: 06/13/18 13:04> - Attending Attestation Doing well Neuro: no remarkable change Incision clean, dry cont. drain I have personally seen and examined the patient, reviewed pertinent labs and imaging studies. I agree with Ms. Garcia's ( Neurosurgery PA), assessment as well as plan of care. <Charlie Leon - Last Filed: 06/16/18 14:54>
--- NOTE | 2018-06-13 13:33 | P.PNIM ---
Subjective Interval history: Follow-up for falls, spinal stenosis, radiculopathy, S/P L3-4 , L4-5 decompressive laminectomy with posterior fixation using transpedicular screws and rods: Patient seen and examined, C/O significant pain, difficulty moving legs. Peripheral IV site noted infiltrated, this was stopped. No fever. No n/v/d. Wants to get up. Has a drain. Physical Exam Vital signs: Vital Signs 06/12/18 18:05 06/12/18 18:15 06/12/18 18:30 Temperature 98.2 F Pulse Rate 87 80 79 Respiratory Rate 15 24 26 H Blood Pressure 127/61 134/55 L 131/60 Pulse Oximetry 100 100 100 06/12/18 18:45 06/12/18 19:00 06/12/18 19:15 Temperature Pulse Rate 80 80 77 Respiratory Rate 20 20 15 Blood Pressure 164/70 H 149/69 H 159/67 H Pulse Oximetry 100 99 100 06/12/18 20:12 06/12/18 20:38 06/12/18 20:40 Temperature 98.0 F 98.0 F Pulse Rate 80 75 Respiratory Rate 14 17 17 Blood Pressure 144/65 H 157/66 H Pulse Oximetry 100 100 06/12/18 23:19 06/12/18 23:50 06/13/18 03:33 Temperature 97.8 F 98.1 F Pulse Rate 63 64 Respiratory Rate 17 18 17 Blood Pressure 129/70 137/59 L Pulse Oximetry 98 97 06/13/18 08:00 06/13/18 11:45 Temperature 98.6 F 97.8 F Pulse Rate 65 86 Respiratory Rate 18 18 Blood Pressure 126/57 L 148/67 H Pulse Oximetry 100 94 L Intake & Output 06/12/18 06/13/18 06/13/18 18:59 06:59 18:59 Intake Total 2650 / 2650 1100 / 1100 Output Total 1400 / 1400 825 / 825 180 / 180 Balance 1250 / 1250 275 / 275 -180 / -180 Weight 75.3 kg Intake: IV 250 / 250 1100 / 1100 NS + KCl 20 mEq Inj 1,000 ML @ 1000 / 1000 100 mls/hr IV.CONT .Q10H [facility] Rx #:[id number] Vancomycin Inj 1,000 MG In NS 250 / 250 Inj 250 ML @ 250 mls/hr IV.SIG PERSONNEL ADVISER [facility] Rx#:[id number] Ancef 2 GM Premix Inj 2 gm In 100 / 100 50 ml @ 100 mls/hr IV.SIG Q8H [facility] Rx#:[id number] Anesthesia Amount 2400 / 2400 Output: Estimated Blood Loss 450 / 450 Urine Amount (Catheter) 950 / 950 775 / 775 Indwelling Urethral Catheter 950 / 950 775 / 775 Wound Drainage 50 / 50 180 / 180 # 1 Right 50 / 50 180 / 180 Other: Date of Last Bowel Movement 06/12/18 # Bowel Movements 1 Narrative: GENERAL: Well-nourished, well-developed patient, grimacing SKIN: Warm and dry. HEAD: Atraumatic. Normocephalic. EYES: Pupils equal and round. No scleral icterus. No injection or drainage. ENT: No nasal bleeding or discharge. Mucous membranes pink and moist. NECK: Trachea midline. No JVD. CARDIOVASCULAR: Regular rate and rhythm. RESPIRATORY: No accessory muscle use. Clear to auscultation. Breath sounds equal bilaterally. GASTROINTESTINAL: Abdomen soft, non-tender, nondistended. Hepatic and splenic margins not palpable. MUSCULOSKELETAL: Extremities without clubbing, cyanosis, or edema. No obvious deformities. Bilateral lower extremity with distal weakness noted, 4 out of 5 left greater than right. Decreased sensation mid rojo down. Bilateral pedal pulses 2+ bilateral. Lower back dressing with hemovac, sanguineous drainage NEUROLOGICAL: Awake and alert. No obvious cranial nerve deficits. Weakness to both lower extremities, 4 out of 5. Decreased sensation to both feet. Shuffling gait. Speech is clear. PSYCHIATRIC: Appropriate mood and affect; insight and judgment normal. Urinary Catheter Management Straight: Cath placed during this visit: yes, but has since been removed by the nurse Reason for continuing: Not indwelling catheter Insertion date: 06/06/18 Insertion time: 09:45 Removal date: 06/06/18 Removal time: 09:46 Indwelling Urethral Catheter: Cath placed during this visit: yes Reason for continuing: Hourly intake/output Insertion date: 06/12/18 Insertion time: 11:30 Results Labs CBC & Chem 7: 06/13/18 05:23 06/13/18 05:23 Imaging Imaging: Impressions Lumbar Spine X-Ray 06/12/18 00:00 CONCLUSION: Satisfactory operative appearance Assessment and Plan Plan 78-year-old female with a history of type 2 diabetes and spinal stenosis presented to the ER following 2 months of progressive weakness of her bilateral legs and frequent falls. She has a history of bilateral neuropathy, uncertain if this is related to diabetes or spinal stenosis. She was told by orthopedic surgery in the past that her back would require a back surgery. She denies having any imaging recently of her back. She complains of incontinence of the bladder and recent history of constipation. She has been a diabetic for 20 years. Severe spinal stenosis, L3-L4, L4-L5 grade 1 anterolisthesis with instability of LS Radiculopathy Hx of neuropathy, spinal stenosis. Had been offered lumbar surgery in the past by orthopedic surgery -Evaluated per Dr. Jenkins, EMG studies completed-results noted -Neurosurgery following, they recommend surgery. Going to or tomorrow for L3-L4 , L4-L5 decompressive laminectomy and posterior fusion with Dr. Leon -Patient is medically stable to proceed with surgery. Had echo done, EF 55-60% . Twelve-lead EKG reviewed, sinus rhythm, no evidence of ischemia noted. -Continue with PT -Pain management -Labs reviewed, stable Hold heparin We will hold lisinopril postop -S/P s/p L3-4, L4-5 decompressive laminectomy with posterior fixation using transpedicular screws and rods 06/14 -CT Lumbar spine today per neurosurgery. -Continue lumbar draining and surgical dressing to be changed tomorrow Post op anemia Hgb on admit 10.5, now 8.3 -follow CBC Leukocytosis, WBC 14.5, likely secondary to surgery. No fever Follow CBC Monitor for fevers Fall with right hip pain, MRI showed no evidence of fracture History of frequent falls with gait instability Peripheral neuropathy Continue with physical therapy -Fall precautions Type 2 diabetes Peripheral neuropathy Hemoglobin A1c 6.1 Continue diabetic diet Continue with Accu-Cheks and insulin per sliding scale Hold glipizide and metformin for now Hypothyroidism -TSH was noted elevated Started on levothyroxine -Needs to follow-up as outpatient with PCP, have repeat TSH in 6-week Hypertension Continue lisinopril, will hold post op -Continue Clonidine PRN DVT Prophylaxis-on Heparin subcu (hold today, going to surgery) Physical therapy following We will follow-up on lumbar x-rays Discharge planning in progress, to SNF when neurosurgery clears. Discharge Planning: SNF poss. 1-2 days when cleared by neurosurgery Progress Note: Quality VTE Deep Vein Thrombosis/Pulmonary Embolism Present on Admission: No
[2018-06-13] MEDS: Insulin NovoLOG Aspart Correctional Sugar Inj SQ SCH ×3 (21:48→23:17)
--- NOTE | 2018-06-14 01:11 | CT ---
EXAM DATE: 06/14/2018 12:53 AM EST AGE/SEX: 78 years / Female INDICATIONS: Back pain; post op lumbar fusion. CLINICAL DATA: This is the patient's subsequent encounter. Patient reports that signs and symptoms h ave been present for 3 days and indicates a pain score of 7/10. MEDICAL/SURGICAL HISTORY: Diabetes. Hypertension. Urinary retention . Lumbar fusion RADIATION DOSE: 31.23 CTDI (mGy) [place] [facility] [place] 06/07/2018. . TECHNIQUE: Contiguous axial images were acquired with a multirow detector CT scanner without contras t. Multiplanar reconstructions in the sagittal and coronal plane were also performed. Using automate d exposure control and adjustment of the mA and/or kV according to patient size, radiation dose was k ept as low as reasonably achievable to obtain optimal diagnostic quality images. DICOM format image data is available electronically for review and comparison. FINDINGS: Vertebrae: Postsurgical features of interval laminectomies with transpedicular screw and naga fixatio n at L3-L5. There is a surgical drain in place with small amount of air and fluid in the surgical bed . The left L5 transpedicular screw extends through the medial cortex of the left pedicle effacing the far left lateral recess. The right L5 transpedicular screw extends slightly beyond the lateral verte bral body cortex. Hardware is intact. Vertebral body heights are maintained without acute bony fractu re. Alignment: Stable grade 1 anterolisthesis of L4 on L5. Paraspinal Soft Tissues: Unremarkable. No significant adenopathy. Aorta is non-aneurysmal. T12-L1: Vacuum disc phenomenon with diffuse disc bulge. No significant bony central canal or neural foraminal stenosis L1-L2: Diffuse disc bulge and mild bilateral facet arthropathy. Ligament flavum hypertrophy. Mild ef facement anterior thecal sac. Mild caudal right bony neural foraminal narrowing. L2-L3: Mild diffuse disc bulge. No significant bony central canal or neural foraminal stenosis. L3-L4: Laminectomies and posterior fixation hardware. No significant bony central canal or neural fo raminal stenosis. L4-L5: Vacuum disc phenomenon with diffuse disc bulge. Prominent bilateral facet hypertrophy. Bilate ral laminectomies and posterior fixation hardware. No significant bony neural foraminal narrowing. L5-S1: Posterior fixation hardware. Bony central canal is patent. [id number] bony neural adair inal narrowing bilaterally. CONCLUSION: 1. Status post laminectomies and transpedicular screw and naga fixation at L3-L5. Hardware is intact with hardware position described above. 2. Please see above for detailed description of each level. Electronically signed by: Campbell James MD Board Certified Radiologist 06/14/2018 1:09 AM EST
[2018-06-14] MEDS: Levothyroxine 75 MCG Tablet PO SCH (05:57)
[2018-06-14 06:12] LABS: Baso % (Auto) 0.2 % (0.0-2.0); Eos % (Auto) 0.3 % (0.0-4.0); Hematocrit 25.2 % (35.0-46.0); Lymph # (Auto) 1.9 th/mm3 (1.0-4.8); Lymph % (Auto) 17.9 % (9.0-44.0); Mean Corpuscular HGB Conc 31.8 % (32.0-36.0); Mean Corpuscular Hemoglobin 25.7 pg (27.0-34.0); Mean Corpuscular Volume 80.8 fL (80.0-100.0); Mean Platelet Volume 10.6 fL (7.0-11.0); Mono % (Auto) 8.9 % (0.0-8.0); Neut # (Auto) 7.9 th/mm3 (1.8-7.7); Neut % (Auto) 72.7 % (16.0-70.0); Platelet Count 174 th/mm3 (150-450); Red Blood Count 3.12 mil/mm3 (4.00-5.30); Red Cell Distribution Width 13.2 % (11.6-17.2); White Blood Count 10.8 th/mm3 (4.0-11.0)
[2018-06-14] MEDS ORDERED: Sodium Chlor 0.9% Inj 250 ML IV.SIG SCH (09:00)
[2018-06-14] MEDS: Senna/Docusate Sodium 8.6/50 MG Tablet PO SCH ×2 (09:03→20:37)
[2018-06-14] MEDS: Insulin NovoLOG Aspart Correctional Sugar Inj SQ SCH ×4 (10:11→20:37)
--- NOTE | 2018-06-14 13:49 | P.PNNS ---
Subjective Interval history: Sluggish today in terms of motivation, painful, not wishing to take pain meds Physical Exam Vital signs: Vital Signs 06/13/18 16:00 06/13/18 19:23 06/13/18 23:31 Temperature 99.1 F 97.6 F 98.3 F Pulse Rate 74 84 89 Respiratory Rate 18 17 17 Blood Pressure 132/50 L 121/60 159/71 H Pulse Oximetry 99 97 98 06/14/18 03:11 06/14/18 08:00 Temperature 98.6 F 99.3 F Pulse Rate 87 86 Respiratory Rate 17 20 Blood Pressure 156/73 H 192/80 H Pulse Oximetry 97 95 Intake & Output 06/13/18 06/14/18 06/14/18 18:59 06:59 18:59 Intake Total 1000 / 1000 100 / 100 Output Total 180 / 180 1170 / 1170 Balance 820 / 820 -1070 / -1070 Weight 74.4 kg Intake: IV 1000 / 1000 100 / 100 NS + KCl 20 mEq Inj 1,000 ML @ 1000 / 1000 100 / 100 50 mls/hr IV.CONT .Q20H [facility] Rx# :[id number] Output: Urine Amount (Catheter) 800 / 800 Indwelling Urethral Catheter 800 / 800 Wound Drainage 180 / 180 370 / 370 # 1 Right 180 / 180 Lumbar 370 / 370 Other: Date of Last Bowel Movement 06/12/18 06/12/18 Narrative: awake, mildly groggy conversing and following commands pupils are equal facial motor symmetric slow in speech Motor LEs 4/5 throughout dressing c/d/i - Urinary Catheter Management Straight Cath placed during this visit: yes, but has since been removed by the nurse Reason for continuing: Not indwelling catheter Insertion date: 06/06/18 Insertion time: 09:45 Removal date: 06/06/18 Removal time: 09:46 Indwelling Urethral Catheter Cath placed during this visit: yes Reason for continuing: Hourly intake/output Insertion date: 06/12/18 Insertion time: 11:30 Assessment and Plan - Plan 78 yr. old female with generalized BLE weakness and "stocking" distribution numbness as well as history of Diabetes L-Spine MRI shows severe central canal stenosis at L4/5 and marked stenosis at L3/4, both with Gr.I anterolisthesis. On exam, patient has baseline neuropathy c/w Diabetic origin When she ambulates more than a few feet around her room , she describes her legs as becoming progressively which improves somewhat with leaning forward. Classic" shopping cart" type sign most c/w Neurogenic claudication. At the time of my examination she denies any bowel/bladder dysfunction and in fact, had just used the bathroom facilities without evidence of incontinence Recc: L-spine Xray series including flex/ext views to r/o instability. EMG/NCS of BLE to confirm longstanding diabetic neuropathy. Dexa scan to evaluate bone quality Will reassess with results for L3/4, L4/5 decompression and fusion. Will need medical clearance Will follow 06/09/2018 flexion/extension L-spine images reviewed by neurosurgery team which showed instability EMG/NCV BLE ordered to door trimmer - pending may need decompression, poss stabilization- L3-4, L4-5 medical clearance for surgery will continue follow 06/10/2018 for EMG/NCV of BLE with Dr. Jenkins this morning, appreciate help follow up results further recommendations to follow, 06/11/2018 EMG results reviewed by neurosurgery team, treatment options were again discussed with the patient - conservative management vs surgical decompression of lumbar stenosis, patient wishes to proceed with surgery she has been cleared by medicine for surgical procedure NPO tonight after midnight, OR tomorrow for L3-4, L4-5 decompressive laminectomy and posterior fusion with Dr. Leon 06/13/2018 POD #1 s/p L3-4, L4-5 decompressive laminectomy with posterior fixation using transpedicular screws and rods dc Dilauded [employer]ONE[employer]TER, cont [place] and IV Morphine PRN f/u CT Lumbar spine today, cont lumbar draining change surgical dressing tomorrow PT, mobilize out of bed today, LSO prn for comfort discontinue burns cath, dw nursing bladder scanning with post void residual and straight cath if needed will follow 06/14/2018 POD #2 s/p L3-4, L4-5 decompressive laminectomy with posterior fixation using transpedicular screws and rods po pain meds f/u CT Lumbar spine today, cont drain til tomorrow -- f/u H/H 8.0 recommend transfusion but patient did not want change surgical dressing tomorrow PT, mobilize out of bed today, LSO prn for comfort discontinue burns cath, dw nursing bladder scanning with post void residual and straight cath if needed will follow
[2018-06-14 14:20] LABS: Anion Gap 4 meq/L (5-15); Blood Urea Nitrogen 10 mg/dL (7-18); Calcium 8.3 mg/dL (8.5-10.1); Carbon Dioxide 32.3 meq/L (21.0-32.0); Chloride 108 meq/L (98-107); Glomerular Filtration Rate Greater Than 89 mL/min (>89); Glucose,Random 156 mg/dL (74-106); Potassium 4.1 meq/L (3.5-5.1); Sodium 144 meq/L (136-145)
--- NOTE | 2018-06-14 15:43 | P.PNIM ---
Subjective Interval history: Follow-up for falls, spinal stenosis, radiculopathy, S/P L3-4 , L4-5 decompressive laminectomy with posterior fixation using transpedicular screws and rods: Patient seen and examined, patient anxious to get up and walk however she is not able to stand, legs are buckling. She was able to sit on the edge of the bed only. She is very frustrated, refused Accu-Cheks this morning. Dr. Valderrama doing rounds. Patient does not want to do blood transfusion , hemoglobin 8, hematocrit 25.2. She is asking for plasma only. No n/v. No fever Physical Exam Vital signs: Vital Signs 06/13/18 16:00 06/13/18 19:23 06/13/18 23:31 Temperature 99.1 F 97.6 F 98.3 F Pulse Rate 74 84 89 Respiratory Rate 18 17 17 Blood Pressure 132/50 L 121/60 159/71 H Pulse Oximetry 99 97 98 06/14/18 03:11 06/14/18 08:00 06/14/18 12:00 Temperature 98.6 F 99.3 F 98.5 F Pulse Rate 87 86 83 Respiratory Rate 17 20 20 Blood Pressure 156/73 H 192/80 H 144/61 H Pulse Oximetry 97 95 94 L Intake & Output 06/13/18 06/14/18 06/14/18 18:59 06:59 18:59 Intake Total 1000 / 1000 100 / 100 1000 / 1000 Output Total 180 / 180 1170 / 1170 Balance 820 / 820 -1070 / -1070 1000 / 1000 Weight 74.4 kg Intake: IV 1000 / 1000 100 / 100 1000 / 1000 NS + KCl 20 mEq Inj 1,000 ML @ 1000 / 1000 100 / 100 1000 / 1000 50 mls/hr IV.CONT .Q20H [facility] Rx# :[id number] Output: Urine Amount (Catheter) 800 / 800 Indwelling Urethral Catheter 800 / 800 Wound Drainage 180 / 180 370 / 370 # 1 Right 180 / 180 Lumbar 370 / 370 Other: Date of Last Bowel Movement 06/12/18 06/12/18 Narrative: GENERAL: Well-nourished, well-developed patient, grimacing SKIN: Warm and dry. HEAD: Atraumatic. Normocephalic. EYES: Pupils equal and round. No scleral icterus. No injection or drainage. ENT: No nasal bleeding or discharge. Mucous membranes pink and moist. NECK: Trachea midline. No JVD. CARDIOVASCULAR: Regular rate and rhythm. RESPIRATORY: No accessory muscle use. Clear to auscultation. Breath sounds equal bilaterally. GASTROINTESTINAL: Abdomen soft, non-tender, nondistended. Hepatic and splenic margins not palpable. MUSCULOSKELETAL: Extremities without clubbing, cyanosis, or edema. No obvious deformities. Bilateral lower extremity with distal weakness noted, 4 out of 5 left greater than right. Decreased sensation mid rojo down. Bilateral pedal pulses 2+ bilateral. Lower back dressing with hemovac, sanguineous drainage NEUROLOGICAL: Awake and alert. No obvious cranial nerve deficits. Weakness to both lower extremities, 4 out of 5. Decreased sensation to both feet. Shuffling gait. Speech is clear. PSYCHIATRIC: anxious Urinary Catheter Management Straight: Cath placed during this visit: yes, but has since been removed by the nurse Reason for continuing: Not indwelling catheter Insertion date: 06/06/18 Insertion time: 09:45 Removal date: 06/06/18 Removal time: 09:46 Indwelling Urethral Catheter: Cath placed during this visit: yes Reason for continuing: Hourly intake/output Insertion date: 06/12/18 Insertion time: 11:30 Results Labs CBC & Chem 7: 06/14/18 05:32 06/14/18 12:50 Imaging Imaging: Impressions Lumbar Spine CT 06/14/18 10:07 CONCLUSION: 1. Status post laminectomies and transpedicular screw and naga fixation at L3- L5. Hardware is intact with hardware position described above. 2. Please see above for detailed description of each level. Assessment and Plan Plan 78-year-old female with a history of type 2 diabetes and spinal stenosis presented to the ER following 2 months of progressive weakness of her bilateral legs and frequent falls. She has a history of bilateral neuropathy, uncertain if this is related to diabetes or spinal stenosis. She was told by orthopedic surgery in the past that her back would require a back surgery. She denies having any imaging recently of her back. She complains of incontinence of the bladder and recent history of constipation. She has been a diabetic for 20 years. Severe spinal stenosis, L3-L4, L4-L5 grade 1 anterolisthesis with instability of LS Radiculopathy Hx of neuropathy, spinal stenosis. Had been offered lumbar surgery in the past by orthopedic surgery -Evaluated per Dr. Alice, EMG studies completed-results noted -Neurosurgery following, they recommend surgery. Going to or tomorrow for L3-L4 , L4-L5 decompressive laminectomy and posterior fusion with Dr. Leon -Patient is medically stable to proceed with surgery. Had echo done, EF 55-60% . Twelve-lead EKG reviewed, sinus rhythm, no evidence of ischemia noted. 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 Was discontinued per surgery. Heparin on hold -S/P s/p L3-4, L4-5 decompressive laminectomy with posterior fixation using transpedicular screws and rods 06/14 -post op CT Lumbar spine results noted -Continue lumbar drain, still with inc. output. -continue with PT, inc. mobility as tolerated. Post op anemia Hgb on admit 10.5, trending down Drainage from hemovac 370 yesterday - 12/28.2. PRBC ordered. Pt refusing. Dr. Valderrama made aware -will continue to monitor CBC Leukocytosis, WBC 14.5, likely secondary to surgery. No fever Follow CBC, WBC now 10.8 Monitor for fevers Fall with right hip pain, MRI showed no evidence of fracture History of frequent falls with gait instability Peripheral neuropathy Continue with physical therapy -Fall precautions -debilitated post op, enc. to continue working with PT Type 2 diabetes Peripheral neuropathy Hemoglobin A1c 6.1 Continue diabetic diet Continue with Accu-Cheks and insulin per sliding scale Hold glipizide and metformin for now Hypothyroidism -TSH was noted elevated Started on levothyroxine -Needs to follow-up as outpatient with PCP, have repeat TSH in 6-week Hypertension -Continue Clonidine PRN -BP elevated, will resume Lisinopril 20 mg po daily DVT Prophylaxis-on Heparin subcu (on hold, will resume when ok with neurosurgery ) Physical therapy following Follow CBC in am Code Status: Full code Discussed Condition With: RN, pt, CM Dr. Kal Valderrama Discharge Planning: SNF poss. 1-2 days when cleared by neurosurgery Progress Note: Quality VTE Deep Vein Thrombosis/Pulmonary Embolism Present on Admission: No
[2018-06-15] MEDS: Levothyroxine 75 MCG Tablet PO SCH ×2 (04:31→06:18)
[2018-06-15] MEDS: Lisinopril 20 MG Tablet PO SCH (08:31)
[2018-06-15 08:32] LABS: Baso % (Auto) 0.3 % (0.0-2.0); Eos # (Auto) 0.1 th/mm3 (0.0-0.4); Eos % (Auto) 1.3 % (0.0-4.0); Lymph # (Auto) 1.9 th/mm3 (1.0-4.8); Lymph % (Auto) 20.4 % (9.0-44.0); Mean Corpuscular Hemoglobin 26.4 pg (27.0-34.0); Mean Corpuscular Volume 82.6 fL (80.0-100.0); Mean Platelet Volume 10.7 fL (7.0-11.0); Mono # (Auto) 0.7 th/mm3 (0.0-0.9); Mono % (Auto) 7.9 % (0.0-8.0); Neut # (Auto) 6.5 th/mm3 (1.8-7.7); Neut % (Auto) 70.1 % (16.0-70.0); Platelet Count 170 th/mm3 (150-450); Red Blood Count 2.57 mil/mm3 (4.00-5.30); Red Cell Distribution Width 13.2 % (11.6-17.2); White Blood Count 9.2 th/mm3 (4.0-11.0)
[2018-06-15] MEDS: Senna/Docusate Sodium 8.6/50 MG Tablet PO SCH ×2 (08:32→22:02)
[2018-06-15] MEDS: Insulin NovoLOG Aspart Correctional Sugar Inj SQ SCH ×4 (08:32→22:06)
[2018-06-15 08:42] LABS: Hematocrit 21.2 % (35.0-46.0); Hemoglobin 6.8 gm/dL (11.6-15.3)
[2018-06-15] MEDS ORDERED: Sodium Chlor 0.9% Inj 250 ML IV.SIG SCH (09:00)
--- NOTE | 2018-06-15 09:14 | P.PNNS ---
Subjective Interval history: More alert and pleasant this morning Agreed to a pain pill sitting at side of bed with a brace willing to participate and get a transfusion now Turned the corner Physical Exam Vital signs: Vital Signs 06/14/18 12:00 06/14/18 16:00 06/14/18 19:15 Temperature 98.5 F 99.4 F 99.4 F Pulse Rate 83 92 H 87 Respiratory Rate 20 20 18 Blood Pressure 144/61 H 174/72 H 149/65 H Pulse Oximetry 94 L 95 97 06/14/18 23:14 06/15/18 04:12 Temperature 99.1 F 97.9 F Pulse Rate 81 87 Respiratory Rate 18 20 Blood Pressure 160/68 H 185/76 H Pulse Oximetry 98 96 Intake & Output 06/14/18 06/15/18 06/15/18 18:59 06:59 18:59 Intake Total 1000 / 1000 Output Total 1440 / 1440 Balance 1000 / 1000 -1440 / -1440 Weight 75.4 kg Intake: IV 1000 / 1000 NS + KCl 20 mEq Inj 1,000 ML @ 1000 / 1000 50 mls/hr IV.CONT .Q20H [facility] Rx# :[id number] Output: Urine 600 / 600 Urine Amount (Catheter) 600 / 600 Straight 600 / 600 Wound Drainage 240 / 240 Lumbar 240 / 240 Other: Date of Last Bowel Movement 06/12/18 06/12/18 Narrative: awake, much more alert today following commands pupils are equal facial motor symmetric Motor LEs 5/5 throughout though her legs give out when she walks incision c/d/i - Urinary Catheter Management Straight Cath placed during this visit: yes, but has since been removed by the nurse Reason for continuing: Not indwelling catheter Insertion date: 06/15/18 Insertion time: 09:45 Removal date: 06/06/18 Removal time: 09:46 Indwelling Urethral Catheter Cath placed during this visit: yes, but has since been removed by the nurse Reason for continuing: Not indwelling catheter Insertion date: 06/12/18 Insertion time: 11:30 Removal date: 06/14/18 Removal time: 23:00 Assessment and Plan - Plan 78 yr. old female with generalized BLE weakness and "stocking" distribution numbness as well as history of Diabetes L-Spine MRI shows severe central canal stenosis at L4/5 and marked stenosis at L3/4, both with Gr.I anterolisthesis. On exam, patient has baseline neuropathy c/w Diabetic origin When she ambulates more than a few feet around her room , she describes her legs as becoming progressively which improves somewhat with leaning forward. Classic" shopping cart" type sign most c/w Neurogenic claudication. At the time of my examination she denies any bowel/bladder dysfunction and in fact, had just used the bathroom facilities without evidence of incontinence Recc: L-spine Xray series including flex/ext views to r/o instability. EMG/NCS of BLE to confirm longstanding diabetic neuropathy. Dexa scan to evaluate bone quality Will reassess with results for L3/4, L4/5 decompression and fusion. 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 Jenkins this morning, appreciate help follow up results further recommendations to follow, 06/11/2018 EMG results reviewed by neurosurgery team, treatment options were again discussed with the patient - conservative management vs surgical decompression of lumbar stenosis, patient wishes to proceed with surgery she has been cleared by medicine for surgical procedure NPO tonight after midnight, OR tomorrow for L3-4, L4-5 decompressive laminectomy and posterior fusion with Dr. 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, cont [place] and IV Morphine PRN f/u CT Lumbar spine today, cont lumbar draining change surgical dressing tomorrow PT, mobilize out of bed today, LSO prn for comfort discontinue burns cath, dw nursing bladder scanning with post void residual and straight cath if needed will follow 06/14/2018 POD #2 s/p L3-4, L4-5 decompressive laminectomy with posterior fixation using transpedicular screws and rods po pain meds f/u CT Lumbar spine today, cont drain til tomorrow -- f/u H/H 8.0 recommend transfusion but patient did not want change surgical dressing tomorrow PT, mobilize out of bed today, LSO prn for comfort discontinue burns cath, dw nursing bladder scanning with post void residual and straight cath if needed will follow 06/15/2018 POD #3 s/p L3-4, L4-5 decompressive laminectomy with posterior fixation using transpedicular screws and rods Hgb 6 today-- transfuse 2 units PRBC d/c drain today continue mobilization PT/OT, check on Tony for this week required straight cath last night (has history of urinary retention) will follow
[2018-06-15 10:05] LABS: Stomatocytes 1+
[2018-06-15] MEDS: Acetaminophen 325 MG Tablet PO PRN (15:56)
--- NOTE | 2018-06-15 16:06 | P.PNIM ---
Subjective Interval history: Follow-up for falls, spinal stenosis, radiculopathy, S/P L3-4 , L4-5 decompressive laminectomy with posterior fixation using transpedicular screws and rods: Patient seen and examined, sitting up in bed, wants to get up to the chair. More alert today. Has not had BM yet. Wearing TLSO brace. Hemoglobin 6.8, hematocrit 21.2, patient now agreeable to have blood transfusion. Had urinary retention yesterday, was straight cath, 600 cc obtained Physical Exam Vital signs: Vital Signs 06/14/18 19:15 06/14/18 23:14 06/15/18 04:12 Temperature 99.4 F 99.1 F 97.9 F Pulse Rate 87 81 87 Respiratory Rate 18 18 20 Blood Pressure 149/65 H 160/68 H 185/76 H Pulse Oximetry 97 98 96 06/15/18 08:00 06/15/18 12:00 06/15/18 15:45 Temperature 99.8 F H 98.3 F 98.3 F Pulse Rate 90 74 74 Respiratory Rate 18 18 18 Blood Pressure 129/58 L 119/54 L 119/54 L Pulse Oximetry 98 97 97 06/15/18 15:52 Temperature 98.3 F Pulse Rate 74 Respiratory Rate 18 Blood Pressure 119/54 L Pulse Oximetry 97 Intake & Output 06/14/18 06/15/18 06/15/18 18:59 06:59 18:59 Intake Total 1000 / 1000 0 / 0 Output Total 1440 / 1440 Balance 1000 / 1000 -1440 / -1440 0 / 0 Weight 75.4 kg Intake: IV 1000 / 1000 NS + KCl 20 mEq Inj 1,000 ML @ 1000 / 1000 50 mls/hr IV.CONT .Q20H [facility] Rx# :[id number] Intake (Blood Product) Amt 0 / 0 Rbc As-3 Leukoreduced Unit 0 / 0 [id number] Output: Urine 600 / 600 Urine Amount (Catheter) 600 / 600 Straight 600 / 600 Wound Drainage 240 / 240 Lumbar 240 / 240 Other: Date of Last Bowel Movement 06/12/18 06/12/18 06/12/18 Narrative: GENERAL: Well-nourished, well-developed patient, no apparent distress SKIN: Warm and dry. HEAD: Atraumatic. Normocephalic. EYES: Pupils equal and round. No scleral icterus. No injection or drainage. ENT: No nasal bleeding or discharge. Mucous membranes pink and moist. NECK: Trachea midline. No JVD. CARDIOVASCULAR: Regular rate and rhythm. RESPIRATORY: No accessory muscle use. Clear to auscultation. Breath sounds equal bilaterally. GASTROINTESTINAL: Abdomen soft, non-tender, nondistended. Hepatic and splenic margins not palpable. MUSCULOSKELETAL: Extremities without clubbing, cyanosis, or edema. No obvious deformities. Bilateral lower extremity with distal weakness noted, 4 out of 5 left greater than right. Decreased sensation mid rojo down. Bilateral pedal pulses 2+ bilateral. Lower back dressing with hemovac, sanguineous drainage NEUROLOGICAL: Awake and alert. No obvious cranial nerve deficits. Weakness to both lower extremities, 4 out of 5. Decreased sensation to both feet. PSYCHIATRIC: Appropriate, cooperative Urinary Catheter Management Straight: Cath placed during this visit: yes, but has since been removed by the nurse Reason for continuing: Not indwelling catheter Insertion date: 06/15/18 Insertion time: 09:45 Removal date: 06/06/18 Removal time: 09:46 Indwelling Urethral Catheter: Cath placed during this visit: yes, but has since been removed by the nurse Reason for continuing: Not indwelling catheter Insertion date: 06/12/18 Insertion time: 11:30 Removal date: 06/14/18 Removal time: 23:00 Results Labs CBC & Chem 7: 06/15/18 07:13 06/14/18 12:50 Procedures Procedures: S/P s/p L3-4, L4-5 decompressive laminectomy with posterior fixation using transpedicular screws and rods 06/14 Assessment and Plan Plan 78-year-old female with a history of type 2 diabetes and spinal stenosis presented to the ER following 2 months of progressive weakness of her bilateral legs and frequent falls. She has a history of bilateral neuropathy, uncertain if this is related to diabetes or spinal stenosis. She was told by orthopedic surgery in the past that her back would require a back surgery. She denies having any imaging recently of her back. She complains of incontinence of the bladder and recent history of constipation. She has been a diabetic for 20 years. Severe spinal stenosis, L3-L4, L4-L5 grade 1 anterolisthesis with instability of LS Radiculopathy Hx of neuropathy, spinal stenosis. Had been offered lumbar surgery in the past by orthopedic surgery -Evaluated per Dr. Jenkins, EMG studies completed-results noted -Neurosurgery following, they recommend surgery. Going to or tomorrow for L3-L4 , L4-L5 decompressive laminectomy and posterior fusion with Dr. Leon -Patient is medically stable to proceed with surgery. Had echo done, EF 55-60% . Twelve-lead EKG reviewed, sinus rhythm, no evidence of ischemia noted. 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 Was discontinued per surgery. -S/P s/p L3-4, L4-5 decompressive laminectomy with posterior fixation using transpedicular screws and rods 06/14 -post op CT Lumbar spine results noted -Lumbar drain to be removed today per surgery recommendation -continue with PT, inc. mobility as tolerated. -TLSO brace when out of bed -Discussed with Dr. Valderrama, anjelica to restart heparin for DVT proph. Post op anemia Hgb on admit 10.5, trending down Drainage from hemovac 370 yesterday - 8/25.2, today 6.8/21.1-agreeable with blood transfusion, will repeat type and screen and transfuse 2 units of packed cells with Lasix 20 mg in between Repeat CBC in the morning Leukocytosis, WBC 14.5, likely secondary to surgery. No fever Follow CBC, WBC now 9.2 Monitor for fevers Urinary retention Continue to bladder scan and straight cath as needed -Increase activity as tolerated -Start Urecholine 10 mg p.o. 3 times daily Fall with right hip pain, MRI showed no evidence of fracture History of frequent falls with gait instability Peripheral neuropathy Continue with physical therapy -Fall precautions -debilitated post op, enc. to continue working with PT Type 2 diabetes Peripheral neuropathy Hemoglobin A1c 6.1 Continue diabetic diet Continue with Accu-Cheks and insulin per sliding scale Blood sugars elevated, up to 300s. Resume glipizide and metformin Hypothyroidism -TSH was noted elevated Started on levothyroxine -Needs to follow-up as outpatient with PCP, have repeat TSH in 6-week Hypertension -Continue Clonidine PRN -BP elevated, will resume Lisinopril 20 mg po daily DVT Prophylaxis-on Heparin subcu Physical therapy following Follow CBC in am Hopefully to rehab in 1-2 days when neurosurgery clears Discharge Planning: SNF poss. 1-2 days when cleared by neurosurgery Progress Note: Quality VTE Deep Vein Thrombosis/Pulmonary Embolism Present on Admission: No
[2018-06-15] MEDS: glipiZIDE 5 MG Tablet PO SCH (18:13)
[2018-06-15] MEDS ORDERED: Bisacodyl 10 MG Supp RECTAL PRN (18:20)
[2018-06-16] MEDS: Levothyroxine 75 MCG Tablet PO SCH (05:59)
[2018-06-16 06:43] LABS: Baso # (Auto) 0.1 th/mm3 (0.0-0.2); Baso % (Auto) 0.6 % (0.0-2.0); Eos # (Auto) 0.2 th/mm3 (0.0-0.4); Eos % (Auto) 1.7 % (0.0-4.0); Hematocrit 31.2 % (35.0-46.0); Hemoglobin 10.3 gm/dL (11.6-15.3); Lymph # (Auto) 2.2 th/mm3 (1.0-4.8); Lymph % (Auto) 22.7 % (9.0-44.0); Mean Corpuscular HGB Conc 32.9 % (32.0-36.0); Mean Corpuscular Hemoglobin 27.1 pg (27.0-34.0); Mean Corpuscular Volume 82.2 fL (80.0-100.0); Mean Platelet Volume 10.7 fL (7.0-11.0); Mono # (Auto) 0.9 th/mm3 (0.0-0.9); Mono % (Auto) 8.6 % (0.0-8.0); Neut # (Auto) 6.5 th/mm3 (1.8-7.7); Neut % (Auto) 66.4 % (16.0-70.0); Platelet Count 195 th/mm3 (150-450); Red Blood Count 3.79 mil/mm3 (4.00-5.30); Red Cell Distribution Width 13.3 % (11.6-17.2); White Blood Count 9.9 th/mm3 (4.0-11.0)
[2018-06-16 07:05] LABS: Anion Gap 6 meq/L (5-15); Blood Urea Nitrogen 14 mg/dL (7-18); Calcium 8.4 mg/dL (8.5-10.1); Chloride 104 meq/L (98-107); Glomerular Filtration Rate Greater Than 89 mL/min (>89); Glucose,Random 132 mg/dL (74-106); Potassium 3.5 meq/L (3.5-5.1); Sodium 142 meq/L (136-145)
--- NOTE | 2018-06-16 10:50 | P.PNIM ---
Subjective Interval history: Follow-up for falls, spinal stenosis, radiculopathy, S/P L3-4 , L4-5 decompressive laminectomy with posterior fixation using transpedicular screws and rods: Patient seen and examined, more awake today, sitting up in chair. Pain well controlled. No nausea, no vomiting. Eating well, does not want to eat too much eggs because of cholesterol. Overall feeling better, continues to be motivated. Still frustrated that she cannot get up and walk. Continues with urinary retention, intermittent catheterization overnight. Physical Exam Vital signs: Vital Signs 06/15/18 12:00 06/15/18 15:45 06/15/18 15:52 Temperature 98.3 F 98.3 F 98.3 F Pulse Rate 74 74 74 Respiratory Rate 18 18 18 Blood Pressure 119/54 L 119/54 L 119/54 L Pulse Oximetry 97 97 97 06/15/18 16:00 06/15/18 16:07 06/15/18 20:32 Temperature 98.9 F 98.9 F 99.3 F Pulse Rate 76 77 77 Respiratory Rate 18 17 18 Blood Pressure 168/72 H 128/72 154/73 H Pulse Oximetry 95 95 98 06/16/18 00:21 06/16/18 00:37 06/16/18 01:56 Temperature 98.8 F 98.7 F Pulse Rate 82 79 77 Respiratory Rate 15 16 Blood Pressure 144/66 H 164/70 H 146/67 H Pulse Oximetry 98 96 06/16/18 04:00 06/16/18 08:00 Temperature 98.6 F 98.8 F Pulse Rate 74 85 Respiratory Rate 18 18 Blood Pressure 131/63 146/77 H Pulse Oximetry 98 97 Intake & Output 06/15/18 06/16/18 06/16/18 18:59 06:59 18:59 Intake Total 50 / 50 820 / 820 Output Total 2200 / 2200 Balance 50 / 50 -1380 / -1380 Weight 73.7 kg Intake: IV 50 / 50 50 / 50 NS Inj 250 ML @ 15 mls/hr IV. 50 / 50 SIG ONCE DESIREE Rx#:[id number] Oral 720 / 720 Other 50 / 50 Rbc As-3 Leukoreduced Unit 50 / 50 [id number] Intake (Blood Product) Amt 0 / 0 0 / 0 Rbc As-3 Leukoreduced Unit 0 / 0 [id number] Rbc As-3 Leukoreduced Unit 0 / 0 [id number] Output: Urine Amount (Catheter) 2199 / 0 Straight 2199 Other: Date of Last Bowel Movement 06/12/18 06/16/18 # Incontinent Bowel Movements 1 Narrative: GENERAL: Well-nourished, well-developed patient, no apparent distress SKIN: Warm and dry. HEAD: Atraumatic. Normocephalic. EYES: Pupils equal and round. No scleral icterus. No injection or drainage. ENT: No nasal bleeding or discharge. Mucous membranes pink and moist. NECK: Trachea midline. No JVD. CARDIOVASCULAR: Regular rate and rhythm. RESPIRATORY: No accessory muscle use. Clear to auscultation. Breath sounds equal bilaterally. GASTROINTESTINAL: Abdomen soft, non-tender, nondistended. Hepatic and splenic margins not palpable. MUSCULOSKELETAL: Extremities without clubbing, cyanosis, or edema. No obvious deformities. Bilateral lower extremity with distal weakness noted, 3 out of 5 left greater than right. Decreased sensation mid rojo down. Bilateral pedal pulses 2+ bilateral. Back dressing in place, no drainage. Hemovac drain has been removed. NEUROLOGICAL: Awake and alert. No obvious cranial nerve deficits. Weakness to both lower extremities, 4 out of 5. Decreased sensation to both feet. PSYCHIATRIC: Appropriate, cooperative Urinary Catheter Management Straight: Cath placed during this visit: yes, but has since been removed by the nurse Reason for continuing: Not indwelling catheter Insertion date: 06/15/18 Insertion time: 09:45 Removal date: 06/06/18 Removal time: 09:46 Indwelling Urethral Catheter: Cath placed during this visit: yes, but has since been removed by the nurse Reason for continuing: Not indwelling catheter Insertion date: 06/12/18 Insertion time: 11:30 Removal date: 06/14/18 Removal time: 23:00 Suprapubic: Cath placed during this visit: yes, but has since been removed by the nurse Reason for continuing: Continue criteria not met Insertion date: 06/15/18 Insertion time: 23:02 Removal date: 06/15/18 Removal time: 23:22 Results Labs CBC & Chem 7: 06/16/18 05:19 06/16/18 05:19 Procedures Procedures: S/P s/p L3-4, L4-5 decompressive laminectomy with posterior fixation using transpedicular screws and rods 06/14 Assessment and Plan Plan 78-year-old female with a history of type 2 diabetes and spinal stenosis presented to the ER following 2 months of progressive weakness of her bilateral legs and frequent falls. She has a history of bilateral neuropathy, uncertain if this is related to diabetes or spinal stenosis. She was told by orthopedic surgery in the past that her back would require a back surgery. She denies having any imaging recently of her back. She complains of incontinence of the bladder and recent history of constipation. She has been a diabetic for 20 years. Severe spinal stenosis, L3-L4, L4-L5 grade 1 anterolisthesis with instability of LS Radiculopathy Hx of neuropathy, spinal stenosis. Had been offered lumbar surgery in the past by orthopedic surgery -Evaluated per Dr. Jenkins, EMG studies completed-results noted -Neurosurgery following, they recommend surgery. Going to or tomorrow for L3-L4 , L4-L5 decompressive laminectomy and posterior fusion with Dr. Leon -Patient is medically stable to proceed with surgery. Had echo done, EF 55-60% . Twelve-lead EKG reviewed, sinus rhythm, no evidence of ischemia noted. 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 Was discontinued per surgery. -S/P s/p L3-4, L4-5 decompressive laminectomy with posterior fixation using transpedicular screws and rods 06/14 -post op CT Lumbar spine results noted -Lumbar drain to be removed today per surgery recommendation -continue with PT, inc. mobility as tolerated. -TLSO brace when out of bed -Discussed with Dr. Valderrama, okay to restart heparin for DVT proph. Post op anemia Hgb on admit 10.5, trending down Drainage from hemovac 370 yesterday -HH 8/25.2, today 6.8/21.1-S/P PRBC x 2 -post transfusion HH 10.3/31.2 Leukocytosis, WBC 14.5, likely secondary to surgery. No fever Follow CBC, WBC now 9.9 Monitor for fevers Urinary retention Continue to bladder scan and straight cath as needed -Increase activity as tolerated -continue Urecholine 10 mg p.o. 3 times daily Fall with right hip pain, MRI showed no evidence of fracture History of frequent falls with gait instability Peripheral neuropathy Continue with physical therapy -Fall precautions -debilitated post op, enc. to continue working with PT Type 2 diabetes Peripheral neuropathy Hemoglobin A1c 6.1 Continue diabetic diet Continue with Accu-Cheks and insulin per sliding scale Blood sugars elevated, up to 300s. Resume glipizide and metformin Hypothyroidism -TSH was noted elevated Started on levothyroxine -Needs to follow-up as outpatient with PCP, have repeat TSH in 6-week Hypertension -Continue Clonidine PRN -BP elevated, will resume Lisinopril 20 mg po daily DVT Prophylaxis-on Heparin subcu Physical therapy following Discharge when okay per neurosurgery Code Status: Full code Discussed Condition With: RN, pt, CM Dr. Bowden Discharge Planning: Ready for dc when neurosurgery clears, going to SNF Progress Note: Quality VTE Deep Vein Thrombosis/Pulmonary Embolism Present on Admission: No
[2018-06-16] MEDS: Lisinopril 20 MG Tablet PO SCH (10:53)
[2018-06-16] MEDS: Senna/Docusate Sodium 8.6/50 MG Tablet PO SCH ×2 (10:53→22:09)
[2018-06-16] MEDS: glipiZIDE 5 MG Tablet PO SCH ×3 (10:53→19:46)
[2018-06-16] MEDS: Insulin NovoLOG Aspart Correctional Sugar Inj SQ SCH ×4 (14:47→22:09)
--- NOTE | 2018-06-16 14:58 | P.PCN ---
Date of procedure: 06/12/18 Pre-op diagnosis: L3/4,L4/5 spinal stenosis and Gr. I sponylolisthesis Post-op diagnosis: same Procedure: L3/4,L4/5 decompression and fusion with spinal instrumentation Neuro-Monitoring Anesthesia: [place] Surgeon: Charlie Leon Disaster Response Director: Kermit Armendariz Estimated blood loss (mL): 450 Pathology: none sent Condition: stable Disposition: PACU (Extubated, awake, alert, no change from her pre-operative state.)
--- NOTE | 2018-06-16 20:46 | P.PNREH ---
Subjective Interval history: Patient awake and alert. Resting comfortably in bed. Denies any shortness of breath or chest pain. Review of Systems As previously documented Exam Physical Examination Vital Signs / I&O: Vital Signs 06/16/18 00:21 06/16/18 00:37 06/16/18 01:56 Temperature 98.8 F 98.7 F Pulse Rate 82 79 77 Respiratory Rate 15 16 Blood Pressure 144/66 H 164/70 H 146/67 H Pulse Oximetry 98 96 06/16/18 04:00 06/16/18 08:00 06/16/18 12:00 Temperature 98.6 F 98.8 F 98.9 F Pulse Rate 74 85 85 Respiratory Rate 18 18 22 Blood Pressure 131/63 146/77 H 173/79 H Pulse Oximetry 98 97 97 06/16/18 16:00 06/16/18 16:15 Temperature 100.6 F H Pulse Rate 91 H Respiratory Rate 20 Blood Pressure 180/76 H 170/78 H Pulse Oximetry 99 Intake & Output 06/16/18 06/16/18 06/17/18 06:59 18:59 06:59 Intake Total 820 / 820 Output Total 2200 / 2200 1000 / 1000 800 / 800 Balance -1380 / -1380 -1000 / -1000 -800 / -800 Weight 73.7 kg Intake: IV 50 / 50 NS Inj 250 ML @ 15 mls/hr IV. 50 / 50 SIG ONCE DESIREE Rx#:[id number] Oral 720 / 720 Other 50 / 50 Rbc As-3 Leukoreduced Unit 50 / 50 [id number] Intake (Blood Product) Amt 0 / 0 Rbc As-3 Leukoreduced Unit 0 / 0 [id number] Output: Urine Amount (Catheter) 2200 / 2200 1000 / 1000 800 / 800 Straight 2200 / 2200 1000 / 1000 800 / 800 Other: Date of Last Bowel Movement 06/16/18 06/16/18 # Incontinent Bowel Movements 1 Intake & Output 06/14/18 06/15/18 06/16/18 06/17/18 06:59 06:59 06:59 06:59 Intake Total 1100 / 1100 1000 / 1000 870 / 870 Output Total 1350 / 1350 1440 / 1440 2200 / 2200 1800 / 1800 Balance -250 / -250 -440 / -440 -1330 / -1330 -1800 / -1800 Weight 74.4 kg 75.4 kg 73.7 kg General: No acute distress Date of Last Bowel Movement: 06/16/18 Skin: No rash Musculoskeletal: Tenderness (No calf tenderness) and Swelling (None in distal lower extremities) Psychiatric: Cooperative and Appropriate mood & affect Neurologic Orientation: oriented to: Self, Place, Time and Situation Motor: Right Upper Extremity (5/5), Left Upper Extremity (5/5 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/ 5), Right Lower Extremity (Testing limited by pain but distal strength appears to be at least 3/5) and Left Lower Extremity (Testing limited by pain but distal strength appears to be at least 3/5) Spasticity: None noted Sensory: Impaired in the distal lower extremities bilaterally Objective Laboratory Results - last 24 hr 06/15/18 06/15/18 06/15/18 13:00 21:43 21:45 WBC RBC Hgb Hct MCV MCH MCHC RDW Plt Count MPV Neut % (Auto) Lymph % (Auto) [place] % (Auto) Eos % (Auto) Baso % (Auto) Neut # (Auto) Lymph # (Auto) [place] # (Auto) Eos # (Auto) Baso # (Auto) WBC Differential Differential Comment Sodium Potassium Chloride Carbon Dioxide Anion Gap BUN Creatinine Estimated GFR POC Glucose 460 H* 349 H Random Glucose Calcium Blood Type O Negative Antibody Screen Negative MTS Gel Crossmatch See Detail 06/15/18 06/16/18 06/16/18 22:12 05:19 05:19 WBC 9.9 RBC 3.79 L Hgb 10.3 L D Hct 31.2 L MCV 82.2 MCH 27.1 MCHC 32.9 RDW 13.3 Plt Count 195 MPV 10.7 Neut % (Auto) 66.4 Lymph % (Auto) 22.7 [place] % (Auto) 8.6 H Eos % (Auto) 1.7 Baso % (Auto) 0.6 Neut # (Auto) 6.5 Lymph # (Auto) 2.2 [place] # (Auto) 0.9 Eos # (Auto) 0.2 Baso # (Auto) 0.1 WBC Differential . Differential Comment Auto diff final Sodium 142 Potassium 3.5 Chloride 104 Carbon Dioxide 32.0 Anion Gap 6 BUN 14 Creatinine 0.63 Estimated GFR Greater than 89 POC Glucose Random Glucose 205 H 132 H Calcium 8.4 L Blood Type Antibody Screen MTS Gel Crossmatch 06/16/18 06/16/18 08:37 17:37 WBC RBC Hgb Hct MCV MCH MCHC RDW Plt Count MPV Neut % (Auto) Lymph % (Auto) [place] % (Auto) Eos % (Auto) Baso % (Auto) Neut # (Auto) Lymph # (Auto) [place] # (Auto) Eos # (Auto) Baso # (Auto) WBC Differential Differential Comment Sodium Potassium Chloride Carbon Dioxide Anion Gap BUN Creatinine Estimated GFR POC Glucose 173 H 140 H Random Glucose Calcium Blood Type Antibody Screen MTS Gel Crossmatch Assessment and Plan Plan Assessment: 1. Spinal stenosis with neurogenic claudication 2. Diabetes mellitus with possible neuropathy 3. Impaired mobility and ADLs Recommendations: 1. Physical therapy is mobilizing the patient is now max assist to transfer. Continue close supervision for fall prevention and continue to mobilize 2. Occupational Therapy is addressing ADLs and now contact guard grooming and max assist for dressing 3. Case management is addressing discharge planning and has made referrals for [facility] facility placement 4. Will continue to follow while hospitalized and as appropriate at discharge
[2018-06-17] MEDS: Levothyroxine 75 MCG Tablet PO SCH (05:13)
[2018-06-17] MEDS: Insulin NovoLOG Aspart Correctional Sugar Inj SQ SCH ×4 (08:18→20:13)
[2018-06-17] MEDS: glipiZIDE 5 MG Tablet PO SCH ×3 (08:23→17:19)
[2018-06-17] MEDS: Senna/Docusate Sodium 8.6/50 MG Tablet PO SCH ×2 (08:23→20:12)
[2018-06-17] MEDS: Lisinopril 20 MG Tablet PO SCH (08:23)
--- NOTE | 2018-06-17 09:41 | P.PNNS ---
Subjective Interval history: More today motivated today, pain better controlled, Wants to go home, No events overnight Physical Exam Vital signs: Vital Signs 06/16/18 12:00 06/16/18 16:00 06/16/18 16:15 Temperature 98.9 F 100.6 F H Pulse Rate 85 91 H Respiratory Rate 22 20 Blood Pressure 173/79 H 180/76 H 170/78 H Pulse Oximetry 97 99 06/16/18 19:30 06/16/18 21:55 06/17/18 00:00 Temperature 99.5 F 99.6 F Pulse Rate 98 H 78 92 H Respiratory Rate 18 18 Blood Pressure 129/66 184/86 H Pulse Oximetry 96 98 06/17/18 04:00 06/17/18 08:00 Temperature 98.7 F 99.0 F Pulse Rate 71 95 H Respiratory Rate 18 18 Blood Pressure 165/70 H 168/77 H Pulse Oximetry 97 92 L Intake & Output 06/16/18 06/17/18 06/17/18 18:59 06:59 18:59 Intake Total 120 / 120 Output Total 1000 / 1000 1700 / 1700 Balance -1000 / -1000 -1580 / -1580 Weight 74.8 kg Intake: Oral 120 / 120 Output: Urine 900 / 900 Urine Amount (Catheter) 1000 / 1000 800 / 800 Straight 1000 / 1000 800 / 800 Other: # Voids 1 Date of Last Bowel Movement 06/16/18 06/16/18 - Constitutional obese, cooperative - Routine HEENT Exam Head: Present: normocephalic, atraumatic Eye: Present: EOMI, PERRL, normal accommodation ENT: Present: mucous membranes moist, oropharynx clear - Routine Neck Exam Present: supple, full ROM, trachea midline - Routine Respiratory Exam Present: CTA bilaterally - Routine Cardiovascular Exam Present: RRR - Routine Abdominal Exam Present: soft, normoactive bowel sounds - Routine Extremities Exam Present: full ROM, pulses intact, normal capillary refill - Routine Skin Exam Present: intact, warm, normal turgor - Routine Neurological Exam AAOx 3 conversing and following commands Motor LEs 3/5 distally - Detailed Neurological Exam: Coma Scale Eye Opening: Spontaneous Verbal Response: Oriented Motor Response: Obey commands [place] Coma Scale Total: 15 - Routine Psychiatric Exam Present: normal affect, normal thought process, cooperative - Urinary Catheter Management Straight Cath placed during this visit: yes, but has since been removed by the nurse Reason for continuing: Not indwelling catheter Insertion date: 06/17/18 Insertion time: 02:45 Removal date: 06/17/18 Removal time: 03:00 Indwelling Urethral Catheter Cath placed during this visit: yes, but has since been removed by the nurse Reason for continuing: Not indwelling catheter Insertion date: 06/12/18 Insertion time: 11:30 Removal date: 06/14/18 Removal time: 23:00 Suprapubic Cath placed during this visit: yes, but has since been removed by the nurse Reason for continuing: Continue criteria not met Insertion date: 06/15/18 Insertion time: 23:02 Removal date: 06/15/18 Removal time: 23:22 Assessment and Plan - Plan 78 yr. old female with generalized BLE weakness and "stocking" distribution numbness as well as history of Diabetes L-Spine MRI shows severe central canal stenosis at L4/5 and marked stenosis at L3/4, both with Gr.I anterolisthesis. On exam, patient has baseline neuropathy c/w Diabetic origin When she ambulates more than a few feet around her room , she describes her legs as becoming progressively which improves somewhat with leaning forward. Classic" shopping cart" type sign most c/w Neurogenic claudication. At the time of my examination she denies any bowel/bladder dysfunction and in fact, had just used the bathroom facilities without evidence of incontinence Recc: L-spine Xray series including flex/ext views to r/o instability. EMG/NCS of BLE to confirm longstanding diabetic neuropathy. Dexa scan to evaluate bone quality Will reassess with results for L3/4, L4/5 decompression and fusion. Will need medical clearance Will follow 06/09/2018 flexion/extension L-spine images reviewed by neurosurgery team which showed instability EMG/NCV BLE ordered to tip out worker - pending may need decompression, poss stabilization- L3-4, L4-5 medical clearance for surgery will continue follow 06/10/2018 for EMG/NCV of BLE with Dr. Jenkins this morning, appreciate help follow up results further recommendations to follow, 06/11/2018 EMG results reviewed by neurosurgery team, treatment options were again discussed with the patient - conservative management vs surgical decompression of lumbar stenosis, patient wishes to proceed with surgery she has been cleared by medicine for surgical procedure NPO tonight after midnight, OR tomorrow for L3-4, L4-5 decompressive laminectomy and posterior fusion with Dr. 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 [place] and IV Morphine PRN f/u CT Lumbar spine today, cont lumbar draining change surgical dressing tomorrow PT, mobilize out of bed today, LSO prn for comfort discontinue burns cath, dw nursing bladder scanning with post void residual and straight cath if needed will follow 06/14/2018 POD #2 s/p L3-4, L4-5 decompressive laminectomy with posterior fixation using transpedicular screws and rods po pain meds f/u CT Lumbar spine today, cont drain til tomorrow -- f/u H/H 8.0 recommend transfusion but patient did not want change surgical dressing tomorrow PT, mobilize out of bed today, LSO prn for comfort discontinue burns cath, dw nursing bladder scanning with post void residual and straight cath if needed will follow 06/15/2018 POD #3 s/p L3-4, L4-5 decompressive laminectomy with posterior fixation using transpedicular screws and rods Hgb 6 today-- transfuse 2 units PRBC d/c drain today continue mobilization PT/OT, check on Tony for this week required straight cath last night (has history of urinary retention) will follow 06/16/2018 Doing well POD #4 s/p L3-4, L4-5 decompressive laminectomy with posterior fixation using transpedicular screws and rods Incision clean, dry, saúl intact continue mobilization PT/OT, Rehab D/C Burns, I&O cath q 6hrs prn for no void Ready for transfer to Rehab from Neurosurgical standpoint will continue to follow
--- NOTE | 2018-06-17 14:11 | P.PNNS ---
Subjective Interval history: More today motivated today, Wants a walker and wants to go home, No events overnight Physical Exam Vital signs: Vital Signs 06/16/18 16:00 06/16/18 16:15 06/16/18 19:30 Temperature 100.6 F H 99.5 F Pulse Rate 91 H 98 H Respiratory Rate 20 18 Blood Pressure 180/76 H 170/78 H 129/66 Pulse Oximetry 99 96 06/16/18 21:55 06/17/18 00:00 06/17/18 04:00 Temperature 99.6 F 98.7 F Pulse Rate 78 92 H 71 Respiratory Rate 18 18 Blood Pressure 184/86 H 165/70 H Pulse Oximetry 98 97 06/17/18 08:00 06/17/18 11:56 Temperature 99.0 F 99.9 F H Pulse Rate 95 H 86 Respiratory Rate 18 18 Blood Pressure 168/77 H 186/84 H Pulse Oximetry 92 L 98 Intake & Output 06/16/18 06/17/18 06/17/18 18:59 06:59 18:59 Intake Total 120 / 120 Output Total 1000 / 1000 1700 / 1700 Balance -1000 / -1000 -1580 / -1580 Weight 74.8 kg Intake: Oral 120 / 120 Output: Urine 900 / 900 Urine Amount (Catheter) 1000 / 1000 800 / 800 Straight 1000 / 1000 800 / 800 Other: # Voids 1 Date of Last Bowel Movement 06/16/18 06/16/18 - Constitutional no acute distress, obese, cooperative - Routine HEENT Exam Head: Present: normocephalic, atraumatic Eye: Present: EOMI, PERRL, normal accommodation ENT: Present: mucous membranes moist, oropharynx clear - Routine Neck Exam Present: supple, full ROM, JVD, trachea midline - Routine Respiratory Exam Present: CTA bilaterally - Routine Cardiovascular Exam Present: RRR - Routine Abdominal Exam Present: soft, normoactive bowel sounds - Routine Skin Exam Present: intact, warm, normal turgor - Routine Neurological Exam AAOx 3 conversing and following commands Motor LEs 3/5 distally - Detailed Neurological Exam: Coma Scale Eye Opening: Spontaneous Verbal Response: Oriented Motor Response: Obey commands Delphine Coma Scale Total: 15 - Routine Psychiatric Exam Present: normal affect, normal thought process, cooperative - Urinary Catheter Management Straight Cath placed during this visit: yes, but has since been removed by the nurse Reason for continuing: Not indwelling catheter Insertion date: 06/17/18 Insertion time: 02:45 Removal date: 06/17/18 Removal time: 03:00 Indwelling Urethral Catheter Cath placed during this visit: yes, but has since been removed by the nurse Reason for continuing: Not indwelling catheter Insertion date: 06/12/18 Insertion time: 11:30 Removal date: 06/14/18 Removal time: 23:00 Suprapubic Cath placed during this visit: yes, but has since been removed by the nurse Reason for continuing: Continue criteria not met Insertion date: 06/15/18 Insertion time: 23:02 Removal date: 06/15/18 Removal time: 23:22 Assessment and Plan - Plan 78 yr. old female with generalized BLE weakness and "stocking" distribution numbness as well as history of Diabetes L-Spine MRI shows severe central canal stenosis at L4/5 and marked stenosis at L3/4, both with Gr.I anterolisthesis. On exam, patient has baseline neuropathy c/w Diabetic origin When she ambulates more than a few feet around her room , she describes her legs as becoming progressively which improves somewhat with leaning forward. Classic" shopping cart" type sign most c/w Neurogenic claudication. At the time of my examination she denies any bowel/bladder dysfunction and in fact, had just used the bathroom facilities without evidence of incontinence Recc: L-spine Xray series including flex/ext views to r/o instability. EMG/NCS of BLE to confirm longstanding diabetic neuropathy. Dexa scan to evaluate bone quality Will reassess with results for L3/4, L4/5 decompression and fusion. Will need medical clearance Will follow 06/09/2018 flexion/extension L-spine images reviewed by neurosurgery team which showed instability EMG/NCV BLE ordered to test borer - pending may need decompression, poss stabilization- L3-4, L4-5 medical clearance for surgery will continue follow 06/10/2018 for EMG/NCV of BLE with Dr. Jenkins this morning, appreciate help follow up results further recommendations to follow, 06/11/2018 EMG results reviewed by neurosurgery team, treatment options were again discussed with the patient - conservative management vs surgical decompression of lumbar stenosis, patient wishes to proceed with surgery she has been cleared by medicine for surgical procedure NPO tonight after midnight, OR tomorrow for L3-4, L4-5 decompressive laminectomy and posterior fusion with Dr. 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, cont [place] and IV Morphine PRN f/u CT Lumbar spine today, cont lumbar draining change surgical dressing tomorrow PT, mobilize out of bed today, LSO prn for comfort discontinue burns cath, dw nursing bladder scanning with post void residual and straight cath if needed will follow 06/14/2018 POD #2 s/p L3-4, L4-5 decompressive laminectomy with posterior fixation using transpedicular screws and rods po pain meds f/u CT Lumbar spine today, cont drain til tomorrow -- f/u H/H 8.0 recommend transfusion but patient did not want change surgical dressing tomorrow PT, mobilize out of bed today, LSO prn for comfort discontinue burns cath, dw nursing bladder scanning with post void residual and straight cath if needed will follow 06/15/2018 POD #3 s/p L3-4, L4-5 decompressive laminectomy with posterior fixation using transpedicular screws and rods Hgb 6 today-- transfuse 2 units PRBC d/c drain today continue mobilization PT/OT, check on Tony for this week required straight cath last night (has history of urinary retention) will follow 06/16/2018 Doing well POD #4 s/p L3-4, L4-5 decompressive laminectomy with posterior fixation using transpedicular screws and rods Incision clean, dry, saúl intact continue mobilization PT/OT, Rehab D/C Burns, I&O cath q 6hrs prn for no void Ready for transfer to Rehab from Neurosurgical standpoint will continue to follow 06/17/2018 Doing well POD #5 s/p L3-4, L4-5 decompressive laminectomy with posterior fixation using transpedicular screws and rods Incision clean, dry, saúl intact continue mobilization PT/OT, Rehab D/C Burns, I&O cath q 6hrs prn for no void Transfer to Rehab from Neurosurgical standpoint when bed available Sutures out in 10 days. will sign off and be available as needed
--- NOTE | 2018-06-17 15:10 | MP ---
cc: Charlie Leon MD DATE OF OPERATION: 06/12/2018 PREOPERATIVE DIAGNOSES: L3-L4, L4-L5 spinal stenosis and grade 1 spondylolisthesis. POSTOPERATIVE DIAGNOSES: L3-L4, L4-L5 spinal stenosis and grade 1 spondylolisthesis. PROCEDURES: L3-L4, L4-L5 decompression and fusion with spinal instrumentation and neuromonitoring. ANESTHESIA: General endotracheal. SURGEON: Charlie Leon MD PROBE OPERATOR: Kermit Armendariz MD ESTIMATED BLOOD LOSS: Less than 450 mL. PATHOLOGY: None sent. CONDITION: Back to recovery room, extubated, awake, and alert, following commands. No change from preoperative state. INDICATIONS: The patient is a pleasant 78-year-old female who presented to [facility] ED with complaints of generalized weakness, worsening over the last several weeks with urinary frequency. She reportedly has progressive weakness, unable to walk on her own anymore. She denies focal weakness as well as bowel and bladder dysfunction. On initial admission there was a certain concern for the urinary incontinence. On my exam she had some distal bilateral lower extremity weakness as well as decreased sensation to light touch and pinprick below the knees in a stocking distribution, intermittently feeling like a "pins and needle sensation." Gait is slow with shuffling with a walker with a preferred position bent over forward flexed at the waist. She says that this improves her back pain as well as allows her to walk somewhat better. Further questioning reveals that she has significant neurogenic claudication. EMG and nerve conduction studies of both lower extremities confirm a diabetic neuropathy. Given the patient's severe stenosis at L3-L4 and particular L4-L5 and the findings and neurogenic claudication, which was debilitating, would not allow her to walk more than a few feet before her legs became substantially number murmur. I had an extensive discussion with the patient regarding surgical intervention. I offered her an L3-4, L4-5 decompression and fusion and spinal instrumentation. I discussed risks, benefits, and options with her. They include, but are not limited to infection, CSF leak, nerve root injury, bowel or bladder dysfunction, failure to relieve symptoms, exacerbation of her symptoms, hemorrhage, reoperation, stroke, and possibility of were all explained. The patient indicated that she understood and wished for us to proceed. Informed consent was given. All questions were answered today. PROCEDURE IN DETAIL: The patient was taken to the operating room from the holding room and after peripheral IVs were placed she was endotracheally intubated. General endotracheal anesthesia then ensued. She was then placed on the operating table in the prone position with all pressure points padded. The lumbosacral region of the spine was then shaved, prepped and draped in usual sterile fashion. A sterile surgical marking pen was used to outline an incision in the midline extending from approximately the spinous process of L2-S1. This was infiltrated with 20 mL of 1% lidocaine with epinephrine. Next, a #10 blade was brought in the field, cutting sharply down to the lumbodorsal fascia. Hemostasis achieved with bipolar cautery device. The fascia was then incised with a Bovie electrocautery and Srinivasan periosteal elevators sweeping the paraspinal muscles off the spinous process and lamina bilaterally. Hemostasis achieved with bipolar electrocautery and Surgiflo. Several retractors were placed at each pole of the incision. We brought the fluoroscope in the field to confirm that we were indeed at the L3-4 interspace. Then, using K-wires as pedicle markers in anticipation of possibly having secure her spinal hardware with cement, we used the K-wires as pedicle markers. Using the Brenden fenestrated screw system, beginning on the right L3, L4 and L5. K-wires were placed. The pedicles were appropriately identified under direct AP and lateral fluoroscopy. Pedicles were tapped at each level uneventfully. Brenden fenestrated screws were placed uneventfully at L3 and L4 on the right after being probed with the monitoring probe to check for end electrical breach of the pedicle, which none was found. The right L3-L4 screws were placed uneventfully. These were then again, tested with the probe and there was found to be no physical or electrical evidence of pedicle breach. We then turned our attention to tap the right L5 pedicle deeper when the Brenden pedicle TAP broke. A small amount of bony resection dissection around the tap with the high-speed air drill and 2 mm of matchstick allowed us to gain purchase with a Brenden removal tool of the residual tap. The entire tap was removed uneventfully and the pedicle itself was probed with the pedicle feeler and another Brenden transfer screw was placed at this level. Similar steps in the procedure were taken at L3, L4, and L5 on the left. We then brought the microscope in the field we turned our attention to decompression, at which point the Georgina bone cutter was used to remove the spinous processes of L3, L4, and L5. The high speed air drill with a 5 mm cutting bur was then used to thin out the laminas of L3, L4, and L5. Using a combination of 2, 3 and 4 mm Kerrison punches, thickened ligamentum flavum, particularly L4-L5, was removed. Bilateral partial facetectomies and foraminotomies were performed at L3, L4, and L5 bilaterally. A blunt-tipped nerve hook was passed easily through the neural foramen at each level bilaterally as well. At this point, we decorticated the bone with a high speed air drill and 3 mm bur. A fusion mass consisting of stem cell product and patient's own morcellized bone was used as a fusion mass lying it out on the gutters. Prior to this, copious irrigation ensued with antibiotic irrigation, followed by Betadine followed by further antibiotic irrigation and then the mass was placed. A medium size Hemovac was placed in the epidural space and taken out through a separate stab incision. The incision was then closed in anatomic layers using 0 inverted interrupted Vicryl sutures for the deep muscle and fat in the lumbodorsal fascia, followed by 2-0 inverted interrupted Vicryl sutures for the subcutaneous tissue and dermis, followed by saúl for the skin. A 3-0 nylon was used to secure the drain at its exit site. Bacitracin ointment, Telfa, Tegaderm, and Mastisol for dressing. At the end of the operation all sponge and needle counts were correct. The patient tolerated the procedure well and was taken back to the recovery room, extubated, awake, alert, following commands, moving all 4 extremities well. No change in her preoperative state. MD MARY Kennedy/les , 02:23 PM , 02:40 PM JOHN
--- NOTE | 2018-06-17 16:24 | P.PNIM ---
Subjective Interval history: Patient is seen lying in bed. She tells me that she still does not feel like herself. She did have a bowel movement yesterday. Tells me she feels like she could go again. Still having struggles with urination. Also experiencing intermittent pain in her legs. Physical Exam Vital signs: Vital Signs 06/16/18 19:30 06/16/18 21:55 06/17/18 00:00 Temperature 99.5 F 99.6 F Pulse Rate 98 H 78 92 H Respiratory Rate 18 18 Blood Pressure 129/66 184/86 H Pulse Oximetry 96 98 06/17/18 04:00 06/17/18 08:00 06/17/18 11:56 Temperature 98.7 F 99.0 F 99.9 F H Pulse Rate 71 95 H 86 Respiratory Rate 18 18 18 Blood Pressure 165/70 H 168/77 H 186/84 H Pulse Oximetry 97 92 L 98 Intake & Output 06/16/18 06/17/18 06/17/18 18:59 06:59 18:59 Intake Total 120 / 120 Output Total 1000 / 1000 1700 / 1700 Balance -1000 / -1000 -1580 / -1580 Weight 74.8 kg Intake: Oral 120 / 120 Output: Urine 900 / 900 Urine Amount (Catheter) 1000 / 1000 800 / 800 Straight 1000 / 1000 800 / 800 Other: # Voids 1 Date of Last Bowel Movement 06/16/18 06/16/18 06/16/18 Narrative: GENERAL: Well-nourished, well-developed patient, no apparent distress SKIN: Warm and dry. CARDIOVASCULAR: Regular rate and rhythm. RESPIRATORY: No accessory muscle use. Clear to auscultation. Breath sounds equal bilaterally. GASTROINTESTINAL: Abdomen soft, non-tender, nondistended. No suprapubic tenderness. Active bowel sounds. MUSCULOSKELETAL: Extremities without clubbing, cyanosis, or edema. No obvious deformities. NEUROLOGICAL: Awake and alert. No obvious cranial nerve deficits. Weakness to both lower extremities. Decreased sensation to both feet. PSYCHIATRIC: Appropriate, cooperative Urinary Catheter Management Straight: Cath placed during this visit: yes, but has since been removed by the nurse Reason for continuing: Not indwelling catheter Insertion date: 06/17/18 Insertion time: 02:45 Removal date: 06/17/18 Removal time: 03:00 Indwelling Urethral Catheter: Cath placed during this visit: yes, but has since been removed by the nurse Reason for continuing: Not indwelling catheter Insertion date: 06/12/18 Insertion time: 11:30 Removal date: 06/14/18 Removal time: 23:00 Suprapubic: Cath placed during this visit: yes, but has since been removed by the nurse Reason for continuing: Continue criteria not met Insertion date: 06/15/18 Insertion time: 23:02 Removal date: 06/15/18 Removal time: 23:22 Results Labs CBC & Chem 7: 06/16/18 05:19 06/16/18 05:19 Procedures Procedures: S/P s/p L3-4, L4-5 decompressive laminectomy with posterior fixation using transpedicular screws and rods 06/14 Assessment and Plan Plan 78-year-old female with a history of type 2 diabetes and spinal stenosis presented to the ER following 2 months of progressive weakness of her bilateral legs and frequent falls. She has a history of bilateral neuropathy, uncertain if this is related to diabetes or spinal stenosis. Severe spinal stenosis, L3-L4, L4-L5 grade 1 anterolisthesis with instability of LS Radiculopathy; Hx of neuropathy, spinal stenosis. Had been offered lumbar surgery in the past by orthopedic surgery -Evaluated per Dr. 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 Was discontinued per surgery. -continue with PT, inc. mobility as tolerated. -TLSO brace when out of bed -Discussed with anjelica Bradshaw to restart heparin for DVT proph. Post op anemia -Baseline hemoglobin 1011. -Hemoglobin dropped to 6.8 on 06/15/18 and patient was given PRBC x 2 -post transfusion HH 10.3/31.2 Leukocytosis, WBC 14.5, likely secondary to surgery. -Initially no fever and WBCs normalized -Not currently on antibiotics 06/17: mild elevation in temps with T-max 100.6. Will repeat CBC. UA ordered. Urinary retention Continue to bladder scan and straight cath as needed -Increase activity as tolerated -continue Urecholine 10 mg p.o. 3 times daily -Possibly exacerbated by constipation which has now been resolved Fall with right hip pain, MRI showed no evidence of fracture History of frequent falls with gait instability Peripheral neuropathy Continue with physical therapy -Fall precautions -debilitated post op, enc. to continue working with PT Type 2 diabetes Peripheral neuropathy Hemoglobin A1c 6.1 Continue diabetic diet Continue with Accu-Cheks and insulin per sliding scale Blood sugars elevated, up to 300s. Resume glipizide and metformin Hypothyroidism -TSH was noted elevated Started on levothyroxine -Needs to follow-up as outpatient with PCP, have repeat TSH in 6-week Hypertension -Continue Clonidine PRN -BP elevated, will resume Lisinopril 20 mg po daily -06/17: BP not controlled with lisinopril alone; will add Norvasc DVT Prophylaxis-on Heparin subcu Code Status: Full code Discharge Planning: Cleared for discharge by neurosurgery. May be able to discharge tomorrow if afebrile with normal white count Progress Note: Quality VTE Deep Vein Thrombosis/Pulmonary Embolism Present on Admission: No
[2018-06-17] MEDS: amLODIPine 5 MG Tablet PO SCH (16:53)
[2018-06-17 18:53] LABS: Bacteria,Urine Rare /hpf; Bilirubin,Urine Negative (Negative); Clarity,Urine Hazy (Clear); Color,Urine Yellow (Yellw/Straw); Glucose,Urine (UA) Negative (Negative); Leukocyte Esterase,Urine Trace (Negative); Mucus,Urine Few /lpf (Occasional); Nitrite,Urine Negative (Negative); Specific Gravity,Urine 1.017 (1.002-1.035); Squamous Epithelial Cell,Urine <1 /hpf (0-5)
[2018-06-17 19:10] LABS: Baso # (Auto) 0.1 th/mm3 (0.0-0.2); Baso % (Auto) 0.8 % (0.0-2.0); Eos % (Auto) 0.3 % (0.0-4.0); Hematocrit 32.3 % (35.0-46.0); Hemoglobin 10.3 gm/dL (11.6-15.3); Lymph # (Auto) 2.1 th/mm3 (1.0-4.8); Lymph % (Auto) 16.2 % (9.0-44.0); Mean Corpuscular HGB Conc 32.1 % (32.0-36.0); Mean Corpuscular Hemoglobin 26.5 pg (27.0-34.0); Mean Corpuscular Volume 82.8 fL (80.0-100.0); Mean Platelet Volume 10.2 fL (7.0-11.0); Mono # (Auto) 1.2 th/mm3 (0.0-0.9); Mono % (Auto) 9.4 % (0.0-8.0); Neut # (Auto) 9.6 th/mm3 (1.8-7.7); Neut % (Auto) 73.3 % (16.0-70.0); Platelet Count 296 th/mm3 (150-450); Red Cell Distribution Width 13.6 % (11.6-17.2); White Blood Count 13.1 th/mm3 (4.0-11.0)
[2018-06-18] MEDS: Levothyroxine 75 MCG Tablet PO SCH (05:08)
[2018-06-18] MEDS: Heparin - SQ 10,000 UNITS/ML Vial SQ SCH ×2 (05:08→18:42)
[2018-06-18] MEDS: amLODIPine 5 MG Tablet PO SCH (10:38)
[2018-06-18] MEDS: Senna/Docusate Sodium 8.6/50 MG Tablet PO SCH ×2 (10:39→22:46)
[2018-06-18] MEDS: glipiZIDE 5 MG Tablet PO SCH ×3 (10:39→18:00)
[2018-06-18] MEDS: Insulin NovoLOG Aspart Correctional Sugar Inj SQ SCH ×4 (10:40→22:45)
--- NOTE | 2018-06-18 15:12 | P.PNIM ---
Subjective Interval history: Patient seen sitting in bed. Family is at bedside. She continues to complain about leg pain and tells me it is unchanged from what she had previously. No new pain, numbness or tingling. She also continues to complain of being unable to urinate. No fever or chills. No nausea or vomiting. No longer constipated per nursing. Physical Exam Vital signs: Vital Signs 06/17/18 17:03 06/17/18 20:00 06/17/18 20:40 Temperature 99.4 F 98.6 F Pulse Rate 95 H 78 82 Respiratory Rate 16 18 Blood Pressure 160/50 H 158/67 H Pulse Oximetry 95 97 06/18/18 00:00 06/18/18 04:00 06/18/18 08:00 Temperature 98.8 F 99.2 F 98.6 F Pulse Rate 87 89 84 Respiratory Rate 18 18 18 Blood Pressure 164/70 H 177/74 H 175/77 H Pulse Oximetry 93 L 95 97 06/18/18 12:00 Temperature 99.5 F Pulse Rate 91 H Respiratory Rate 18 Blood Pressure 185/79 H Pulse Oximetry 96 Intake & Output 06/17/18 06/18/18 06/18/18 18:59 06:59 18:59 Intake Total 50 / 50 Output Total 220 / 220 900 / 900 Balance -220 / -220 -850 / -850 Weight 72.4 kg Intake: Oral 50 / 50 Output: Urine Amount (Catheter) 220 / 220 900 / 900 Straight 220 / 220 900 / 900 Other: Date of Last Bowel Movement 06/16/18 06/16/18 # Bowel Movements 0 Narrative: GENERAL: Well-nourished, well-developed patient, no apparent distress SKIN: Warm and dry. CARDIOVASCULAR: Regular rate and rhythm. RESPIRATORY: No accessory muscle use. Clear to auscultation. Breath sounds equal bilaterally. GASTROINTESTINAL: Abdomen soft, non-tender, nondistended. No suprapubic tenderness. Active bowel sounds. MUSCULOSKELETAL: Extremities without clubbing, cyanosis, or edema. No obvious deformities. NEUROLOGICAL: Awake and alert. No obvious cranial nerve deficits. Weakness to both lower extremities. Decreased sensation to both feet. PSYCHIATRIC: Appropriate, cooperative Urinary Catheter Management Straight: Cath placed during this visit: yes, but has since been removed by the nurse Reason for continuing: Decision to DC catheter Insertion date: 06/18/18 Insertion time: 01:25 Removal date: 06/18/18 Removal time: 01:40 Indwelling Urethral Catheter: Cath placed during this visit: yes, but has since been removed by the nurse Reason for continuing: Not indwelling catheter Insertion date: 06/12/18 Insertion time: 11:30 Removal date: 06/14/18 Removal time: 23:00 Suprapubic: Cath placed during this visit: yes, but has since been removed by the nurse Reason for continuing: Continue criteria not met Insertion date: 06/15/18 Insertion time: 23:02 Removal date: 06/15/18 Removal time: 23:22 Results Labs CBC & Chem 7: 06/17/18 18:51 06/16/18 05:19 Labs: Microbiology 06/17/18 18:15 Clean Catch Urine Urine Culture - Preliminary gram negative rods Procedures Procedures: S/P s/p L3-4, L4-5 decompressive laminectomy with posterior fixation using transpedicular screws and rods 06/14 Assessment and Plan Plan 78-year-old female with a history of type 2 diabetes and spinal stenosis presented to the ER following 2 months of progressive weakness of her bilateral legs and frequent falls. She has a history of bilateral neuropathy, uncertain if this is related to diabetes or spinal stenosis. Severe spinal stenosis, L3-L4, L4-L5 grade 1 anterolisthesis with instability of LS Radiculopathy; Hx of neuropathy, spinal stenosis. Had been offered lumbar surgery in the past by orthopedic surgery -Evaluated per Dr. 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 Was discontinued per surgery. -continue with PT, inc. mobility as tolerated. -TLSO brace when out of bed -Discussed with anjelica Bradshaw to restart heparin for DVT proph. Hemorrhagic anemia; resolved -Baseline hemoglobin 1011. -Hemoglobin dropped to 6.8 on 06/15/18 and patient was given PRBC x 2 -post transfusion HH 10.3/31.2 Leukocytosis, WBC 14.5, likely secondary to surgery. -Initially no fever and WBCs normalized -Not currently on antibiotics 06/17: mild elevation in temps with T-max 100.6. Will repeat CBC. UA ordered. -06/18: Now afebrile. WBCs slight increased to 13.1. Urine indicates culture; positive blood. Uremia likely from catheter traumatization. We will start empiric Rocephin; follow-up cultures. Order ultrasound. Urinary retention Continue to bladder scan and straight cath as needed -Increase activity as tolerated -continue Urecholine 10 mg p.o. 3 times daily -Possibly exacerbated by constipation which has now been resolved Fall with right hip pain, MRI showed no evidence of fracture History of frequent falls with gait instability Peripheral neuropathy Continue with physical therapy -Fall precautions -debilitated post op, enc. to continue working with PT Type 2 diabetes Peripheral neuropathy Hemoglobin A1c 6.1 Continue diabetic diet Continue with Accu-Cheks and insulin per sliding scale Blood sugars elevated, up to 300s. Resume glipizide and metformin Hypothyroidism -TSH was noted elevated Started on levothyroxine -Needs to follow-up as outpatient with PCP, have repeat TSH in 6-week Hypertension -Continue Clonidine PRN -BP elevated, will resume Lisinopril 20 mg po daily -06/17: BP not controlled with lisinopril alone; will add Norvasc -06/18: BP remains high. Increase lisinopril to 40 daily; continue Norvasc. Continue as needed clonidine. DVT Prophylaxis-on Heparin subcu Code Status: Full code Discharge Planning: Cleared for discharge by neurosurgery. Pending placement. Progress Note: Quality VTE Deep Vein Thrombosis/Pulmonary Embolism Present on Admission: No
--- NOTE | 2018-06-18 16:16 | US ---
EXAM DATE: 06/18/2018 3:28 PM EST AGE/SEX: 78 years / Female INDICATIONS: Flank pain. Urinary retention. CLINICAL DATA: This is the patient's initial encounter. Patient reports that signs and symptoms have been present for 1 day and indicates a pain score of 1/10. MEDICAL/SURGICAL HISTORY: Hypertension. Diabetes mellitus type II. Hypothyroidism. Spinal st enosis. Bilateral neuropathy. . L3-4, L4-5 decompressive laminectomy with posterior fixation. Small bowel resection. COMPARISON: No prior exams available for comparison. MEASUREMENTS: Right Kidney:__9.1 x 5.7 x 4.1 cm Left Kidney:__11.6 x 5.3 x 5.3 cm FINDINGS: Right Kidney: Normal echogenicity and cortical thickness. No mass or hydronephrosis. Left Kidney: Normal echogenicity and cortical thickness. No mass or hydronephrosis. Bladder: Urinary bladder is distended measuring 730 cc. Patient unable to void. Other: None. CONCLUSION: 1. Distended urinary bladder. 2. Otherwise unremarkable renal sonogram. Electronically signed by: Jonas Anaya MD Board Certified Radiologist 06/18/2018 4:14 PM EST
[2018-06-19] MEDS: Heparin - SQ 10,000 UNITS/ML Vial SQ SCH ×2 (05:49→16:58)
[2018-06-19] MEDS: Levothyroxine 75 MCG Tablet PO SCH (05:50)
[2018-06-19] MEDS: amLODIPine 5 MG Tablet PO SCH (09:54)
[2018-06-19] MEDS: glipiZIDE 5 MG Tablet PO SCH ×3 (09:55→17:51)
[2018-06-19] MEDS: Senna/Docusate Sodium 8.6/50 MG Tablet PO SCH ×2 (09:55→20:21)
[2018-06-19] MEDS: Lisinopril 20 MG Tablet PO SCH (09:56)
[2018-06-19] MEDS: Insulin NovoLOG Aspart Correctional Sugar Inj SQ SCH ×4 (09:56→21:00)
--- NOTE | 2018-06-19 16:10 | P.PNIM ---
Subjective Interval history: Patient seen lying in bed. She tells me she feels much better since Suero catheter has been placed. Tells me she is "full of urine- they have had to empty the bag 3 times". Abdominal pressure has relieved and she feels like her leg pain is better. She is very anxious to discharge as soon as possible. Physical Exam Vital signs: Vital Signs 06/18/18 20:00 06/18/18 20:19 06/19/18 04:11 Temperature 98.6 F 98.6 F Pulse Rate 90 87 Respiratory Rate 17 17 17 Blood Pressure 176/77 H 151/66 H Pulse Oximetry 92 L 93 L 06/19/18 08:00 06/19/18 12:00 Temperature 98.7 F 98.2 F Pulse Rate 84 87 Respiratory Rate 19 20 Blood Pressure 148/94 H 156/97 H Pulse Oximetry 92 L 98 Intake & Output 06/18/18 06/19/18 06/19/18 18:59 06:59 18:59 Intake Total 580 / 580 940 / 940 Output Total 800 / 800 450 / 450 Balance -220 / -220 490 / 490 Weight 71.1 kg Intake: IV 100 / 100 100 / 100 Rocephin Inj 1,000 MG In NS Inj 100 / 100 100 / 100 100 ML @ 200 mls/hr IV.SIG Q12H [facility] Rx#:[id number] Oral 480 / 480 840 / 840 Output: Urine Amount (Catheter) 800 / 800 450 / 450 Indwelling Urethral Catheter 800 / 800 450 / 450 Other: Date of Last Bowel Movement 06/16/18 06/18/18 # Bowel Movements 2 Narrative: GENERAL: Well-nourished, well-developed patient, no apparent distress SKIN: Warm and dry. CARDIOVASCULAR: Regular rate and rhythm. RESPIRATORY: No accessory muscle use. Clear to auscultation. Breath sounds equal bilaterally. GASTROINTESTINAL: Abdomen soft, non-tender, nondistended. No suprapubic tenderness. Active bowel sounds. Suero catheter in place with clear yellow urine. MUSCULOSKELETAL: Extremities without clubbing, cyanosis, or edema. No obvious deformities. NEUROLOGICAL: Awake and alert. No obvious cranial nerve deficits. Weakness to both lower extremities. Decreased sensation to both feet. Urinary Catheter Management Straight: Cath placed during this visit: yes, but has since been removed by the nurse Reason for continuing: Chronic Urinary Retention Insertion date: 06/18/18 Insertion time: 01:25 Removal date: 06/18/18 Removal time: 01:40 Indwelling Urethral Catheter: Cath placed during this visit: yes, but has since been removed by the nurse Reason for continuing: Chronic Urinary Retention Insertion date: 06/18/18 Insertion time: 16:00 Removal date: 06/14/18 Removal time: 23:00 Suprapubic: Cath placed during this visit: yes, but has since been removed by the nurse Reason for continuing: Continue criteria not met Insertion date: 06/15/18 Insertion time: 23:02 Removal date: 06/15/18 Removal time: 23:22 Results Labs CBC & Chem 7: 06/17/18 18:51 06/16/18 05:19 Labs: Microbiology 06/17/18 18:15 Clean Catch Urine Urine Culture - Final Klebsiella pneumoniae Imaging Imaging: Impressions Abdomen/Bladder Ultrasound 06/18/18 00:00 CONCLUSION: 1. Distended urinary bladder. 2. Otherwise unremarkable renal sonogram. Procedures Procedures: S/P s/p L3-4, L4-5 decompressive laminectomy with posterior fixation using transpedicular screws and rods 06/14 Assessment and Plan Plan 78-year-old female with a history of type 2 diabetes and spinal stenosis presented to the ER following 2 months of progressive weakness of her bilateral legs and frequent falls. She has a history of bilateral neuropathy, uncertain if this is related to diabetes or spinal stenosis. Severe spinal stenosis, L3-L4, L4-L5 grade 1 anterolisthesis with instability of LS Radiculopathy; Hx of neuropathy, spinal stenosis. Had been offered lumbar surgery in the past by orthopedic surgery -Evaluated per Dr. 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 Was discontinued per surgery. -continue with PT, inc. mobility as tolerated. -TLSO brace when out of bed -Discussed with Dr. Valderrama, anjelica to restart heparin for DVT proph. Hemorrhagic anemia; resolved -Baseline hemoglobin 1011. -Hemoglobin dropped to 6.8 on 06/15/18 and patient was given PRBC x 2 -post transfusion HH 10.3/31.2 Leukocytosis, WBC 14.5, likely secondary to surgery. -Initially no fever and WBCs normalized -Not currently on antibiotics UTI Urinary retention 06/17: mild elevation in temps with T-max 100.6. Will repeat CBC. UA ordered. -06/18: Now afebrile. WBCs slight increased to 13.1. Urine indicates culture; positive blood. Uremia likely from catheter traumatization. We will start empiric Rocephin; follow-up cultures. Ultrasound indicated over 700 cc; Suero placed. -06/19: Now afebrile. Cultures pansensitive. Will discharge on orals. Plan on removing Suero in a.m. -Increase activity as tolerated -continue Urecholine 10 mg p.o. 3 times daily -Possibly exacerbated by constipation which has now been resolved Fall with right hip pain, MRI showed no evidence of fracture History of frequent falls with gait instability Peripheral neuropathy Continue with physical therapy -Fall precautions -debilitated post op, enc. to continue working with PT Type 2 diabetes Peripheral neuropathy Hemoglobin A1c 6.1 Continue diabetic diet Continue with Accu-Cheks and insulin per sliding scale Blood sugars elevated, up to 300s. Resume glipizide and metformin Hypothyroidism -TSH was noted elevated Started on levothyroxine -Needs to follow-up as outpatient with PCP, have repeat TSH in 6-week Hypertension -Continue Clonidine PRN -BP elevated, will resume Lisinopril 20 mg po daily -06/17: BP not controlled with lisinopril alone; will add Norvasc -06/18: BP remains high. Increase lisinopril to 40 daily; continue Norvasc. Continue as needed clonidine. -06/19 BP improved DVT Prophylaxis-on Heparin subcu Code Status: Full code Discharge Planning: Cleared for discharge by neurosurgery. Pending placement. Progress Note: Quality VTE Deep Vein Thrombosis/Pulmonary Embolism Present on Admission: No
[2018-06-20] MEDS: Levothyroxine 75 MCG Tablet PO SCH (06:29)
[2018-06-20] MEDS: Heparin - SQ 10,000 UNITS/ML Vial SQ SCH ×2 (06:47→16:46)
[2018-06-20] MEDS: glipiZIDE 5 MG Tablet PO SCH ×3 (08:36→17:41)
[2018-06-20] MEDS: amLODIPine 5 MG Tablet PO SCH (08:37)
[2018-06-20] MEDS: Lisinopril 20 MG Tablet PO SCH (08:37)
[2018-06-20] MEDS: Senna/Docusate Sodium 8.6/50 MG Tablet PO SCH (08:37)
[2018-06-20] MEDS: Insulin NovoLOG Aspart Correctional Sugar Inj SQ SCH ×3 (08:38→16:47)
--- NOTE | 2018-06-20 09:40 | P.PNIM ---
Subjective Interval history: Patient is seen sitting on side of bed. Reports that she feels good and is looking forward to being discharged today. No fevers or chills. No nausea vomiting or diarrhea. No further constipation. Nursing reports no adverse events. Physical Exam Vital signs: Vital Signs 06/19/18 12:00 06/19/18 19:56 06/19/18 20:00 Temperature 98.2 F 97.8 F Pulse Rate 87 95 H Respiratory Rate 20 18 18 Blood Pressure 156/97 H 138/66 Pulse Oximetry 98 96 06/20/18 00:00 06/20/18 04:00 06/20/18 08:00 Temperature 98.1 F 98.2 F 98.9 F Pulse Rate 77 89 95 H Respiratory Rate 20 18 20 Blood Pressure 157/72 H 167/75 H 163/79 H Pulse Oximetry 97 96 97 Intake & Output 06/19/18 06/20/18 06/20/18 18:59 06:59 18:59 Intake Total 100 / 100 820 / 820 Output Total 1000 / 1000 Balance 100 / 100 -180 / -180 Weight 71.1 kg Intake: IV 100 / 100 100 / 100 Rocephin Inj 1,000 MG In NS Inj 100 / 100 100 / 100 100 ML @ 200 mls/hr IV.SIG Q12H [facility] Rx#:[id number] Oral 720 / 720 Output: Urine Amount (Catheter) 1000 / 1000 Indwelling Urethral Catheter 1000 / 1000 Other: Date of Last Bowel Movement 06/19/18 06/19/18 06/16/18 Narrative: GENERAL: Well-nourished, well-developed patient, no apparent distress SKIN: Warm and dry. CARDIOVASCULAR: Regular rate and rhythm. RESPIRATORY: No accessory muscle use. Clear to auscultation. Breath sounds equal bilaterally. GASTROINTESTINAL: Abdomen soft, non-tender, nondistended. No suprapubic tenderness. Active bowel sounds. Suero catheter in place with clear yellow urine. MUSCULOSKELETAL: Extremities without clubbing, cyanosis, or edema. No obvious deformities. NEUROLOGICAL: Awake and alert. No obvious cranial nerve deficits. Weakness to both lower extremities. Decreased sensation to both feet. Urinary Catheter Management Straight: Cath placed during this visit: yes, but has since been removed by the nurse Reason for continuing: Acute urinary retention Insertion date: 06/18/18 Insertion time: 01:25 Removal date: 06/18/18 Removal time: 01:40 Indwelling Urethral Catheter: Cath placed during this visit: yes, but has since been removed by the nurse Reason for continuing: Chronic Urinary Retention Insertion date: 06/18/18 Insertion time: 16:00 Removal date: 06/14/18 Removal time: 23:00 Suprapubic: Cath placed during this visit: yes, but has since been removed by the nurse Reason for continuing: Continue criteria not met Insertion date: 06/15/18 Insertion time: 23:02 Removal date: 06/15/18 Removal time: 23:22 Results Labs CBC & Chem 7: 06/17/18 18:51 06/16/18 05:19 Labs: Microbiology 06/17/18 18:15 Clean Catch Urine Urine Culture - Final Klebsiella pneumoniae Procedures Procedures: S/P s/p L3-4, L4-5 decompressive laminectomy with posterior fixation using transpedicular screws and rods 06/14 Assessment and Plan Plan 78-year-old female with a history of type 2 diabetes and spinal stenosis presented to the ER following 2 months of progressive weakness of her bilateral legs and frequent falls. She has a history of bilateral neuropathy, uncertain if this is related to diabetes or spinal stenosis. Severe spinal stenosis, L3-L4, L4-L5 grade 1 anterolisthesis with instability of LS Radiculopathy; Hx of neuropathy, spinal stenosis. Had been offered lumbar surgery in the past by orthopedic surgery -Evaluated per Dr. 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 Was discontinued per surgery. -continue with PT, inc. mobility as tolerated. -TLSO brace when out of bed -Discussed with Dr. Valderrama, anjelica to restart heparin for DVT proph. Hemorrhagic anemia; resolved -Baseline hemoglobin 1011. -Hemoglobin dropped to 6.8 on 06/15/18 and patient was given PRBC x 2 -post transfusion HH 10.3/31.2 Leukocytosis, WBC 14.5, likely secondary to surgery. -Initially no fever and WBCs normalized -Not currently on antibiotics UTI Urinary retention 06/17: mild elevation in temps with T-max 100.6. Will repeat CBC. UA ordered. -06/18: Now afebrile. WBCs slight increased to 13.1. Urine indicates culture; positive blood. Uremia likely from catheter traumatization. We will start empiric Rocephin; follow-up cultures. Ultrasound indicated over 700 cc; Suero placed. -06/19: Now afebrile. Cultures pansensitive. Will discharge on cefuroxime. remove Suero this a.m. -Increase activity as tolerated -continue Urecholine 10 mg p.o. 3 times daily -Stop amlodipine as this may be exacerbating urinary retention -Possibly exacerbated by constipation which has now been resolved Fall with right hip pain, MRI showed no evidence of fracture History of frequent falls with gait instability Peripheral neuropathy Continue with physical therapy -Fall precautions -debilitated post op, enc. to continue working with PT Type 2 diabetes Peripheral neuropathy Hemoglobin A1c 6.1 Continue diabetic diet Continue with Accu-Cheks and insulin per sliding scale Blood sugars elevated, up to 300s. Resume glipizide and metformin Hypothyroidism -TSH was noted elevated Started on levothyroxine -Needs to follow-up as outpatient with PCP, have repeat TSH in 6-week Hypertension -Continue Clonidine PRN -BP elevated, will resume Lisinopril 20 mg po daily -06/17: BP not controlled with lisinopril alone; will add Norvasc -06/18: BP remains high. Increase lisinopril to 40 daily; continue Norvasc. Continue as needed clonidine. -06/19 BP improved -06/20 stop Norvasc due to possible exacerbation of urinary retention. Continue increased dose of lisinopril. DVT Prophylaxis-on Heparin subcu Code Status: Full code Discharge Planning: Cleared for discharge by neurosurgery. Will discharge today pending SNF acceptance Progress Note: Quality VTE Deep Vein Thrombosis/Pulmonary Embolism Present on Admission: No
--- NOTE | 2018-06-20 09:47 | P.DS ---
DS: Providers Date of admission: 06/06/18 13:22 Primary care physician: UNKNOWN Consults: 06/06/18 15:56 HUB Only Consult Order Routine Consulting Provider: Meche Mcgregor 06/07/18 11:30 HUB Only Consult Order Routine Consulting Provider: Briana Julio,Violet 06/08/18 12:08 Consult to Neurosurgery Routine Consulting Provider: Charlie Leon Reason for Consultation: 78F with inability to ambulate following pattern of increasing falls. She has a history of spinal stenosis and MRI was ordered which shows severe stenosis. Please evaluate and offer treatment options. Thanks. Notified:: Physician Spoke with:: Dr Leon Date Notified:: 06/08/18 Time Notified:: 12:19 Ordering Provider: GARY 06/08/18 15:18 Consult to Rehab Medicine Routine Consulting Provider: Meliza Jenkins Preferred Chief Warden:: Meliza Jenkins Reason for Consultation: EMG/NCS of BLE to r/o diabetic neuropathy Notified:: Service Spoke with:: Charmaine Date Notified:: 06/08/18 Time Notified:: 15:29 Ordering Provider: ALEJANDRO 06/09/18 10:59 HUB Only Consult Order Routine Consulting Provider: Meche Mcgregor Brief History from admission: 78-year-old female with a history of type 2 diabetes and spinal stenosis presents to the ER following 2 months of progressive weakness of her bilateral legs and frequent falls. She has a history of bilateral neuropathy, uncertain if this is related to diabetes or spinal stenosis. She was told by orthopedic surgery in the past that her back would require a back surgery. She denies having any imaging recently of her back. She complains of incontinence of the bladder and recent history of constipation. She has been a diabetic for 20 years. Other pertinent history may include that she had a bowel obstruction with partial small bowel resection. She was worked up in the ER and has no urinary tract infection. She denies any recent fevers or upper respiratory symptoms. She denies any cardiac conditions. She denies diarrhea, nausea, vomiting. DS: Summary 78-year-old female with a history of type 2 diabetes and spinal stenosis presented to the ER following 2 months of progressive weakness of her bilateral legs and frequent falls. She has a history of bilateral neuropathy, uncertain if this is related to diabetes or spinal stenosis. Severe spinal stenosis, L3-L4, L4-L5 grade 1 anterolisthesis with instability of LS -improved Radiculopathy; Hx of neuropathy, spinal stenosis. Had been offered lumbar surgery in the past by orthopedic surgery -Evaluated per Dr. Jenkins, EMG studies completed -s/p L3-4, L4-5 decompressive laminectomy with posterior fixation using transpedicular screws and rods -Neurosurgery has cleared for transfer to rehab; now signed off -Patient will need saúl/sutures removed in 10 days per neurosurgery report -TLSO brace when out of bed Hemorrhagic anemia; resolved -Baseline hemoglobin 1011. -Hemoglobin dropped to 6.8 on 06/15/18 and patient was given PRBC x 2 -post transfusion HH 10.3/31.2 UTI -acute; resolving Urinary retention -acute; resolved 06/17: mild elevation in temps with T-max 100.6. Will repeat CBC. UA ordered. -06/18: Now afebrile. WBCs slight increased to 13.1. Urine indicates culture; positive blood. Uremia likely from catheter traumatization. We will start empiric Rocephin; follow-up cultures. Ultrasound indicated over 700 cc; Suero placed. -06/19: Now afebrile. Cultures pansensitive. Will discharge on cefuroxime. remove Suero this a.m. -Increase activity as tolerated -continue Urecholine 10 mg p.o. 3 times daily -Stop amlodipine as this may be exacerbating urinary retention -Possibly exacerbated by constipation which has now been resolved Fall with right hip pain, MRI showed no evidence of fracture History of frequent falls with gait instability Peripheral neuropathy -chronic -Fall precautions -debilitated post op, enc. to continue working with PT -we will need discharge to rehab/SNF Type 2 diabetes-chronic; stable Peripheral neuropathy Hemoglobin A1c 6.1 Continue diabetic diet -Resume home glipizide and metformin Hypothyroidism -new diagnosis -TSH was noted elevated Started on levothyroxine -Needs to follow-up as outpatient with PCP, have repeat TSH in 6-week Hypertension -chronic, poorly controlled. -BP elevated, will resume Lisinopril 20 mg po daily -06/17: BP not controlled with lisinopril alone; will add Norvasc -06/18: BP remains high. Increase lisinopril to 40 daily; continue Norvasc. Continue as needed clonidine. -06/19 BP improved -06/20 stop Norvasc due to possible exacerbation of urinary retention. Continue increased dose of lisinopril. DVT prophylaxis while hospitalized: Heparin given Time Spent with Patient Total time spent providing and/or coordinating discharge services: Greater than 30 minutes Status at Discharge Functional status at discharge: uses cane/walker Overall status at discharge: patient is progressing back to baseline Quality: VTE Deep Vein Thrombosis/Pulmonary Embolism Present on Admission: No Exam Narrative Exam Narrative: GENERAL: Well-nourished, well-developed patient, no apparent distress SKIN: Warm and dry. CARDIOVASCULAR: Regular rate and rhythm. RESPIRATORY: No accessory muscle use. Clear to auscultation. Breath sounds equal bilaterally. GASTROINTESTINAL: Abdomen soft, non-tender, nondistended. No suprapubic tenderness. Active bowel sounds. MUSCULOSKELETAL: Extremities without clubbing, cyanosis, or edema. No obvious deformities. Surgical dressing to spine dry and intact. NEUROLOGICAL: Awake and alert. No obvious cranial nerve deficits. Weakness to both lower extremities. Decreased sensation to both feet. Results Procedures completed during hospitalization: S/P s/p L3-4, L4-5 decompressive laminectomy with posterior fixation using transpedicular screws and rods 06/14 Labs on day of discharge: Labs from last 24 hours 06/20/18 06/19/18 06/19/18 07:48 20:26 16:47 POC Glucose 139 H 85 117 H 06/19/18 12:08 POC Glucose 83 Impressions ITS Impressions Hip X-Ray 06/06/18 00:00 CONCLUSION: 2 thin linear lucencies projected over the intratrochanteric region and superior femoral neck of uncertain significance but raises the possibility of trabecular fractures. May consider further evaluation with MRI to include STIR sequences. Pelvis X-Ray 06/06/18 00:00 CONCLUSION: The hips are symmetric and intact. Chest X-Ray 06/06/18 09:45 CONCLUSION: The lungs are clear. Head CT 06/06/18 09:45 CONCLUSION: 1. Negative CT Head non contrast. 2. No evidence of acute infarct, hemorrhage, mass or edema. . Hip MRI 06/07/18 00:00 CONCLUSION: 1. Normal marrow signal in the right intertrochanteric region with no fracture. 2. Minimal degenerative change in the hips. Lumbar Spine MRI 06/07/18 00:00 CONCLUSION: 1. Severe central canal stenosis at L4-5 secondary to grade 1 anterospondylolisthesis degenerative change involving the facets. 2. Moderate central canal stenosis at L3-4 secondary to grade 1 anterospondylolisthesis, disc bulge and degenerative change involving the facet joints. 3. Bilateral foraminal stenosis at L4-5 and borderline foraminal stenosis at L3 -4. 4. Mild central canal stenosis at L2-3. Lumbar Spine X-Ray 06/12/18 00:00 CONCLUSION: Satisfactory operative appearance Lumbar Spine CT 06/14/18 10:07 CONCLUSION: 1. Status post laminectomies and transpedicular screw and naga fixation at L3- L5. Hardware is intact with hardware position described above. 2. Please see above for detailed description of each level. Abdomen/Bladder Ultrasound 06/18/18 00:00 CONCLUSION: 1. Distended urinary bladder. 2. Otherwise unremarkable renal sonogram. Discharge Plan Discharge Disposition Patient Disposition: Discharge to SNF Discharge Condition Condition: Stable Discharge Order Discharge Orders: Discharge Order (Routine); Ordered 06/20/18 Ordered By: Sheila Chi Discharge Details Anticipated Discharge Date: 06/16/18 Discharge Comment: Please AUDELIA Suero prior to discharge Physicians Team Primary Care Provider: UNKNOWN, Attending Provider: Melanie Reyes Other Providers: Meche Mcgregor ; [facility] ; Charlie Leon ; Meliza Jenkins Rxs /Orders / Referrals /Forms Prescriptions: New bethanechol chloride [Urecholine] 10 mg Tablet 10 mg PO TID Qty: 90 RF: 0 hydrocodone-acetaminophen 5-325 mg Tablet 1 tab PO Q4H PRN (Reason: Pain Scale 6 To 10) Qty: 18 RF: 0 cefuroxime axetil 250 mg Tablet 250 mg PO Q12HR Qty: 10 RF: 0 lisinopril 20 mg Tablet 40 mg PO DAILY Qty: 30 RF: 0 levothyroxine [Synthroid] 75 mcg Tablet 75 mcg PO DAILY@0600 Qty: 30 RF: 0 Continue hydrochlorothiazide 25 mg Tablet 25 mg PO DAILY RF: 0 glipizide-metformin 2.5-500 mg Tablet 1 tab PO TID RF: 0 Discontinued lisinopril 20 mg Tablet 20 mg PO DAILY RF: 0 naproxen [Naprosyn] 500 mg Tablet 500 mg PO BID RF: 0 Referrals: Robb Valderrama MD [Physician] - See Instructions (follow up in 2 weeks) Discharge Instructions Patient Printed Instructions: Laminectomy (DC) Post Discharge Care Plan Care Plan Goals: Your Health Problems: Goals to Promote Your Health: * To prevent worsening of your condition * To maintain your health at the optimal level Directions to Meet Your Goals: * Take your medications as prescribed * Follow your dietary instruction * Follow activity as directed * Keep your appointments as scheduled * Take your immunizations and boosters as scheduled * If your symptoms worsen call your PCP * If no PCP go to Urgent Care or Emergency Room Smoking is dangerous to your health. Avoid second hand smoke. You may reach the 24-hour crisis hotline for domestic abuse at . Status ED Status: Left Department
[2018-06-20 21:05] VITALS: BP 140/66; PULSE 90; RESP 17; TEMP 99.1; O2SAT 96
== END 2018-06-20 20:40 | DRG 460 ==
LOC: NEPE 09:27 → NEDA 13:22 → N06 15:00
PROVIDERS: ADMIT Internal Medicine; ATTEND Internal Medicine
DX: I10 Essential (primary) hypertension; R33.9 Retention of urine, unspecified; R32 Unspecified urinary incontinence; E03.9 Hypothyroidism, unspecified; K59.00 Constipation, unspecified; M43.16 Spondylolisthesis, lumbar region; R29.6 Repeated falls; M85.80 Other specified disorders of bone density and structure, unspecified site; D62 Acute posthemorrhagic anemia; E11.40 Type 2 diabetes mellitus with diabetic neuropathy, unspecified; R31.9 Hematuria, unspecified; M48.061 Spinal stenosis, lumbar region without neurogenic claudication; Z79.84 Long term (current) use of oral hypoglycemic drugs; N39.0 Urinary tract infection, site not specified
CPT/HCPCS: 36430; 51798; 70450; 71020; 71046; 72100; 72110; 72120; 72131; 72148; 72170; 73502; 73721; 76000; 76775; 76937; 80048; 80053; 81001; 82607; 82746; 82805; 82947; 82948; 82962; 83036; 83520; 83735; 83880; 84436; 84443; 84481; 84484; 85025; 85027; 85610; 85730; 86850; 86900; 86901; 86923; 87077; 87086; 87186; 93005; 93308; 94150; 97110; 97116; 97162; 97167; 97168; 97530; 97535; 99285; C1713; J0131; J0690; J0696; J1170; J1644; J1815; J1885; J1940; J2270; J2704; J3010; J3370; J3480; J7030; J7050; J7120; L0484; L0560; L0565; P9016; P9612